=== PATIENT | female | born 1935 | race Caucasian/White ===

== ENCOUNTER 2021-05-02 11:44 | Inpatient (IN) | payer MEDICARE, BC ==
--- OUTSIDE RECORDS SUMMARY | 2021-05-02 15:42 | XMSREPORT ---
:[address] [facility] s Address [address] [place] [address] Care Team Providers Name Role Phone MD Donnie Primary Care Provider Provider, Attributed RESOURCE Attributed Provider Unavailab le Reason for Visit Reason Comments Fall Patient states that she fell last night, because her leg gave out on her and now her knees and hips h urt and she doesnt feel like she can walk Knee Pain Auth/Cert Status Reason Specialty Diagnoses / Procedures Referred By Yasmany franz Referred To Contact Encounter Details Date Type Department Care Team Description [facility] [address] [place] [address] [phone] Atrial fibrillation 05/02/2021 Encounter [facility] Lenora Stallworth W, DO [address] [place] [address] [phone] ([facility]) [address] [facility] Treva Esquivel MD [address] [place] [address] [phone] [place] [address] Nilson Bush MD [address] [place] [address] [phone] Allergies Active Allergy Reactions Severity Noted Date Comments Janet Inhibitors Wheezing/Bronchospasm (High) High 02/22/2012 Sulfa Drugs Hives (High), Rash High 02/22/2012 documented as of this encounter (statuses as of 05/02/2021) Medications Medication Sig Dispensed Refills Start End Status Date Date losartan (COZAAR) 25 Take 25 mg by 0 Active mg tablet mouth 1 time per day rosuvastatin Take 1 tablet 90 tablet 4 08/29/19 Act hira (CRESTOR) 10 mg (10 mg) by mouth 19 tabletIndications: 1 time per day 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 (HCC) tamsulosin (FLOMAX) Take 1 capsule 90 capsule 1 10/22/19 Active 0.4 mg (0.4 mg) by 19 capsuleIndications: mouth 1 time per Recurrent UTI day potassium chloride Take 30 mEq by 0 04/25/20 Active (KLOR-CON M10) 10 mouth 1 time per 19 MEQ CR tablet day metoprolol succinate Take 50 mg by 1 06/09/20 Active (TOPROL XL) 50 mg SR mouth 1 time per 19 tablet (24 hr) day Multiple Take 1 capsule 0 Activ e Vitamins-Minerals by mouth 1 time (EYE VITAMINS) CAPS per day vitamin D3, Take 50 mcg by 0 Act hira cholecalciferol, 50 mouth 1 time per mcg (2000 unit) day tablet predniSONE 5 mg Take 1 tablet 90 tablet 2 01/22/20 Active tabletIndications: once a day. 21 Dermatomyositis Take after (HCC) breakfast. furosemide (LASIX) Take 1 tablet 90 tablet 4 02/29/20 Active 40 mg (40 mg) by mouth 21 tabletIndications: 1 time per day Acute on chronic systolic congestive heart failure (HCC) apixaban (ELIQUIS) 5 Take 1 tablet (5 60 tablet 0 05/02/20 Active MG mg) by mouth 2 tabletIndications: times a day Atrial Fibrillation Indications: Atrial Fibrillation omeprazole Take 1 capsule 60 capsule 0 05/02/20 Act hira (PRILOSEC) 20 mg (20 mg) by mouth capsuleIndications: 2 times a day Gastroesophageal before meals reflux disease without esophagitis aspirin 81 mg Take 81 mg by 0 Di scontinued enteric coated mouth every (St op Taking at tablet night at bedtime Dis charge) melatonin 5 MG TABS Take 5 mg by 0 Discontinued tablet mouth every (Data en try night at bedtime err or) acetaminophen Take 500 mg by 0 D iscontinued (TYLENOL) 500 mg mouth every 021 ( Stop Taking at tablet night at bedtime Dis charge) predniSONE 2.5 mg Take 5 mg once a 180 tablet 2 08/23/1904/07 Discontinued tabletIndications: day. Take after 021 (Stop Taking at Dermatomyositis breakfast. 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 Coronary artery disease involving kiowa tribe coronary kelli ry of kiowa tribe heart 08/27/2018 with angina pectoris Severe aortic stenosis 08/19/2018 Pneumonia 08/13/2018 Interstitial lung disease 08/13/2018 Shortness of breath 08/13/2018 Osteopenia 01/10/2015 Chronic pain 01/10/2015 Pulmonary fibrosis 01/10/2015 Osteoarthritis 09/26/2010 Other musculoskeletal symptoms referable to limbs(729. 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 Dermatomyositis 06/22/2006 Essential hypertension, benign 06/22/2006 Symptomatic menopausal or female climacteric states Other hyperlipidemia 06/22/2006 Disorder of bone and cartilage 06/22/2006 Personal history of other diseases of digestive system 09/11/2001 documented as of this encounter (statuses as of 05/02/2021) Resolved Problems Problem Noted Date Resolved Date Elevated troponin 08/13/2018 02/28/2021 CHF exacerbation 08/13/2018 02/28/2021 documented as of this encounter (statuses as of 05/02/2021) Immunizations Name Administration Dates Next Due Influenza Trivalent w/preserv 06/20/2010, 08/25/2009, 05/27, 06/03/2007, 06/22/2004, 06/04/2003 Pneumococcal Polysaccharide PPSV23 07/06/2004 Td(adult)preservative free 06/14/2005 documented as of this encounter Social History Tobacco Use Types Packs/Day Years Used Date Never Smoker Smokeless Tobacco: Never Used Alcohol Use Standard Drinks/Week Comments No 0 (1 standard drink = 0.6 oz pure alcoho l) Alcohol Habits Answer Date Recorded How often do you have a drink containing alcohol? Never 04/27/2021 How many drinks containing alcohol do you have on a typical Not asked day when you are drinking? How often do you have six or more drinks on one occasion? No t asked Comment: Not asked Sex Assigned at Date Recorded Not on file documented as of this encounter Last Filed Vital Signs Vital Sign Reading Time Taken Comments Blood Pressure 107/56 05/02/2021 11:32 AM CDT Pulse 92 05/02/2021 11:32 AM CDT Temperature 36.9 C (98.4 F) 05/02/2021 11:32 AM CDT Respiratory Rate 16 05/02/2021 11:32 AM CDT Oxygen Saturation 91% 05/02/2021 11:32 AM CDT Inhaled Oxygen Concentration - - Weight 71.5 kg (157 lb 10.1 oz) 04/27/2021 8:23 AM CDT Height 162.6 cm (5' 4.02") 04/27/2021 5:00 PM CDT Body Mass Index 27.04 04/27/2021 8:23 AM CDT documented in this encounter Functional Status Functional Status Response Date of Assessment Is the person deaf or does he/she have serious difficulty Ye s 10/09/2018 hearing? Is this person blind or does he/she have difficulty No 10/09/2018 seeing even when wearing glasses? Do you have difficulty with walking, balance, climbing Yes 02/28/2021 stairs, or had a fall in the last 3 months? Does the patient have difficulty dressing or bathing? Yes 10/09/2018 Because of a physical, mental, or emotional condition; No 10/09/2018 does this person have difficulty doing errands alone such as visiting a doctor's office or shopping? Cognitive Status Response Date of Assessment Because of a physical, mental, or emotional condition; No 10/09/2018 does this person have serious difficulty concentrating, remembering, or making decisions? documented as of this encounter Discharge Summaries Not on filedocumented in this encounter Medications at Time of Discharge Medication Sig Dispensed Refills Start Date End Date apixaban (ELIQUIS) 5 MG Take 1 tablet (5 mg) 60 tablet 0 06/01/2021 tabletIndications: by mouth 2 times a Atrial Fibrillation day Indications: Atrial Fibrillation omeprazole (PRILOSEC) 20 Take 1 capsule (20 60 capsule 0 06/01/2021 mg capsuleIndications: mg) by mouth 2 times Gastroesophageal reflux a day before meals disease without esophagitis furosemide (LASIX) 40 mg Take 1 tablet (40 90 tablet 4 02/04 tabletIndications: Acute mg) by mouth 1 time on chronic systolic per day congestive heart failure (HCC) predniSONE 5 mg Take 1 tablet once a 90 tablet 2 01/21/2021 tabletIndications: day. Take after Dermatomyositis (HCC) breakfast. potassium chloride Take 30 mEq by mouth 0 019 (KLOR-CON M10) 10 MEQ CR 1 time per day tablet metoprolol succinate Take 50 mg by mouth 1 2018 (TOPROL XL) 50 mg SR 1 time per day tablet (24 hr) tamsulosin (FLOMAX) 0.4 Take 1 capsule (0.4 90 capsule 1 mg capsuleIndications: mg) by mouth 1 time Recurrent UTI per day losartan (COZAAR) 25 mg Take 25 mg by mouth 0 tablet 1 time per day vitamin D3, Take 50 mcg by mouth 0 cholecalciferol, 50 mcg 1 time per day (2000 unit) tablet Multiple Take 1 capsule by 0 Vitamins-Minerals (EYE mouth 1 time per day VITAMINS) CAPS rosuvastatin (CRESTOR) Take 1 tablet (10 90 tablet 4 2018 10 mg tabletIndications: mg) by mouth 1 time Coronary artery disease per day involving kiowa tribe coronary artery of kiowa tribe heart with angina pectoris (HCC) documented as of this encounter Progress Notes Treva Esquivel MD - 05/01/2021 12:52 PM CDT PROGRESS NOTE ASSESSMENT AND PLAN Heidi is a 85-year-old female with past medical history of CAD s/p PCI, history of diabetes 2019 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 ER work-up showed UTI. EKG showed atrial fibrillation. X-ray of the knees/pelvis did not show any new fracture. Blood cultures were drawn troponin was 0.018 white count 10.4 hemoglobin 10.7 [id number] potassium 4.1 sodium 140 creatinine 0.8 magnesium 2.0 #Klebsiella UTI #Physical deconditioning #Mechanical fall Rocephin last dose today, pansensitive PT OT - SNF Fall risk #New atrial fibrillation #[id number] score of 5 Risks benefits were addressed with the patient by the admitting doctor and she was started on Eliquis. Metoprolol for rate control #CAD s/p PCI #Aortic stenosis s/p TAVR #Chronic diastolic heart failure Continue metoprolol, Lasix, losartan - dc aspirin as she is now on eliquis #Dermatomyositis on prednisone with Prilosec for GI prophylaxis Home dose resumed # OA - low back hip knee- no acute #, able to bear weight - tylenol lidocaine patch menthol Flexerilas ordered CODE STATUS DNR Disposition - pending SNF placement Subjective No acute events overnight Objective Vital signs reviewed Alert and oriented S1 variable Chest clear to auscultation Abdomen is soft Trace ankle edema Treva Zavala MD - 04/30/2021 12:28 PM CDT PROGRESS NOTE ASSESSMENT AND PLAN Heidi is a 85-year-old female with past medical history of CAD s/p PCI, history of diabetes 2019 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 ER work-up showed UTI. EKG showed atrial fibrillation. X-ray of the knees/pelvis did not show any new fracture. Blood cultures were drawn troponin was 0.018 white count 10.4 hemoglobin 10.7 [id number] potassium 4.1 sodium 140 creatinine 0.8 magnesium 2.0 #Klebsiella UTI #Physical deconditioning #Mechanical fall Rocephin last dose today, pansensitive PT OT - SNF Fall risk #New atrial fibrillation #[id number] score of 5 Risks benefits were addressed with the patient by the admitting doctor and she was started on Eliquis. Metoprolol for rate control #CAD s/p PCI #Aortic stenosis s/p TAVR #Chronic diastolic heart failure Continue metoprolol, Lasix, losartan - dc aspirin as she is now on eliquis #Dermatomyositis on prednisone with Prilosec for GI prophylaxis Home dose resumed # OA - low back hip knee- no acute #, able to bear weight - tylenol lidocaine patch menthol as ordered CODE STATUS DNR Disposition - pending SNF placement Subjective No acute events overnight Objective Vital signs reviewed Alert and oriented S1 variable Chest clear to auscultation Abdomen is soft Trace ankle edema Treva Zavala MD - 04/29/2021 4:34 PM CDT PROGRESS NOTE ASSESSMENT AND PLAN Heidi is a 85-year-old female with past medical history of CAD s/p PCI, history of diabetes 2019 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 ER work-up showed UTI. EKG showed atrial fibrillation. X-ray of the knees/pelvis did not show any new fracture. Blood cultures were drawn troponin was 0.018 white count 10.4 hemoglobin 10.7 potassium 4.1 sodium 140 creatinine 0.8 magnesium 2.0 #Klebsiella UTI #Physical deconditioning #Mechanical fall Continue Rocephin, pansensitive PT OT - SNF Fall risk #New atrial fibrillation #[id number] score of 5 Risks benefits were addressed with the patient by the admitting doctor and she was started on Eliquis. Metoprolol for rate control #CAD s/p PCI #Aortic stenosis s/p TAVR #Chronic diastolic heart failure Continue metoprolol, Lasix, losartan - dc aspirin as she is now on eliquis #Dermatomyositis on prednisone with Prilosec for GI prophylaxis Home dose resumed CODE STATUS DNR Disposition - pending SNF placement Subjective No acute events overnight Objective Vital signs reviewed Alert and oriented S1 variable Chest clear to auscultation Abdomen is soft Trace ankle edema Treva robertson MD - 04/28/2021 3:16 PM CDT PROGRESS NOTE ASSESSMENT AND PLAN Heidi is a 85-year-old female with past medical history of CAD s/p PCI, history of diabetes 2019 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 ER work-up showed UTI. EKG showed atrial fibrillation. X-ray of the knees/pelvis did not show any new fracture. Blood cultures were drawn troponin was 0.018 white count 10.4 hemoglobin 10.7 potassium 4.1 sodium 140 creatinine 0.8 magnesium 2.0 #Klebsiella UTI #Physical deconditioning #Mechanical fall Continue Rocephin follow urine cultures and sensitivities Physical and Occupational Therapy consulted Fall risk #New atrial fibrillation #[id number] score of 5 Risks benefits were addressed with the patient by the admitting doctor and she was started on Eliquis. Metoprolol for rate control #CAD s/p PCI #Aortic stenosis s/p TAVR #Chronic diastolic heart failure Continue metoprolol, Lasix, losartan - dc aspirin as she is now on eliquis #Dermatomyositis on prednisone with Prilosec for GI prophylaxis Home dose resumed CODE STATUS DNR Subjective States that she is falling apart on physical deconditioning Has chronic knee pain and sometimes her knees give out At baseline walks with a walker Objective Vital signs reviewed Alert and oriented S1 variable Chest clear to auscultation Abdomen is soft Trace ankle edema documented in this encounter H&P Notes Lenora Stallworth DO - 04/27/2021 2:53 PM CDT Hospital Admission History and Physical Chief complaint: Fall, weakness History of chief complaint: Patient is an 85-year-old female with a background history of coronary disease with PCI to LAD in 2019. She had a history of PIETRO in 2019. She is on prednisone chronicallyfor dermatomyositis. Last night patient was try to walk up the stairs when her leg gave out. She did not sustain any injury injury to her head or neck. There is no loss of consciousness. Today she comes in the ER complaining of pain in her knees and generalized weakness. In the emergency department patient had a positive urinalysis with positive leuk esterase and positive nitrates and greater than 50 white cells. Patient's EKG showed that she was in atrial fibrillation. I am unable to locate any previous EKGs showing atrial fibrillation or any previous diagnosis on her chart. Patient had x-rays of both of her knees and her pelvis which did not show any acute fracture. Patient has had urinary frequency recently. She had asked her primary care physician to do a urinalysis by the PCP told her that it was not indicated. Review of systems: No loss of consciousness no head or neck injury no previous history of atrial fibrillation no fevers positive urinary frequency rest review of systems are negative Physical exam patient's vital signs patient afebrile pulse 64 respiratory rate is 16 blood pressure 148/98 saturation 92 % General she resting bed no acute distress head atraumatic eyes no icterus heart is a regular lungs are clear to auscultation abdomen soft nontender extremities no pitting edema neurologic alert and oriented mentating well psychiatric is calm pleasant cooperative skin no rash noted musculoskeletal no major joint deformities no pain with range of motion however ankles knees or hips. No pain with rangeof motion of her wrist elbows or shoulders. She has some very minimal tenderness in the soft tissueand in her posterior left thigh. Labs: Troponin is 0.018 0.016 white count 10.4 hemoglobin is 10.7 platelet count is 210 glucose 91 sodium is 140 potassium is 4.1 bicarb is 24 creatinine 0.8 calcium is 8.8 magnesium is 2.0 LFTs withinnormal limits Assessment: 1. Fall without apparent injury 2. UTI, suspect this is causing her weakness 3. New onset atrial fibrillation with controlled rate 4. History of coronary disease with previous PCI and very minimally elevated troponin without any anginal symptoms 5. History of Pietro 6. Dermatomyositis on prednisone 7. Hypertension 8. Chronic diastolic heart failure Plan: 1. IV ceftriaxone 2. IV fluids 3. PT consult 4. Await results of urine culture 5. ekg monitor 6. TSH 7. Trend troponin 8. Patient has a [id number] score of 5, discussed risk versus benefits of anticoagulation with patient and she agrees to proceed we will initiate treatment with Eliquis 9. PPI while on anticoagulation plus prednisone 10. Double dose of prednisone due to stress severe acute illness 11. Patient is DNR. Patient reports that she did CPR on her mother and understands what CPR is. History Prior to Admission Medications Prescriptions Last Dose Informant Patient Reported? Taking? Multiple Vitamins-Minerals (EYE VITAMINS) CAPS Yes No Sig: Take 1 capsule by mouth 1 time per day acetaminophen (TYLENOL) 500 mg tablet Yes No Sig: Take 500 mg by mouth every night at bedtime Patient not taking: Reported on 01/21/2021 aspirin 81 mg enteric coated tablet Self Yes No Sig: Take 81 mg by mouth every night at bedtime furosemide (LASIX) 40 mg tablet Yes No Sig: Take 1 tablet (40 mg) by mouth 1 time per day losartan (COZAAR) 25 mg tablet Self Yes No Sig: Take 25 mg by mouth 1 time per day melatonin 5 MG TABS tablet Yes No Sig: Take 5 mg by mouth every night at bedtime metoprolol succinate (TOPROL XL) 50 mg SR tablet (24 hr) Yes No Sig: Take 50 mg by mouth 1 time per day potassium chloride (KLOR-CON M10) 10 MEQ CR tablet Yes No Sig: Take 30 mEq by mouth 1 time per day predniSONE 2.5 mg tablet No No Sig: Take 5 mg once a day. Take after breakfast. predniSONE 5 mg tablet No No Sig: Take 1 tablet once a day. Take after breakfast. rosuvastatin (CRESTOR) 10 mg tablet Self No No Sig: Take 1 tablet (10 mg) by mouth 1 time per day tamsulosin (FLOMAX) 0.4 mg capsule No No Sig: Take 1 capsule (0.4 mg) by mouth 1 time per day vitamin D3, cholecalciferol, 50 mcg (2000 unit) tablet Yes No Sig: Take 50 mcg by mouth 1 time per day Facility-Administered Medications: None Allergies Allergen Reactions Janet Inhibitors Wheezing/Bronchospasm (High) Sulfa Drugs Hives (High) and Rash Past Medical History: Diagnosis Date CAD (coronary artery disease), kiowa tribe coronary artery CHF (congestive heart failure) (HCC) CHF exacerbation (HCC) 08/13/2018 Dermatomyositis (HCC) Elevated troponin 08/13/2018 Hyperlipidemia Hypertension Pulmonary fibrosis (HCC) Severe aortic stenosis 08/19/2018 Past Surgical History: Procedure Laterality Date CHOLECYSTECTOMY HYSTERECTOMY UPPER ENDOSCOPY N/A 08/22/2018 Procedure: UPPER ENDOSCOPY;; Surgeon: Lulu Cox MD Family History Problem Relation Age of Onset Heart Father Diabetes Father Type II Heart Mother Diabetes Mother Type II Heart Failure Mother CHF Diabetes Sister Type II Heart Sister heart problems Bladder Cancer Neg Hx Kidney Cancer Neg Hx Kidney Disease Neg Hx Nephrolithiasis Neg Hx Prostate Cancer Neg Hx Testicular Cancer Neg Hx Social History Socioeconomic History Marital status: Spouse name: Not on file Number of children: 2 Years of education: 15 Highest education level: Not on file Occupational History Occupation: Retired nurse Tobacco Use Smoking status: Never Smoker Smokeless tobacco: Never Used Substance and Sexual Activity Alcohol use: No Drug use: No Social Determinants of Health Physical Activity: Days of Exercise per Week: Minutes of Exercise per Session: Stress: Feeling of Stress : Social Connections: Frequency of Communication with Friends and Family: Frequency of Social Gatherings with Friends and Family: Attends Buddhist Services: Active Member of Clubs or Organizations: Attends Club or Organization Meetings: Marital Status: Intimate Partner Violence: Fear of Current or Ex-Partner: Emotionally Abused: Physically Abused: Sexually Abused: Financial Resource Strain: Difficulty of Paying Living Expenses: Food Insecurity: Worried About Running Out of Food in the Last Year: Ran Out of Food in the Last Year: Transportation Needs: Lack of Transportation (Medical): Lack of Transportation (Non-Medical): Review of Systems Review of Systems Physical / Results Current Vital Signs Temp: 98.5 F (36.9 C) BP: 120/63 Weight: 71.5 kg (157 lb 10.1 oz) SpO2: 98 % Resp: 17 Pulse: 83 O2 Device: Room Air Pain Ratin Physical Exam documented in this encounter ED Notes Nicho Ruth RN - 04/27/2021 1:17 PM CDT Ordered pt food. Leopoldo Li MD - 04/27/2021 9:00 AM CDT Images from the original note were not included. DIAGNOSIS 1. Weakness 2. Contusion of knee, unspecified laterality, initial encounter 3. Urinary tract infection without hematuria, site unspecified DISPOSITION Patient Admitted and Treated in this Facility Data Unavailable SunApr 27, 2021 9:00 AM CDT FOLLOW UP INFORMATION DISCHARGE MEDS Medication List ASK your doctor about these medications aspirin 81 mg enteric coated tablet eye vitamins Caps furosemide 40 mg tablet Commonly known as: LASIX losartan 25 mg tablet melatonin 5 MG Tabs tablet metoprolol succinate 50 mg SR tablet (24 hr) Commonly known as: TOPROL XL potassium chloride 10 MEQ CR tablet Commonly known as: KLOR-CON M10 * predniSONE 2.5 mg tablet Take 5 mg once a day. Take after breakfast. * predniSONE 5 mg tablet Take 1 tablet once a day. Take after breakfast. rosuvastatin 10 mg tablet Commonly known as: CRESTOR Take 1 tablet (10 mg) by mouth 1 time per day tamsulosin 0.4 mg capsule Commonly known as: Flomax Take 1 capsule (0.4 mg) by mouth 1 time per day TYLENOL 500 mg tablet Generic drug: acetaminophen vitamin D3 (cholecalciferol) 50 mcg (2000 unit) tablet * This list has 2 medication(s) that are the same as other medications prescribed for you. Read thedirections carefully, and ask your doctor or other care provider to review them with you. HPI / History / ROS Chief Complaint Patient presents with Fall Patient states that she fell last night, because her leg gave out on her and now her knees and hips hurt and she doesnt feel like she can walk Knee Pain HPI 85-year-old female with history significant for CAD, hypertension, hyperlipidemia. She arrives today to the emergency department secondary to generalized weakness and bilateral knee pain. This patient reports she was try to fix her toilet and she developed a strain in her left hamstrings yesterday. Today she has noted increasing generalized weakness. The patient reports that her knee gave outthis morning she fell onto her knees fairly hard. She had no head injury, loss of consciousness denies head or neck pain. Since that time she has been unable to perform basic activities like get up and get to the bathroom. She does live in a split-level house and cannot navigate the stairs at this time. She otherwise denies fever, chills, cough, nausea, vomiting. She denies melena or hematochezia. She denies dysuria or urinary frequency. At rest pain is rated at minimal. Some minor pain in the left distal thigh with movement. No distal change in strength or sensation. ALLERGIES Allergies Allergen Reactions Janet Inhibitors Wheezing/Bronchospasm (High) Sulfa Drugs Hives (High) and Rash MEDICAL/SURGICAL/SOCIAL HISTORY Past Medical History: Diagnosis Date CAD (coronary artery disease), [place] coronary artery CHF (congestive heart failure) (HCC) CHF exacerbation (HCC) 08/13/2018 Dermatomyositis (HCC) Elevated troponin 08/13/2018 Hyperlipidemia Hypertension Pulmonary fibrosis (HCC) Severe aortic stenosis 08/19/2018 Past Surgical History: Procedure Laterality Date CHOLECYSTECTOMY HYSTERECTOMY UPPER ENDOSCOPY N/A 08/22/2018 Procedure: UPPER ENDOSCOPY;; Surgeon: Lulu Cox MD Family History Problem Relation Age of Onset Heart Father Diabetes Father Type II Heart Mother Diabetes Mother Type II Heart Failure Mother CHF Diabetes Sister Type II Heart Sister heart problems Bladder Cancer Neg Hx Kidney Cancer Neg Hx Kidney Disease Neg Hx Nephrolithiasis Neg Hx Prostate Cancer Neg Hx Testicular Cancer Neg Hx Social History Socioeconomic History Marital status: Spouse name: Not on file Number of children: 2 Years of education: 15 Highest education level: Not on file Occupational History Occupation: Retired nurse Tobacco Use Smoking status: Never Smoker Smokeless tobacco: Never Used Substance and Sexual Activity Alcohol use: No Drug use: No Social Determinants of Health Physical Activity: Days of Exercise per Week: Minutes of Exercise per Session: Stress: Feeling of Stress : Social Connections: Frequency of Communication with Friends and Family: Frequency of Social Gatherings with Friends and Family: Attends Buddhist Services: Active Member of Clubs or Organizations: Attends Club or Organization Meetings: Marital Status: Intimate Partner Violence: Fear of Current or Ex-Partner: Emotionally Abused: Physically Abused: Sexually Abused: Financial Resource Strain: Difficulty of Paying Living Expenses: Food Insecurity: Worried About Running Out of Food in the Last Year: Ran Out of Food in the Last Year: Transportation Needs: Lack of Transportation (Medical): Lack of Transportation (Non-Medical): HOME MEDICATIONS Current Outpatient Medications Medication Sig furosemide (LASIX) 40 mg tablet Take 1 tablet (40 mg) by mouth 1 time per day vitamin D3, cholecalciferol, 50 mcg (2000 unit) tablet Take 50 mcg by mouth 1 time per day predniSONE 5 mg tablet Take 1 tablet once a day. Take after breakfast. melatonin 5 MG TABS tablet Take 5 mg by mouth every night at bedtime acetaminophen (TYLENOL) 500 mg tablet Take 500 mg by mouth every night at bedtime (Patient not taking: Reported on 01/21/2021) Multiple Vitamins-Minerals (EYE VITAMINS) CAPS Take 1 capsule by mouth 1 time per day predniSONE 2.5 mg tablet Take 5 mg once a day. Take after breakfast. potassium chloride (KLOR-CON M10) 10 MEQ CR tablet Take 30 mEq by mouth 1 time per day metoprolol succinate (TOPROL XL) 50 mg SR tablet (24 hr) Take 50 mg by mouth 1 time per day tamsulosin (FLOMAX) 0.4 mg capsule Take 1 capsule (0.4 mg) by mouth 1 time per day rosuvastatin (CRESTOR) 10 mg tablet Take 1 tablet (10 mg) by mouth 1 time per day aspirin 81 mg enteric coated tablet Take 81 mg by mouth every night at bedtime losartan (COZAAR) 25 mg tablet Take 25 mg by mouth 1 time per day ROS Review of Systems Constitutional: Positive for fatigue. Negative for appetite change, chills and fever. HENT: Negative for congestion, ear pain, rhinorrhea and sore throat. Eyes: Negative. Negative for visual disturbance. Respiratory: Negative for cough, chest tightness, shortness of breath and wheezing. Cardiovascular: Negative. Negative for chest pain, palpitations and leg swelling. Gastrointestinal: Negative for abdominal pain, blood in stool, diarrhea, nausea and vomiting. Endocrine: Negative. Genitourinary: Negative for difficulty urinating, dysuria and flank pain. Musculoskeletal: Positive for arthralgias. Negative for back pain and joint swelling. Skin: Negative. Negative for color change, rash and wound. Allergic/Immunologic: Negative for immunocompromised state. Neurological: Positive for weakness. Negative for light-headedness and headaches. Hematological: Does not bruise/bleed easily. Psychiatric/Behavioral: Negative. Negative for confusion. All other systems reviewed and are negative. Physical / Results PHYSICAL EXAM ED Triage Vitals [04/27/21 0823] Temp Temp Source Pulse Resp BP SpO2 O2 Flow Rate (L/min) O2 Device 97.9 F (36.6 C) Oral 84 15 159/79 99 % -- RA Physical Exam Vitals and nursing note reviewed. Constitutional: General: She is not in acute distress. Appearance: She is well-developed. She is not diaphoretic. HENT: Head: Normocephalic and atraumatic. Right Ear: Hearing and external ear normal. Left Ear: Hearing and external ear normal. Nose: Nose normal. Mouth/Throat: Pharynx: No oropharyngeal exudate or uvula swelling. Tonsils: No tonsillar abscesses. Eyes: Conjunctiva/sclera: Conjunctivae normal. Right eye: Right conjunctiva is not injected. Left eye: Left conjunctiva is not injected. Pupils: Pupils are equal, round, and reactive to light. Neck: Trachea: Phonation normal. Cardiovascular: Rate and Rhythm: Normal rate and regular rhythm. Pulses: Normal pulses. Heart sounds: Normal heart sounds. No murmur heard. Pulmonary: Effort: Pulmonary effort is normal. No respiratory distress. Breath sounds: Normal breath sounds. No rales. Chest: Chest wall: No tenderness or crepitus. Abdominal: General: There is no distension. Palpations: Abdomen is soft. Abdomen is not rigid. There is no mass. Tenderness: There is no abdominal tenderness. There is no guarding or rebound. Musculoskeletal: General: Normal range of motion. Cervical back: Full passive range of motion without pain and normal range of motion. No rigidity.Normal range of motion. Right upper leg: No swelling, edema or tenderness. Left upper leg: No swelling, edema or tenderness. Right knee: No bony tenderness. Normal range of motion. Tenderness present. Left knee: No bony tenderness. Normal range of motion. Tenderness present. Legs: Skin: General: Skin is warm and dry. Capillary Refill: Capillary refill takes less than 2 seconds. Coloration: Skin is not pale. Findings: No erythema or rash. Neurological: Mental Status: She is alert and oriented to person, place, and time. GCS: GCS eye subscore is 4. GCS verbal subscore is 5. GCS motor subscore is 6. Cranial Nerves: No cranial nerve deficit. Sensory: No sensory deficit. Psychiatric: Speech: Speech normal. Behavior: Behavior normal. Scoring Scales [place] Coma Scale Score: 15 ED COURSE PROCEDURES Procedures MDM-CODING: MDM 85-year-old female with history significant for CAD, hypertension, hyperlipidemia. She arrives today to the emergency department secondary to generalized weakness and bilateral knee pain. On arrival to the emergency department this patient is noted to be alert. She is presently afebrile and hemodynamically stable with mild hypertension. GCS 15. She has no signs of neurovascular deficit. My clinical suspicion for stroke, dissection, intracranial bleed warranting CT imaging of the head is very low. She has no head trauma. She otherwise is interactive with no signs of respiratory distress. Low suspicion for dysrhythmia, ACS, pulmonary embolus, pneumothorax or pneumonia. Etiology of weaknessis unclear. She has no abdominal discomfort. No sign of GI loss I would plan for laboratory studies. Certainly urinary tract infection would be a strong consideration. She does report at times the s ensation she does not fully empty her bladder. From a traumatic standpoint I do not see any obvioussigns of trauma. No sign of posterior left thigh ecchymosis, hematoma. There is no deformity. My clinical suspicion for hip or the fracture would be low. I did obtain imaging demonstrating no sign of obvious fracture. Urinalysis consistent with urinary tract infection likely explaining weakness. Plan for antibiotics. Additionally EKG does demonstrate what appears to be rate controlled atrial fibrillation this appears to be new. Case discussed with hospital internal medicine for plan for acute hospitalization. Nicho Azul RN - 04/27/2021 8:25 AM CDT Plan of care includes addressing Musculoskeletal with attention to Fall (Patient states that she fell last night, because her leg gave out on her and now her knees and hips hurt and she doesnt feel like she can walk) and Knee Pain . documented in this encounter Miscellaneous Notes Care Planning - Halley Pugh RN - 05/02/2021 12:30 PM CDT Problem: RISK FOR FALLS Goal: FALL PREVENTION BEHAVIOR Description: DEFINITION: Personal or family care rep actions to minimize risk factors that might precipitate falls in the personal environment. 1=Never demonstrated, 2=Rarely demonstrated, 3=Sometimes demonstrated, 4=Often demonstrated, 5=Consistently demonstrated. Outcome: Outcome acceptable for discharge Vanessa Acuña LSW - 05/02/2021 11:58 AM CDT CASE MANAGEMENT REFERRAL EDUCATION Patient in need of the following services: Transitional Care / Fdc Facility / Swing Bed Discussion of this need and/or printed listing of available agencies has been provided to patient/substitute decision maker. Opportunities have been given for questions to be asked and answered. Patient/Substitute decision maker agency preferences for services (list in order of preference): 1. [place]/[facility] 2. [place]/[facility] Referrals Made: Profiled via [facility] to [facility] SNFs and [facility] SNFs/swingbed Medicare Comparison Information: Medicare guidelines require referring agencies to provide information regarding agency quality ratings. [facility] may assist with questions about facilities but cannot make recommendations. Patients and their families/decision makers are able to compare ratings of facilities at the following website: h ttps://www.medicare.gov/wifpb-psmh-jefnpxxjl/rkhu-bbkxgxc-zjfymap-[facility]-providers or you may call 1-800-MEDICARE Acceptance/Placement: [facility] shares necessary clinical information with potential agencies to allow them to screen patients for safe admission to their facilities. This information is shared via secure communication. Acceptance by a post-acute facility is dependent on many factors including space, care needs, staffing, and insurance coverage. Financial disclosure: Verification of ownership of any agency/facility is available in the above Medicare website. [facility] is affiliated with [facility]-owned home care, hospice, andskilled nursing facilities, including agencies with [employer] in the name and [employer]. Additional agencies may not have [employer] in their name. Medicare guidelines require [facility] to provide a written list of options for your desired care. Youwill be provided a copy if desired. A copy of this document will be given to patient/substitute decision maker as confirmation of conversation regarding referrals and placement options. SIGNED: ROSA Ny [employer] Case Management [facility]--[place], [place] P) [phone] ase Mgmt - Vanessa Lee LSW - 05/02/2021 11:02 AM CDT CASE MANAGEMENT / SOCIAL SERVICE FINAL TRANSITION PLAN TRANSITION DATE: 05/02 TRANSITION TIME: 1230/1300 INTENDED PAYER SOURCE FOR AGENCY: Medicare TRANSITION DESTINATION: [address] JOSTIN Solis Nurse to nurse: [phone] MD to MD: [phone] SPECIAL TRANSITION DAY INSTRUCTIONS TO NURSE / MD: RECEPTION CLERK: Please fax paperwork to above fax number Nursing: please call report at above number before or just as patient leaves. MD: please do Interagency transfer order set, ensure orders for PT, OT, ST(if needed) are included. When doing medication orders, there cannot be any range orders, and indication is needed for all meds. DOES ACCEPTING FACILITY REQUIRE COVID TESTING BEFORE DISCHARGE: Needs one negative test within 24-48 hours TRANSITION TRANSPORTATION: Family Car TRANSPORTATION PAYMENT: Not applicable TRANSITION CHOICES OFFERED: Swing Bed Transitional Care DOES THE PATIENT HAVE A PRIMARY CARE PHYSICIAN? Yes Edy Fields MD PATIENT / SUBSTITUTE DECISION MAKER GOAL UPON TRANSITION: First Choice: Swing Bed PATIENT CHOICE EDUCATION: Choice form completed in Case Management note and copy given to patient/family MEDICARE 3 IP MIDNIGHT CRITERIA MET: Yes: met RESOURCE(S) PROVIDED: Placement DOES PATIENT HAVE CLOTHING TO WEAR AT DISCHARGE? Yes ANTICIPATED MODE OF TRANSPORT TO AND FROM FOLLOW UP APPOINTMENTS: As arranged by accepting facility Family Car VERIFIED CORRECT PHARMACY IS ENTERED FOR DISCHARGE: Yes - Pharmacy: [facility] ([facility] [address] [address] METHOD OF PRESCRIBING MEDICATIONS: Medications to be E-prescribed to above pharmacy TRANSITION ROUNDING COMPLETED WITH THE FOLLOWING: Patient / family Visual Associate Attending Bedside RN Discussed in person Discussed via telephone Secure chat COMMENTS / PATIENT AND FAMILY RESPONSE TO PLAN: Met with patient at bedside and reviewed d/c plan. Patient agreeable to bed offer from [facility]. Update provided to daughter via phone and she will provide transportation to [facility]. All d/c details coordinated with [facility] at [facility]. JOSTIN PAS submitted on May 02, 2021 at 11:28:43 AM CDT. The confirmation number is [id number]. CURRENT READMISSION RISK SCORE / HANDOFF: Predictive Risk Score Risk of Unplanned Readmission: 12.1 Handoff given: N/A SIGNED: ROSA Ny [employer] Case Management [facility] [place] P) [phone] linical Team - Ronda Larsen RN - 05/02/2021 1:50 AM CDT Shift Summary: [id number] Medication adherent. Reported generalized pain on left leg and knees bilateral. COCOPAH bilateral, hearing aids in. Pleasant and cooperative. PRN APAP administered for generalized pain. Assessment Neuro: A/Ox4. Cardiac: Tele- A-Fib Pulmonary: Denies SOB. Lungs are clear. GI/: No issues with elimination. IV's/Lines: L AC 20 g Mobility: Gait belt, FWW. Up with one. Will continue to monitor. are Planning - Ronda Larsen RN - 05/02/2021 1:49 AM CDT Problem: RISK FOR FALLS Goal: FALL PREVENTION BEHAVIOR Description: DEFINITION: Personal or family care rep actions to minimize risk factors that might precipitate falls in the personal environment. 1=Never demonstrated, 2=Rarely demonstrated, 3=Sometimes demonstrated, 4=Often demonstrated, 5=Consistently demonstrated. Outcome: NOC Rating 4 Flowsheets (Taken 05/02/2021 0148) Initial Score: 2 Target Score: 4 Plan of care reviewed with: Patient Patient specific goal for the day: Patient will use the call light appropriately Patient specific goal for the stay: Remains free from falls Achieve goal for stay: By discharge Patient Progress: A/Ox4. VSS on RA. Utilizes the call light appropriately. Gait belt and FWW used. Unsteady gait. Will continue to monitor. are Planning - Kaylin Kendall RN - 05/01/2021 12:49 PM CDT Problem: RISK FOR FALLS Goal: FALL PREVENTION BEHAVIOR Description: DEFINITION: Personal or family care rep actions to minimize risk factors that might precipitate falls in the personal environment. 1=Never demonstrated, 2=Rarely demonstrated, 3=Sometimes demonstrated, 4=Often demonstrated, 5=Consistently demonstrated. Flowsheets (Taken 05/01/2021 1247) Initial Score: 2 Target Score: 4 Plan of care reviewed with: Patient Patient specific goal for the day: Patient will use the call light appropriately Patient specific goal for the stay: Remains free from falls Achieve goal for stay: By discharge Patient Progress: A&Ox4, confused at times. VSS on RA. Pt is using the call light approprietly, will continue to monitor. linical Team - Myrna Juarez RN - 04/30/2021 11:51 PM CDT VSS (see flowsheets). No concerns of SOB. Patient states left leg pain from her buttocks down to herknee. Med ointment applied (see MAR). Patient states "could be sciatica pain." Turned as needed overnight for relief. No other concerns at this time. Will continue to monitor. linical Team - Rosalva Haq RN - 04/30/2021 5:51 PM CDT Pt sat in the chair for meals. She showered. Pt's pain was at her worst when she was in bed. Icy hotand lidocaine patches were placed on pt's Left back upper leg and around the knees. Pt also getting Tylenol. Pt did say that it did help. Will continue to monitor. are Planning - Rosalva Haq RN - 04/30/2021 5:51 PM CDT Problem: RISK FOR FALLS Goal: FALL PREVENTION BEHAVIOR Description: DEFINITION: Personal or family care rep actions to minimize risk factors that might precipitate falls in the personal environment. 1=Never demonstrated, 2=Rarely demonstrated, 3=Sometimes demonstrated, 4=Often demonstrated, 5=Consistently demonstrated. Outcome: NOC Rating 3 Flowsheets (Taken 04/30/2021 1750) Plan of care reviewed with: Patient Patient specific goal for the day: Be free of falls Patient specific goal for the stay: Remain free of falls/injury Achieve goal for stay: By discharge Patient Progress: Pt has been calling for help with assistance. She is weak on her feet. Will continue to monitor. are Planning - Caro Niño RN - 04/30/2021 4:28 AM CDT Problem: RISK FOR FALLS Goal: FALL PREVENTION BEHAVIOR Description: DEFINITION: Personal or family care rep actions to minimize risk factors that might precipitate falls in the personal environment. 1=Never demonstrated, 2=Rarely demonstrated, 3=Sometimes demonstrated, 4=Often demonstrated, 5=Consistently demonstrated. Outcome: NOC Rating 4 Flowsheets (Taken 04/30/2021 2537) Plan of care reviewed with: Patient Patient specific goal for the day: Call as needed Patient specific goal for the stay: Remain free of falls/injury Achieve goal for stay: By discharge Patient Progress: Calling as needed. VSS on RA Note: Bed alarms in place, PT ax4 and calls as needed linical Team - Nadiya Membreno RN - 04/29/2021 7:51 PM CDT [id number] AOx4. VSS on RA. Tele afib, rate controlled 80s. Denies chest pain, n/v and SOB. Up with 1 fww gb. IV abx. Planning for placement. ccupational Therapy - Nohemi Santiago OTR/L - 04/29/2021 2:30 PM CDT Occupational Therapy Acute Care Evaluation Note Impression/Recommendations Recommending low intensity setting upon medical stability. Patient is presenting with impairments including decreased strength/endurance. Patient is demonstrating ability to complete ADLs with assist of 1. Patient will continue to benefit from skilled OT in order to address the above deficits to increase functional independence in ADLs, IADLs, and transfers/mobility. Admitting Diagnosis: ICD-10-CM 1. Weakness R53.1 2. Contusion of knee, unspecified laterality, initial encounter S80.00XA 3. Urinary tract infection without hematuria, site unspecified N39.0 History of Present Illness: Refer to H&P for details Past Medical History: Past Medical History: Diagnosis Date CAD (coronary artery disease), [place] coronary artery CHF (congestive heart failure) (HCC) CHF exacerbation (HCC) 08/13/2018 Dermatomyositis (HCC) Elevated troponin 08/13/2018 Hyperlipidemia Hypertension Pulmonary fibrosis (HCC) Severe aortic stenosis 08/19/2018 Activity Level: Progressive mobility bundle Precautions: Fall Risk Infection Control: Standard Precautions Patient History Social/Home Environment: Patient lives: alone House: split level home Home Environment: Bed/Bath on main level: No Bathroom Setup: walk in shower with curtain Employment: retired Prior Level of Function Independent with: ADLs, medications, finances Assistance needed with: meals - meals on wheels T, W, TH and daughter cooks/bakes remainder of weekand freezes meals for patient. Daughter assists with cleaning, laundry, transportation Adaptive Equipment Available: grab bar toilet, grab bar shower Present for Eval: Patient Objective Activities of Daily Living: Feeding: independent Grooming: minimal assistance standing at sink, using FWW Upper Extremity Dressing: assist to adjust gown Lower Extremity Dressing: minimal assistance stephanie socks, flexed at hips all the way to feet; which could be a fall risk if alone Bathing: to be assessed Toileting: moderate assistance assist for lilia cares, adjusting brief Homemaking: daughter helps with majority Comments: Educated safety/energy conservation during ADLs Transfers: Bed: minimal assistance supine to sit Chair: minimal assistance using FWW Toilet: minimal assistance using FWW Tub/Shower: to be assessed Mobility/Ambulation: minimal assistance with FWW flexed posture during transfer/ambulation, reportsthis is baseline. Educated importance of upright posture during transfers/self cares At end of session: patient up in chair, call light and tray table within reach, education provided on use call light and waiting for assistance prior to transferring and Gripper socks and gait belt donned for all OOB activity. Pain: Pain at rest: 0/10 Pain during activity: 0/10 Location: none Vitals: Pt on room air with signs of shortness of breath during OT. Unable to get pulse ox to read during session; however patient reports no SOB upon therapist leaving room Upper Extremity Function: Range of Motion: Right:within functional limits Left: within functional limits Strength: Right: within functional limits Left: within functional limits Endurance: limited Cognition: Orientation: alert. Oriented to: Person, place, time, situation. COCOPAH Attention: intact Following Directions: intact Safety Awareness: appears intact Impulsivity: None Visual/Perception: Denies acute deficits Glasses: Yes- at all times Interdisciplinary Communication: patient Education Education/Training provided: Role of OT, plan of care, ADLs, transfers/mobility, safety, AE needs,d/c recommendations Learners: Patient Readiness: accepting Method of Training: verbal Response: Verbalizes understanding; Will benefit from continued reinforcement: yes Adaptive Equipment Recommendations Adaptive Equipment Recommended: To further assess Plan to obtain adaptive equipment: To further assess. Assessment/Plan Assessment: Patient demonstrates decreased UE strength, decreased physical conditioning, decreased independence with ADL/IADL tasks, decreased independence with functional mobility and decreased functional cognition Patient showing a decrease in ADL/transfer performance and will benefit from continued OT. Plan: Patient to be seen 3-5x/week to work toward goals listed below. Treatment plan will consist of Sunday thru Sunday sessions. Goals Patient/Family Stated Goal for Session: agreeable to therapy evaluation, Short Term Goals: Patient will tolerate 15-30 minutes U/E exercise to further increase independence with ADL/IADLs Patient will complete grooming task safely standing at the sink withSBAusing adaptive equipment as needed. Patient will complete LB dressing safely withSBAusing adaptive equipment as needed. Patient will complete toileting safely withSBAusing adaptive equipment as needed. Patient will complete functional transfers safely withSBAusing adaptive equipment as needed. Patient will further participate with cognitive assessment to increase safety with functional tasks. Patient will have AE in place to increase safety with ADLs by discharge Treatment Provided Educated safety/energy conservation during ADLs, see above for details Charges Treatment/Minutes: Today's Evaluation/Treatment Evaluation Self care/home management: 15 minutes Total for time-based codes: 15 minutes Total treatment time: 32 minutes Evaluation Complexity PMH/Comorbidities that affect Occupational Performance: See PMHx Occupational Profile/Medical and Therapy History: LOW - Brief history relating to presenting problem Patient Assessment: LOW - 1-3 performance deficits relating to physical, cognitive, psychosocial limitations/restrictions Clinical Decision Making: LOW - Low complexity, limited amount of treatment options, no assessment modification, no comorbidities Evaluation Complexity: Low Therapist Alpha Pager Number: [phone] ase Kamran - Vanessa Lee LSW - 04/29/2021 1:31 PM CDT CASE MANAGEMENT / SOCIAL SERVICE TRANSITION PLAN - PROGRESS NOTE PLAN: Awaiting Medical Doctor Recommendations for Transition Will Continue to Follow for Support and Progression Towards Final Transition Plan BARRIERS TO TRANSITION: Awaiting Collateral Information Awaiting Therapy Recommendations Discharge Needs to be Determined Medical barriers:medical stability; tele, IV abx DOES ACCEPTING FACILITY REQUIRE COVID TESTING BEFORE DISCHARGE: Other: TBD - Patient is not COVID vaccinated COMMENTS / PATIENT AND FAMILY RESPONSE TO PLAN: Chart review completed. PT: Recommending low-intensity setting Pt has been profiled via larae to [place] (surrounding area) and area Bed offers right now are not until next week, will review with pt Will continue to follow, await treatment team recommendations and provide discharge options as appropriate. IS PATIENT'S ADMISSION ASSOCIATED WITH TIA, ISCHEMIC, OR HEMORRHAGIC STROKE?: No PATIENT / SUBSTITUTE DECISION MAKER GOAL UPON TRANSITION: First Choice: [facility] Swing Bed Transitional Care ANTICIPATED NEEDS UPON TRANSITION: [facility] Swing Bed Transitional Care RESOURCE(S) PROVIDED: Placement VERIFIED CORRECT PHARMACY IS ENTERED FOR DISCHARGE: Yes - Pharmacy: TBD TRANSITION ROUNDING COMPLETED WITH THE FOLLOWING: Patient / family Visual Associate SIGNED: ROSA Ny [employer] Case Management [facility]--[place]as, POONAM P) [phone] hysical Therapy - Black Shetty PT - 04/29/2021 11:15 AM CDT Physical Therapy Acute Inpatient Treatment Note ASSESSMENT/RECOMMENDATIONS Pt is presenting with impaired gait and decreased activity tolerance. Pt is currently needing assist of 1 for short bouts of activity. Would recommend d/c to a low intensity post acute PT setting upon d/c from the hospital. 6-Clicks Basic Mobility Score: 15 Activity Prescription with Nursing: With assist of 1, walk in room and progressively increase to out in the suarez 3 times per day. At a minimum, up to chair for all meals or 3 times per day. Encourage patient to perform personal cares at sink when able. Encourage walking to bathroom rather than use commode or bedpan. SUBJECTIVE Pt is sitting in a chair and is agreeable to PT. Pt denies any pain at rest. OBJECTIVE Bed Mobility: Not performed. Transfers: Sit to/from stand with Contact guard assist w/ a front-wheeled walker. Pt needs extra time to come to a stand. Gait: Contact guard assist w/ a front-wheeled walker x~30'. Pt's gait is slow/shuffled and with decreased toe clearance when stepping. Pt progressively became more flexed at her trunk while ambulating. Response to Activity: Modified Shanell RPE: moderate-hard Vitals: attempted to collect, however, the probe was unable to read her finger. Other: Pt left sitting up in a chair w/ a call light in reach. Patient Education: Patient was educated on goals of PT session, daily activity recommendations, BORGRPE scale and pursed lip breathing today through explanation. They accepted teaching and verbalized understanding. Interdisciplinary Communication: Spoke with interdisciplinary team members regarding patient plan ofcare. PLAN Continue plan of care. Today's Treatment: Gait Trainin minutes Therapeutic Exercise: 0 minutes Therapeutic Activity: 25 minutes TOTAL TIMED CODES: 25 minutes TREATMENT TOTAL TIME: 25 minutes Black Shetty PT, DPT Pager [phone] linical Team - Ivy Gutierrez, CARMEN - 04/29/2021 7:41 AM CDT [id number] A/Ox4. VSS on RA. Up A1-2 with gb and fww. Pt denies chest pain, SOB, n/v. Pt voiding well. Pt reports leg pain overnight, managed with PRN pain meds, see MAR. Continuing to monitor. are Planning - Ivy Gutierrez RN - 04/29/2021 6:50 AM CDT Problem: RISK FOR FALLS Goal: FALL PREVENTION BEHAVIOR Description: DEFINITION: Personal or family care rep actions to minimize risk factors that might precipitate falls in the personal environment. 1=Never demonstrated, 2=Rarely demonstrated, 3=Sometimes demonstrated, 4=Often demonstrated, 5=Consistently demonstrated. Outcome: NOC Rating 3 Flowsheets (Taken 04/29/2021 022) Plan of care reviewed with: Patient Patient specific goal for the day: Pt will notify nurse if assistance is needed, remain free of fall/injury Patient specific goal for the stay: Remain free of falls/injury Achieve goal for stay: By discharge Patient Progress: A/Ox4. Up A1-2 with gb and fww. Pt calls appropriately. Bed alarm in place for safety. Continuing to monitor. linical Team - Ashley Mcbride RN - 04/28/2021 6:27 PM CDT Shift Summary [id number] VSS on RA. Aox4, intermittently confused but easily redirected. Ax1 w/ BG & FWW. Up to chair majority of shift. Ambulating to and from bathroom. Tele: Afib 80's. Up to 120's when up walking. Voiding well. 1 BM this shift. SCD's on while in bed. C/o bilateral leg pain, worse on L side. Declined offer for PRN tylenol. IV antibiotic given, see MAR. hysical Therapy - Evie Nancy R, PT - 04/28/2021 12:10 PM CDT Physical Therapy Acute Inpatient Initial Evaluation ASSESSMENT/RECOMMENDATIONS Will recommend low intensity setting, transfers with moderate assistance with her legs in and out ofbed, sit to stand with minimal assist. Walks 25 feet with FWW and minimal assist,tires easily, slow steps, shuffles feet, knee arthritic and back of left buttock and thigh sore. 6-Clicks Basic Mobility Score: 15 Activity Prescription with Nursing: At a minimum, up to chair for all meals or 3 times per day. Assist patient to complete exercises 10 times, 3 times per day. Sit to stands and in standing: leg lifts out to the side, marching, air boxing. Encourage patient to perform personal cares at sink when able. Encourage walking to bathroom rather than use commode or bedpan. Diagnosis: atrial fibrillation, bladder infection Prescription: Eval and Treat Current medical status: getting stronger, feels good to be out of bed Precautions: tires easily SUBJECTIVE Social History: Patient lives: alone, her son is next door, her daughter is 4 hours away but is home often and cooks and freezes meals for her. Home environment: split level home, 3 levels Steps: 7 to get to each of the 3 levels in her home. Employment: retired Prior Level of Function: Activities of Daily Living: independent with personal cares, had help with meals, does not drive. Mobility: independent History of falls: yes, fell on 04/26 landed on her buttock, with the help of her son couldn't get up, bumped up on her buttocks up to the bedroom level, crawled the her bed. Sunday morning her son and his cousin got her into a car and brought her to the ER. Home O2: none Adaptive equipment available: has 2 FWW and a 4WW. One walker on each level. Patient Concerns: Has been getting weak the last few days, her left leg and been painful the last few days, (posterior left leg), making it difficult to walk, and to transition in and out of bed and sit to stand. Patient/Family Goals: home when medically ready, low intensity setting if needed. OBJECTIVE Patient seen at bedside. Patient presents with atrial fibrilation, says her knees are arthritic and she is having pain in herleft posterior thigh and buttock. Cognition: normal Pain: 3/10 Posture: very stooped in standing Observation: sitting in chair beside bed. Range of Motion: Bilateral lower extremities within functional limits Refer to Occupational Therapy report for upper extremity range of motion. Strength: Bilateral lower extremities within functional limits Refer to Occupational Therapy report for upper extremity strength testing. Sensation: WFL Tone: WFL Coordination: WFL Bed Mobility: Supine to Sit: with moderate assist Sit to Supine: with moderate assist, help lifting her legs into the bed. Transfers: Sit to/from Stand: with minimal assist. Balance: Static Sitting Balance: good at edge of the bed, in chair and on toilet. Gait: ambulates 25 feet with FWW, slowly, shuffles feet. After resting walked to the bed to get in and out of bed, after resting walked from the bed to the bathroom 5 feet and then 15 additional feet to get back to the chair beside the bed. Stairs: not attempted, has 3 levels at home, 7-8 steps between levels with railings, 2-3 steps withrailing to get into her home. Lives in [place], [place] Education: Patient was educated on importance of being out of bed, walking with staff as able today through explanation. They accepted teaching and verbalized understanding. Interdisciplinary Communication: Spoke with interdisciplinary team members regarding patient plan ofcare. Today's Treatment Evaluation: Completed Gait trainin minutes Therapeutic exercise: 0 minutes Therapeutic activity: 5 minutes TOTAL TIME-CODED MINUTES: 30 minutes TOTAL TREATMENT TIME: 45 minutes Treatment provided: evaluation, gait, therapeutic activity GOALS Goals to be achieved by discharge. Patient will be aware of equipment recommendations as indicated in note to allow for safe mobility. Patient will transfer sit to/from supine with SBA assistance. Patient will transfer from sit to/from stand with SBA assistance and equipment as needed to progressto safe household mobility. Patient will be able to ambulate 100 feet using FWW with CGA assistance to progress to safe functional mobility in the home. Patient will be able to negotiate 7 stairs with rail in with Safest pattern with minimal assistanceto progress to safe functional mobility in the home. Patient and/or caregiver will be independent with performance and progression of home exercise program for continued management of symptoms. Patient will demonstrate adequate awareness of fall prevention tactics to reduce risk of falling. PLAN Will continue 5 times per week. Physical Therapy Services: balance training bed mobility training gait training therapeutic activity therapeutic exercise transfer training Nancy Case PT are Planning - Ashley Mcbride RN - 04/28/2021 12:02 PM CDT Problem: RISK FOR FALLS Goal: FALL PREVENTION BEHAVIOR Description: DEFINITION: Personal or family care rep actions to minimize risk factors that might precipitate falls in the personal environment. 1=Never demonstrated, 2=Rarely demonstrated, 3=Sometimes demonstrated, 4=Often demonstrated, 5=Consistently demonstrated. Outcome: NOC Rating 3 Flowsheets (Taken 04/28/2021 1201) Initial Score: 3 Target Score: 4 Plan of care reviewed with: Patient Patient specific goal for the day: Remain free from falls by calling for assistance prior to gettingout of bed/chair Patient specific goal for the stay: Remain free from falls Achieve goal for stay: By discharge Patient Progress: Pt is assist of 1-2 w/ BG & FWW d/t weakness in lower extremities and falls prior to admission. Pt calls appropriately. NETCargelia Andrew - Vanessa Lee LSW - 04/28/2021 11:29 AM CDT CASE MANAGEMENT / SOCIAL SERVICE TRANSITION PLAN - INITIAL ASSESSMENT PLAN: Awaiting Medical Doctor Recommendations for Transition Will Continue to Follow for Support and Progression Towards Final Transition Plan BARRIERS TO TRANSITION: Medical barriers:medical stability, tele, IVF, pain control Awaiting therapy recommendation Awaiting collateral information Discharge needs to be determined COMMENTS / PATIENT AND FAMILY RESPONSE TO PLAN: Reviewed patient medical record, Met with patient at bedside this day in order to discuss discharge planning. Introduced self and case management role. Patient currently lives in her own home in [place], [place]. Son and [id number] live next door and assist as needed. 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 Son provides transportation as needed. She receives MOW's daily and daughter comes once a month and cooks meals forher in which she freezes for easy heat up in the microwave. She utilizes a walker for DME. Patientsgoal upon d/c will be to return home. However, states she is agreeable to low-intensity setting if recommended. Preference is for [place] or area. Will continue to follow, await treatment team recommendations and provide discharge options as appropriate. ADMISSION DX: No dx indicated for this encounter PATIENT STATUS: OP in a bed SOURCES OF INFORMATION (See demographics for contact information): Medical Doctor Medical Record Patient CURRENT LIVING SITUATION / LEVEL OF ASSISTANCE: Lives alone Requires Some Assistance Son and daughter in law live next door and assist as needed COMMUNITY SERVICES: [id number] RELEASE OF INFORMATION: Yes -- verbal for: discharge planning HEALTHCARE DIRECTIVE: Yes-On File and reviewed POWER OF EQUIPMENT MANAGER: Healthcare Power of Booth Cleaner FINANCIAL CONCERNS: No Concerns PRIMARY CARE PHYSICIAN: Yes : No LANGUAGE / COMMUNICATION BARRIERS: No PATIENT / SUBSTITUTE DECISION MAKER GOAL UPON TRANSITION: First Choice: Home: Family/Friend Support Second Choice: Home Health: Bath [facility], Home Safety Evaluation, Nurse, Occupational Therapy and Physical Therapy ANTICIPATED NEEDS UPON TRANSITION: Home Health: Bath [facility], Home Safety Evaluation, Nurse, Occupational Therapy and Physical Therapy Home: Family/Friend Support Transitional Care RESOURCE(S) PROVIDED: nothing needed at this time ANTICIPATED MODE OF TRANSPORT UPON DISCHARGE: Family Car VERIFIED CORRECT PHARMACY IS ENTERED FOR DISCHARGE: No To be determined upon discharge SIGNED: ROSA Ny Dean Of [employer] Case Management [facility], [place] P) [phone] linical Team - Ivy Gutierrez RN - 04/28/2021 6:57 AM CDT [id number] A/Ox4. VSS on RA. Pt denies chest pain, SOB. Tele Afib. Up A2 with gb and fww. Pt reports leg pain during shift, managed with PRN pain meds, see MAR. Will continue to monitor. IVF infusing at 75 ml/hr. Cedric Posada - Ivy Gutierrez RN - 04/28/2021 6:10 AM CDT Problem: RISK FOR FALLS Goal: FALL PREVENTION BEHAVIOR Description: DEFINITION: Personal or family care rep actions to minimize risk factors that might precipitate falls in the personal environment. 1=Never demonstrated, 2=Rarely demonstrated, 3=Sometimes demonstrated, 4=Often demonstrated, 5=Consistently demonstrated. Outcome: NOC Rating 4 Flowsheets (Taken 04/28/2021 0243) Initial Score: 3 Target Score: 5 Plan of care reviewed with: Patient Patient specific goal for the day: Pt will notify nurse if assistance is needed, remain free of fall/injury Patient specific goal for the stay: Remain free of fall/injury Achieve goal for stay: By discharge Patient Progress: A/Ox4. Up A2 with gb and fww. Bed alarm in place for safety, using call light appropriately. Continuing to monitor. NETCare Planning - Emilee Lagos RN - 04/27/2021 6:28 PM CDT Problem: RISK FOR FALLS Goal: FALL PREVENTION BEHAVIOR Description: DEFINITION: Personal or family care rep actions to minimize risk factors that might precipitate falls in the personal environment. 1=Never demonstrated, 2=Rarely demonstrated, 3=Sometimes demonstrated, 4=Often demonstrated, 5=Consistently demonstrated. Outcome: NOC Rating 3 Flowsheets (Taken 04/27/2021 1657) Plan of care reviewed with: Patient Patient specific goal for the day: no falls this shift Patient specific goal for the stay: no falls during this hospital stay Achieve goal for stay: By discharge Patient Progress: VSS on RA. Alert and oriented x4.Up with 2 GB FWW. Bed alarm in place, calling appropriately. Clinical Team - Emilee Lagos RN - 04/27/2021 6:14 PM CDT Upon Admission to [facility], skin assessment completed with CARMEN Willett Upon skin assessment including pressure points findings include: blanchable redness to the coccyx and heels , bruise on the left arm no other skin issues noted. Plan/Intervention turn and repo q2, encourage activity linical Team - Emilee Lagos RN - 04/27/2021 4:57 PM CDT Verified the following with Evan White RN (First Initial, Last Name, Title) Code status order: DNR Patient understands and agrees Code status band applied D Case Mgmt - Elsy Parks LSW - 04/27/2021 12:16 PM CDT CASE MANAGEMENT PROGRESS NOTE PLAN: ED Dean Of Students spoke with Patient at bedside and explained role. EDSW spoke with Patient about what she is hoping for and how we can help her. Patient stated she was feeling weak and doesn't know why her knee gave out. Patient says she does doexercises at home she used to do with Home Health. Patient gave details on exercises. Patient said ideally she would like to stay in the hospital overnight as she is worried for today. Patient does not want to go to a rehab facility or half-way. Patient wants to go home, ultimately,but is "hoping to stay for a day or two." Patient said her son lives next door and can help her. Some more labs are being run again before definite decision is made on Patient care and discharge. SIGNED: ROSA [place] ED Case Management [facility] documented in this encounter Plan of Treatment Date Type Specialty Care Team Description 08/22/2021 Office Visit Rheumatology William Harding PA-C [address] [place] [address] [phone] Name Type Priority Associated Diagnoses Date/Ti me CULTURE, BLOOD MICROBIOLOGY REPORT Routine 2020 9:23 AM CDT CULTURE, BLOOD MICROBIOLOGY REPORT Routine 2020 9:17 AM CDT documented as of this encounter Implants Implanted Type Area Fitter Machinist Device Shelf Model / Serial Identifier Expiration / Lot Date Stnt Resolute Jassi [id number] (Aka Ronyx [id number])-08/27/2018 [employer] 11/17/2019 [id number] / Implanted: 08/27/2018 by Brandon Candelaria DO (Quantity not on file) / [id number] Thv Violet 3 23mm N [id number]-7/5/2019 HE ART PRESSLEY [id number] / Implanted: Qty: 1 on 10/08/2018 by Brandon Candelaria DO [employer] [id number] / documented as of this encounter Procedures Procedure Name Priority Date/Time Associated Comments Diagnosis SARS-COV-2, INFLUENZA STAT 05/02/2021 11:08 Re sults for this A+B, AND/OR RSV AM CDT procedure ar e in NUCLEIC ACID TESTING the res ults PANEL section. LAB ONLY-COMPLETE Routine 05/02/2021 8:06 Result s for this BLOOD COUNT WITH AM CDT procedure a re in DIFFERENTIAL the results section. BASIC METABOLIC PANEL Routine 05/02/2021 8:06 Re sults for this AM CDT procedure are i n the results section. LAB ONLY-COMPLETE Routine 05/02/2021 8:06 Result s for this BLOOD COUNT WITH AM CDT procedure a re in DIFFERENTIAL the results section. CULTURE, BLOOD Routine 04/29/2021 9:23 AM CDT CULTURE, BLOOD Routine 04/29/2021 9:17 AM CDT LAB ONLY-COMPLETE Routine 04/28/2021 7:02 Result s for this BLOOD COUNT WITH AM CDT procedure a re in DIFFERENTIAL the results section. BASIC METABOLIC PANEL Routine 04/28/2021 7:02 Re sults for this AM CDT procedure are i n the results section. LAB ONLY-COMPLETE Routine 04/28/2021 7:02 Result s for this BLOOD COUNT WITH AM CDT procedure a re in DIFFERENTIAL the results section. ECHO ADULT COMPLETE Routine 04/27/2021 4:28 Resu lts for this PM CDT procedure are i n the results section. TSH REFLEX STAT 04/27/2021 4:25 Results for this PM CDT procedure are i n the results section. TROPONIN I STAT 04/27/2021 4:25 Results for this PM CDT procedure are i n the results section. TROPONIN I STAT 04/27/2021 12:04 Results for this PM CDT procedure are i n the results section. LAB ONLY-URINE STAT 04/27/2021 11:45 Results f or this MICROSCOPIC REFLEX AM CDT procedure are in the results section. URINE DIP, REFLEX TO STAT 04/27/2021 11:45 Res ults for this MICROSCOPIC, REFLEX TO AM CDT proce dure are in CULTURE the results section. CULTURE BACTERIAL, STAT 04/27/2021 11:45 Resul ts for this URINE AM CDT procedure are i n the results section. EKG STAT 04/27/2021 10:16 Results for this AM CDT procedure are i n the results section. XRAY KNEE 3 VIEWS LT KLEVER 04/27/2021 10:06 Res ults for this AM CDT procedure are i n the results section. XRAY KNEE 3 VIEWS RT KLEVER 04/27/2021 10:06 Res ults for this AM CDT procedure are i n the results section. XRAY HIP MIN 2 VIEWS KLEVER 04/27/2021 9:51 Res ults for this LT AM CDT procedure are i n the results section. LAB ONLY-COMPLETE STAT 04/27/2021 9:14 Result s for this BLOOD COUNT WITH AM CDT procedure a re in DIFFERENTIAL the results section. TROPONIN I STAT 04/27/2021 9:14 Results for this AM CDT procedure are i n the results section. MAGNESIUM STAT 04/27/2021 9:14 Results for this AM CDT procedure are i n the results section. COMPREHENSIVE STAT 04/27/2021 9:14 Results fo r this METABOLIC PANEL AM CDT procedure ar e in the results section. LAB ONLY-COMPLETE STAT 04/27/2021 9:14 Result s for this BLOOD COUNT WITH AM CDT procedure a re in DIFFERENTIAL the results section. documented in this encounter Results SARS-COV-2, INFLUENZA A+B, AND/OR RSV NUCLEIC ACID TESTING PANEL (05/02/2021 11:08 AM CDT) Pathologist Sig nature SARS-CoV-2 Not Detected Not Detected [address] Specimen Respiratory - Nasopharyngeal swab (speci men) Narrative Performed At Please read entire report. Results for Influenza A and B or RSV [address] may also be available depending on which viruses your provider selected for testing. Your Covid-19 test is negative: 1)Avoiding close contact is s till recommended. 2)Cover your coughs and snee zes. 3)Wash your hands often with soap and wate r for at least 20 seconds or use an alcohol-based vocal music instructor con taining over 60% alcohol. Avoid touching your fa ce. 4)Avoid sharing personal household items, including dishes, cups, utensils, towels, clothing, or bedding. These items should be cleaned thoroughly with soap and water after use. Clean all "high touch" surfaces in your home d aily. 5) Monitor your symptoms. Contact your provider if you are feeling worse. If you have shortness of breath or diff iculty breathing, call 911. This assay is for in vitro diagnostic use under FDA Em ergency Use Authorization only. Optimal performance of this test requires appropriate specimen collection, storage, and transport to [facility] test site. Detection of SARS-CoV-2 RNA may be affected by sample collection methods, patient factors (eg, presence of symptoms), a nd/or stage of infection. False-negative results may arise from degradation of v iral RNA during shipping/storage. Results should be interpreted by a trained professiona l in conjunction with the patient s history and clinical signs and symptoms, and epidemi ological risk factors. Negative (Not Detected) results do not preclude infect ion with the SARS-CoV-2 virus and should not be the sole basis of patient treatment/management or public health decision. Follow up testing should be performed according to the current CDC recom mendations. This test was performed by polymerase chain reaction ( PCR) on the GeneXpert instrument. Performing Organization Address City/State/ZIP Code Phon e Number [address] [place] [address] LAB ONLY-COMPLETE BLOOD COUNT WITH DIFFERENTIAL (05/02/2021 8:06 AM CDT) Pathologist [facility] WBC 6.9 4.0 - 11.0 K/uL [address] RBC 3.29 (L) 3.80 - 5.[address] M/uL Hemoglobin 9.7 (L) 11.5 - 15.[address] g/dL Hematocrit 30.6 (L) 35.0 - 45.0 % [address] MCV 93.0 80.0 - 98.[address] MCH 29.5 25.5 - 34.[address] MCHC 31.7 31.5 - 36.[address] g/dL RDW-CV 14.4 11.5 - 15.5 % [address] RDW-SD 49.4 35.5 - 50.[address] Platelet Count 217 140 - 400 K/uL [address] MPV 9.2 8.5 - 12.[address] Seg Neut Absolute 4.1 1.8 - 8.0 K/uL [address] Lymphocytes Absolute 1.7 0.8 - 4.1 K/uL [place] [address] [facility] Monocytes Absolute 0.5 0.0 - 1.0 K/uL [address] Eosinophils Absolute 0.6 0.0 - 0.7 K/uL [place] [address] [facility] Basophil Absolute 0.1 0.0 - 0.2 K/uL [address] Immature Granulocyte 0.02 0.00 - 0.[address] Absolute K/uL Neutrophils Abs. 4,100 /uL [address] (Segs and Bands) Neutrophils Percent 59.7 % [address] Lymphocytes Percent 24.2 % [address] Monocytes Percent 6.8 % [address] Immature Granulocyte 0.3 % [address] Percent Eosinophils Percent 8.1 % [address] Basophil Percent 0.9 % [address] Nucleated RBC 0 /[address] Specimen Blood - Blood specimen (specimen) Performing Organization Address City/State/ZIP Code Phon e Number [address] [place] [id number] BASIC METABOLIC PANEL (05/02/2021 8:06 AM CDT) Pathologist Sig [facility] Glucose 87 70 - 100 mg/dL [address] BUN 26 (H) 6 - 22 mg/dL [address] Creatinine 0.95 0.60 - 1.[address] mg/dL BUN/Creatinine Ratio 27.4 (H) 10.0 - 25.[address] Sodium 140 135 - 145 meq/L [address] Potassium 3.7 3.5 - 5.3 meq/L [address] Chloride 108 99 - 110 meq/L [address] CO2 25 20 - 29 meq/L [address] Anion Gap with K 11 6 - 20 meq/L [address] Calcium 8.6 8.5 - 10.[address] mg/dL Age [address] eGFR Non- 56 (L) >=[address] Guyanese mL/min/1.73m2 eGFR 67 >=[address] mL/min/1.73m2 Specimen Blood - Blood specimen (specimen) Performing Organization Address City/State/ZIP Code Phon e Number [address] [place] [address] LAB ONLY-COMPLETE BLOOD COUNT WITH DIFFERENTIAL (04/28/2021 7:02 AM CDT) Pathologist Sig [facility] WBC 9.3 4.0 - 11.0 K/uL [address] RBC 3.38 (L) 3.80 - 5.[address] M/uL Hemoglobin 10.0 (L) 11.5 - 15.[address] g/dL Hematocrit 31.7 (L) 35.0 - 45.0 % [address] MCV 93.8 80.0 - 98.[address] MCH 29.6 25.5 - 34.[address] MCHC 31.5 31.5 - 36.[address] g/dL RDW-CV 14.6 11.5 - 15.5 % [address] RDW-SD 50.4 (H) 35.5 - 50.[address] Platelet Count 203 140 - 400 K/uL [address] MPV 8.9 8.5 - 12.[address] Seg Neut Absolute 6.6 1.8 - 8.0 K/uL [address] Lymphocytes Absolute 1.9 0.8 - 4.1 K/uL [place] [address] [facility] Monocytes Absolute 0.6 0.0 - 1.0 K/uL [place] [address] [facility] Eosinophils Absolute 0.1 0.0 - 0.7 K/uL [place] [address] [facility] C Basophil Absolute 0.1 0.0 - 0.2 K/uL [address] Immature Granulocyte 0.05 0.00 - 0.[address] Absolute K/uL Neutrophils Abs. 6,600 /uL [address] (Segs and Bands) Neutrophils Percent 71.0 % [address] Lymphocytes Percent 20.5 % [address] Monocytes Percent 5.9 % [address] Immature Granulocyte 0.5 % [address] Percent Eosinophils Percent 1.5 % [address] Basophil Percent 0.6 % [address] Nucleated RBC 0 /[address] Specimen Blood - Blood specimen (specimen) Performing Organization Address City/State/ZIP Code Phon e Number [address], [place] [address] BASIC METABOLIC PANEL (04/28/2021 7:02 AM CDT) Pathologist [facility] nature Glucose 91 70 - 100 mg/dL [address] BUN 16 6 - 22 mg/dL [address] Creatinine 0.84 0.60 - 1.[address] mg/dL BUN/Creatinine Ratio 19.0 10.0 - 25.[address] Sodium 141 135 - 145 meq/L [address] Potassium 4.3 3.5 - 5.3 meq/L [address] Chloride 112 (H) 99 - 110 meq/L [place] [address] [facility] CO2 21 20 - 29 meq/L [place] [address] [facility] Anion Gap with K 12 6 - 20 meq/L [address] Calcium 8.6 8.5 - 10.5 mg/dL [address] Age 85 [address] eGFR Non- 64 >=[address] Guyanese mL/min/1.73m2 eGFR 78 >=[address] mL/min/1.73m2 Specimen Blood - Blood specimen (specimen) Performing Organization Address City/State/ZIP Code Phon e Number [address] [place] [address] ECHO ADULT COMPLETE (04/27/2021 4:28 PM CDT) Specimen Narrative Performed At This result has an attachment that is no t available. [facility] Patient: BAIRON ONOFRE MR#: [id number] Exam Date: 04/27/2021 Transthoracic Echocardiogram [facility] [address] [place] [address] BP: 148/82 mmHg HR: 102 bpm : 1935 Exam Location: Bedside Height: 64.17 "(163.0 cm) Age: 85 year(s) Patient Room: [facility] Weight: 157.63 lbs.(71.50 kg) Gender: Female Patient Status: Inpatient BSA: 1.77 m2 [employer] Driver: ALISHA PEREZ RDCS(,FE) Reading Physician: RITO BOSWELL MD F ACC Ordering Physician: LENORA STALLWORTH DO Procedure Indication(s): Atrial fibri llation Examination: TTE Complete 2D(m-mode), Complete Spectral Doppler, Color Doppler Clinical History Proir Valve Surgery Date: 10/08/2018 Proir Valve Surgery Type: Transcatheter Aortic Valve Replacement Conclusions Left Ventricle: Normal left ventricular size. Hyperdynam ic left ventricular systolic function. The ejection fraction is visually estimated to be 75 %. There are no left ventricular regional wall motion abnormalities. Left Atrium: Markedly dilated left atrium by v isual assessment. Aortic Valve: 23 mm Pressley VIOLET 3 aortic bioprosthe sis is present. No significant aortic transvalvular regurgitation. Mitral Valve: Mild mitral regurgitation. Right Ventricle: Low normal right ventricular systolic fu nction. Pulmonary artery systolic pressure is measured at 57 mmHg. Pulmonary Artery: Moderate pulmonary artery hypertension. Right Atrium: Normal right atrial size. Tricuspid Valve: Wfnr-hq-dmohqgpj tricuspid regurgitation. Pulmonic Valve: Voud-gf-ewrwuxkh pulmonary regurgitation. Comparison Study Comparison Date: 03/17/2021 Comparison Study: Transthoracic Echocardiogram RV function has worsened, Pulmonary kelli ry pressure has increased, Tricuspid regurgitation has worsened Findings Left Ventricle: Normal left ventricular size. Normal lef t ventricular wall thickness. Hyperdynamic left ventricular systolic function. The ejection fraction is visually estimated to be 75 %. There are no left ventricular regional wall motion abnormalities. Unable to assess left ventricular diastolic function due to abnormal rhythm. Left Atrium: Markedly dilated left atrium by v isual assessment. Aortic Valve: A(n) 23 mm Pressley VIOLET 3 aortic biopr osthesis is present. No prosthetic aortic valve stenosis. No significant aortic transvalvular regurgitation. No signific ant aortic perivalvular regurgitation. Aortic valve mean gradient is 9 mmHg. Aortic valve acceleration time is 84 ms. Aorta: The ascending aorta is normal in size measuring 32.0 m m. Mitral Valve: Mild mitral leaflet thickening. Moderate mitral leaflet calcification. There is restricted mobility of both the anterior and posterior mitral leaflets. There is mild mitral an nular calcification. Mild mitral regurgitation. Dvnm-iw-jbxhnnwd mitral stenosis. Mitral valve mean gradient is 6 mmHg. IAS: The atrial septum is thickened. No evide nce of an atrial shunt by color Doppler. Right Ventricle: Normal right ventricular size. Low kai l right ventricular systolic function. Normal right ventricular wall thickness. Pulmonary artery systolic pressure is measured at 57 mmHg. TAPSE measures 14 mm. The right ventricular myocardial performance index is 0.5. Tricuspid valve lateral an nulus peak systolic velocity is 9.9 cm/sec. Pulmonary Artery: Moderate pulmonary artery hypertension. Right Atrium: Normal right atrial size. Tricuspid Valve: Normal tricuspid valve structure. Zzoi-hk-izplucws tri cuspid regurgitation. Pulmonic Valve: Normal pulmonary valve structure. Mild-t o-moderate pulmonary regurgitation. No pulmonary stenosis. The mean pulmonic valve acceleration time is 61 ms. IVC: Normal IVC size with minimal respirophasic changes. Pericardium: No significant pericardial effusion. There is pericard ial fat. Measurements Left Ventricle Aortic Valve Label Value Normal Value Label Value Normal Value LVDd, 2D 36.6 mm AV Vmax 188 cm/s LVDs, 2D 23.1 mm LVOTd 19 mm IVSd, 2D 7.4 mm AV Vmean 148 cm/s LVPWd, 2D 8.5 mm AV VTI 35 cm FS, 2D 36.89 % AV PGmax 14 mmHg LVEDV, 2D 57 ml AV Vmax, Caliper 188 cm/s LVESV, 2D 18 ml AV PGmean 9 mmHg LVEDVI, 2D 32.2 ml/m 2 Mitral Valve LVESVI, 2D 10.2 ml/m 2 Label Value Normal Value Right Ventricle MV VTI 40.1 cm Label Value Normal Value MV PGmax 13 mmHg TAPSE 14 mm MV PGmean 6 mmHg RIMP 0.5 Tricuspid Valve S' Tissue Doppler 9.9 cm/sec Label Value Normal Value Left Atrium TR Vmax 349 cm/s Label Value Normal Value TR Pmax 49 mmHg LADs Long. 61 mm RA Pressure 8 mmHg LA Volume Index 37.8 ml/m-sq RVSP 57 mmHg Aorta Pulmonic Valve Label Value Normal Value Label Value Normal Value Ao Asc 32 mm PV Vmax 100 cm/s Heart Rate PV PGmax 4 mmHg Label Value Norm al Value Heart Rate 102 bpm Electronically signed by RITO BOSWELL MD [facility] on 04/07 at 05:08 PM Procedure Note Interface, Inc Results No Pull Forward - 04/27/2021 5:09 PM CDT Patient: BAIRON ONOFRE MR#: [id number] Exam Date: 04/27/2021 Transthoracic Echocardiogram [facility] [address] [place] [address] BP: 148/82 mmHg HR: 102 bpm : 1935 Exa m Location: Bedside Height: 64.17 "(163.0 cm) Age: 85 year(s) Pat ient Room: [facility] Weight: 157.63 lbs.(71.50 kg) Gender: Female Pat ient Status: Inpatient BSA: 1.77 m2 [employer] Driver: ALISHA WOLFE RDCS(PE,FE) Reading Physician: RITO DESAI MD [facility] Ordering Physician: LENORA DIANE DO Procedure Indication(s): Atrial fibrillation Examination: TTE Com plete 2D(m-mode), Complete Spectral Doppler, Color Doppler Clinical History Proir Valve Surgery Date: 10/08/2018 Proir Valve Surgery Type: Transcatheter Aortic Valve Replacement Conclusions Left Ventricle: Normal left ventricular size. Hyperdynam ic left ventricular systolic function. The ejection fraction is visually estimated to be 75 %. There are no left ventricular regiona l wall motion abnormalities. Left Atrium: Markedly dilated left atrium by v isual assessment. Aortic Valve: 23 mm Pressley VIOLET 3 aortic bioprosthe sis is present. No significant aortic transvalvular regurgitation. Mitral Valve: Mild mitral regurgitation. Right Ventricle: Low normal right ventricular systolic fu nction. Pulmonary artery systolic pressure is measured at 57 mmHg. Pulmonary Artery: Moderate pulmonary artery hypertension. Right Atrium: Normal right atrial size. Tricuspid Valve: Bkkd-ni-eitaqkhe tricuspid regurgitation . Pulmonic Valve: Jtfr-jy-mdtondis pulmonary regurgitation . Comparison Study Comparison Date: 03/17/2021 Comparison Study: Transthoracic Echocard iogram RV function has worsened, Pulmonary kelli ry pressure has increased, Tricuspid regurgitation has worsened Findings Left Ventricle: Normal left ventricular size. Normal lef t ventricular wall thickness. Hyperdynamic left ventricular systolic function. The ejection fraction is visually estimated to be 75 %. There are no left ventricular regional wall motion abnormalities. Unable to assess left ventricular diastolic function due to ab normal rhythm. Left Atrium: Markedly dilated left atrium by v isual assessment. Aortic Valve: A(n) 23 mm Pressley VIOLET 3 aortic biopr osthesis is present. No prosthetic aortic valve stenosis. No significant aortic transvalvular regurgitation. No signific ant aortic perivalvular regurgitation. Aortic valve mean gradient is 9 mmHg. Aortic valve acceleration time is 84 ms. Aorta: The ascending aorta is normal in size me asuring 32.0 mm. Mitral Valve: Mild mitral leaflet thickening. Moderate mitral leaflet calcification. There is restricted mobility of both the anterior and posterior mitral leaflets. There is mild mitral an nular calcification. Mild mitral regurgitation. Ndos-xi-hxktkcly mitral stenosis. Mitral valve mean gradient is 6 mmHg. IAS: The atrial septum is thickened. No evide nce of an atrial shunt by color Doppler. Right Ventricle: Normal right ventricular size. Low kai l right ventricular systolic function. Normal right ventricular wall thickness. Pulmonary artery systolic pressure is measured at 57 mmHg. TAPSE measures 14 mm. The right ventricular myocardial performance index is 0.5. Tricuspid valve lateral an nulus peak systolic velocity is 9.9 cm/sec. Pulmonary Artery: Moderate pulmonary artery hypertension. Right Atrium: Normal right atrial size. Tricuspid Valve: Normal tricuspid valve structure. Mild-t o-moderate tricuspid regurgitation. Pulmonic Valve: Normal pulmonary valve structure. Mild-t o-moderate pulmonary regurgitation. No pulmonary stenosis. The mean pulmonic valve acceleration time is 61 ms. IVC: Normal IVC size with minimal respirophas ic changes. Pericardium: No significant pericardial effusion. The re is pericardial fat. Measurements Left Ventricle Aortic Valve Label Value Nor mal Value Label Value Normal Value LVDd, 2D 36.6 mm AV Vmax 188 cm/s LVDs, 2D 23.1 mm LVOTd 19 mm IVSd, 2D 7.4 mm AV Vmean 148 cm/s LVPWd, 2D 8.5 mm AV VTI 35 cm FS, 2D 36.89 % AV PGmax 14 mmHg LVEDV, 2D 57 ml AV Vmax, Caliper 188 cm/s LVESV, 2D 18 ml AV PGmean 9 mmHg LVEDVI, 2D 32.2 ml/m2 Mitral Valve LVESVI, 2D 10.2 ml/m2 Label Value Normal Value Right Ventricle MV VTI 40.1 cm Label Value Nor mal Value MV PGmax 13 mmHg TAPSE 14 mm MV PGmean 6 mmHg RIMP 0.5 Tricuspid Va lve S' Tissue Doppler 9.9 cm/sec Label Value Normal Value Left Atrium TR Vmax 349 cm/s Label Value Nor mal Value TR Pmax 49 mmHg LADs Long. 61 mm RA Pressure 8 mmHg LA Volume Index 37.8 ml/m-sq RVSP 57 mmHg Aorta Pulmonic Valve Label Value Nor mal Value Label Value Normal Value Ao Asc 32 mm PV Vmax 100 cm/s Heart Rate PV PGmax 4 mmHg Label Value Nor mal Value Heart Rate 102 bpm Performing Organization Address City/State/ZIP Code Phon e Number [facility] F, [place] TROPONIN I (04/27/2021 4:25 PM CDT) Pathologist [facility] Troponin I 0.011 0.000 - 0.013 ng/mL [place] [address] [facility] Specimen Blood - Blood specimen (specimen) Performing Organization Address City/[facility]/ZIP Code Phon e Number [facility] [facility] [address] [place] [address] TSH REFLEX (04/27/2021 4:25 PM CDT) Pathologist Sig nature TSH 1.30 0.40 - 5.00 uIU/mL [address] Specimen Blood - Blood specimen (specimen) Performing Organization Address [facility] Phon e Number [facility] [address] [place] [address] TROPONIN I (04/27/2021 12:04 PM CDT) Pathologist Sig nature Troponin I 0.016 (H) 0.000 - 0.013 ng/mL [address] Specimen Blood - Blood specimen (specimen) Performing Organization Address [facility] Phon e Number [facility] [address] [place] [address] CULTURE BACTERIAL, URINE (04/27/2021 11:45 AM CDT) Culture Result >100,000 CFU/mL KALE BYRNES Klebsiella pneumoniae [facility] (!) Culture Result <10,000 CFU/mL Mixed [facility] microflora (!)Comment: [facility] No further identification or susceptibilities to follow. Specimen Urine - Urine specimen obtained by singl e catheterization of bladder (specimen) Organism Antibiotic Method Susceptibility Klebsiella pneumoniae Amoxicillin/clavulanate LIZ 4 ug/mL: Sensitive Klebsiella pneumoniae Cefazolin LIZ <=4 ug/mL: Sensitive Klebsiella pneumoniae Ceftriaxone LIZ <=1 ug/mL: Sensitive Klebsiella pneumoniae Ciprofloxacin LIZ <=0.25 ug/ mL: Sensitive Klebsiella pneumoniae Gentamicin LIZ <=1 ug/mL: Sensitive Klebsiella pneumoniae Nitrofurantoin LIZ 64 ug/mL: Intermediate Comment: Nitrofurantoin [facility] ld not be used for pyelonephritis due to low renal concentration. Klebsiella pneumoniae Tobramycin LIZ <=1 ug/mL: Sensitive Klebsiella pneumoniae Trimethoprim/Sulfamethoxazole LIZ <=20 ug/mL: Sensitive Comment: Cefazolin predicts susceptibili ty to oral agents cephalexin, cefdinir, cefpodoxime and cefuroxime when used for therapy of uncomplicated UTIs. Performing Organization Address [facility] Phon e Number [facility] [address] [place] [address] [address] LAB ONLY-URINE MICROSCOPIC REFLEX (04/27/2021 11:45 AM CDT) WBC Urine >50 /hpf (A) Negative, 0-5 [facility] /hpf [facility] RBC Urine 11-20 /hpf (A) Negative, 0-2 [facility] /hpf CLINIC Squamous Epithelial Occ (0-10) Negative, Occ [facility]- Cells /lpf (0-10) /lpf, Few CLINIC (11-20) /lpf Bacteria Many (>50) Negative [place] [address] /hpf (A) CLINIC Hyaline Cast 0-2 /lpf 0-2 /lpf [address] Specimen Urine - Urine specimen obtained by singl e catheterization of bladder (specimen) Narrative Performed At Urine Culture Reflexed [place] [address] [facility] Performing Organization Address [facility] Phon e Number [address] [place] [address], [place] [address] URINE DIP, REFLEX TO MICROSCOPIC, REFLEX TO CULTURE (04/27/2021 11:45 AM CDT) Color Urine Yellow Velia, Dark [place] [address] Yellow, Straw, CLINIC Yellow, Colorless Clarity Urine Slightly Cloudy Clear [place] [address] (A) CLINIC Glucose Urine Negative Negative [address] Bilirubin Urine Negative Negative [address] Ketones Urine Negative Negative, 5 [place] [address] mg/dL, 10 mg/dL CLINIC Specific [place] 1.021 1.002 - 1.[address] Blood Urine Moderate (2+) Negative [place] [address] (A) [facility] PH Urine 6.5 5.0, 5.5, 6.0, [place] [address] 6.5, 7.0, 7.5, CLINIC 8.0 Protein Urine Trace (10-20) Negative [place] [address] mg/dL (A) CLINIC Urobilinogen < 2 mg/dL < 2 mg/dL [place] [address] [facility] Nitrite Positive (A) Negative [place] [address] [facility] Leukocyte Esterase Large (3+) (A) Negative [place] [address] Urine CLINIC Specimen Urine - U[facility] of bladder (specimen) Narrative Performed At Urine Culture Reflexed [address] Microscopic Exam Reflexed Performing Organization Address [facility] Phon e Number [address] [place] [address], [place] [address] EKG (04/27/2021 10:16 AM CDT) Pathologist Sig nature EKG [facility] Atrial fibrillation with a competing junctional pacema ker Low voltage QRS, consider pu lmonary disease, pericardial effusion, or normal variant Cannot rule out Anterior infarct (cited on or before 1 08-NOV-2018) Abnormal ECG When compared with ECG of 18-NOV-2018 08:03, Atrial fibrillation has replaced Sinus rhythm Ventricular Rate: 82 BPM Atrial Rate: 86 BPM QRS Duration: 90 ms Q-T Interval: 384 ms QTc Calculation(Bazett): 448 ms Calculated R Brimfield: 72 degrees Calculated T [place]: 26 degrees Specimen Narrative Performed At This result has an attachment that is no t available. Performing Organization Address City/State/ZIP Code Phon e Number [facility] XRAY KNEE 3 VIEWS LT (04/27/2021 10:06 AM CDT) Specimen Narrative Performed At [facility] Patient Name: BAIRON ONOFRE Date of : 1935 Procedure: XRAY KNEE 3 VIEWS LT Date of Service: 04/27/2021 EXAM: XRAY KNEE 3 VIEWS LT INDICATION: fall; pain COMPARISON(S): None Available FINDINGS/IMPRESSION: There are no acute fractures or d islocations. The joint spaces are preserved. There is mild spurring see n off the posterior patella. There is no significant joint effus ion. Vascular calcifications. Finalized by: Kannan Patel MD on 2020 10:09 AM CDT Patient/Procedure Information: [facility] MRN/CHINO: [id number] Order Number: [id number] Accession Number: [id number] Ordering Provider: LEOPOLDO DALE Authorizing Provider: LEOPOLDO DALE Procedure Note Interface, Radiantres - 04/27/2021 10:11 AM CDT Patient Name: BAIRON ONOFRE Date of : 1935 Procedure: XRAY KNEE 3 VIEWS LT Date of Service: 04/27/2021 EXAM: XRAY KNEE 3 VIEWS LT INDICATION: fall; pain COMPARISON(S): None Available FINDINGS/IMPRESSION: There are no acute fractures or dislocations. The joint spaces are preserved. There is mild spurring seen off the posterior patella. There is no significant joint effusion. Vascular calcifications. Finalized by: Kannan Patel MD on 2020 10:09 AM CDT Patient/Procedure Information: [facility] MRN/CHINO: [id number] Order Number: [id number] Accession Number: [id number] Ordering Provider: LEOPOLDO DALE Authorizing Provider: LEOPOLDO DALE Performing Organization Address City/State/ZIP Code Phon e Number [id number] XRAY KNEE 3 VIEWS RT (04/27/2021 10:06 AM CDT) Specimen Narrative Performed At This result has an attachment that is no t available. [facility] Patient Name: BAIRON ONOFRE Date of : 1935 Procedure: XRAY KNEE 3 VIEWS RT Date of Service: 04/27/2021 EXAM: XRAY KNEE 3 VIEWS RT INDICATION: fall; pain COMPARISON(S): None Available FINDINGS/IMPRESSION: There are no acute fractures or dislocations. The joint spaces are preserved. There is no significant joint effusion. Vascular calcifications. Finalized by: Kannan Patel MD on 04/27/2021 10:09 AM CDT Patient/Procedure Information: [facility] MRN/CHINO: [id number] Order Number: [id number] Accession Number: [id number] Ordering Provider: LEOPOLDO DALE Authorizing Provider: LEOPOLDO DALE Procedure Note Interface, Radiantres - 04/27/2021 10:11 AM CDT Patient Name: BAIRON ONOFRE Date of : 1935 Procedure: XRAY KNEE 3 VIEWS RT Date of Service: 04/27/2021 EXAM: XRAY KNEE 3 VIEWS RT INDICATION: fall; pain COMPARISON(S): None Available FINDINGS/IMPRESSION: There are no acute fractures or dislocations. The joint spaces are preserved. There is no significant joint effusion. Vascular calcifications. Finalized by: Kannan Patel MD on 2020 10:09 AM CDT Patient/Procedure Information: [facility] MRN/CHINO: [id number] Order Number: [id number] Accession Number: [id number] Ordering Provider: LEOPOLDO DALE Authorizing Provider: LEOPOLDO DALE Performing Organization Address City/State/ZIP [facility] Phon e Number [id number] XRAY HIP MIN 2 VIEWS LT (04/27/2021 9:51 AM CDT) Specimen Narrative Performed At [facility] Patient Name: BAIRON ONOFRE Date of : 1935 Procedure: XRAY HIP MIN 2 VIEWS LT Date of Service: 04/27/2021 EXAM: XRAY HIP MIN 2 VIEWS LT INDICATION: fall; trauma COMPARISON(S): None Available FINDINGS/IMPRESSION: There are no acute fractures or d islocations. Mild joint space narrowing of the hip. Vascul ar calcifications. Finalized by: Kannan Patel MD on 2020 10:13 AM CDT Patient/Procedure Information: [facility] MRN/CHINO: [id number] Order Number: [id number] Accession Number: [id number] Ordering Provider: LEOPOLDO DALE Authorizing Provider: LEOPOLDO DALE Procedure Note Interface, Radiantres - 04/27/2021 10:16 AM CDT Patient Name: BAIRON ONOFRE Date of : 1935 Procedure: XRAY HIP MIN 2 VIEWS LT Date of Service: 04/27/2021 EXAM: XRAY HIP MIN 2 VIEWS LT INDICATION: fall; trauma COMPARISON(S): None Available FINDINGS/IMPRESSION: There are no acute fractures or dislocations. Mild joint space narrowing of the hip. Vascular calcifications. Finalized by: Kannan Patel MD on 2020 10:13 AM CDT Patient/Procedure Information: [facility] MRN/CHINO: [id number] Order Number: [id number] Accession Number: [id number] Ordering Provider: LEOPOLDO DALE Authorizing Provider: LEOPOLDO DALE Performing Organization Address City/[facility] Code Phon e Number [id number] LAB ONLY-COMPLETE BLOOD COUNT WITH DIFFERENTIAL (04/27/2021 9:14 AM CDT) [facility] WBC 10.4 4.0 - 11.0 K/uL [address] RBC 3.61 (L) 3.80 - 5.30 [place] [address] [facility] M/uL Hemoglobin 10.7 (L) 11.5 - 15.[address] g/dL Hematocrit 34.1 (L) 35.0 - 45.0 % [address] MCV 94.5 80.0 - 98.[address] MCH 29.6 25.5 - 34.[address] MCHC 31.4 (L) 31.5 - 36.[address] g/dL RDW-CV 14.5 11.5 - 15.5 % [address] RDW-SD 50.4 (H) 35.5 - 50.[address] Platelet Count 210 140 - 400 K/uL [address] MPV 8.9 8.5 - 12.[address] Seg Neut Absolute 7.1 1.8 - 8.0 K/uL [address] Lymphocytes Absolute 2.1 0.8 - 4.1 K/uL [place] [address] CLINI C Monocytes Absolute 0.8 0.0 - 1.0 K/uL [address] Eosinophils Absolute 0.4 0.0 - 0.7 K/uL [place] [address] CLINI C Basophil Absolute 0.1 0.0 - 0.2 K/uL [address] Immature Granulocyte 0.06 0.00 - 0.[address] Absolute K/uL Neutrophils Abs. 7,100 /uL [address] (Segs and Bands) Neutrophils Percent 68.3 % [address] Lymphocytes Percent 19.7 % [address] Monocytes Percent 7.2 % [address] [address]RE[address] Immature Granulocyte 0.6 % [address] Percent Eosinophils Percent 3.4 % [address] Basophil Percent 0.8 % [address] Nucleated RBC 0 /[address] Specimen Blood - Blood specimen (specimen) Performing Organization Address City/State/ZIP Code Phon e Number [address] [place] [address] COMPREHENSIVE METABOLIC PANEL (04/27/2021 9:14 AM CDT) [facility] Glucose 91 70 - 100 mg/dL [address] BUN 22 6 - 22 mg/dL [address] Creatinine 0.85 0.60 - 1.[address] mg/dL BUN/Creatinine Ratio 25.9 (H) 10.0 - 25.[address] Sodium 140 135 - 145 meq/L [address] Potassium 4.1 3.5 - 5.3 meq/L [address] Chloride 109 99 - 110 meq/L [address] CO2 24 20 - 29 meq/L [address] Anion Gap with K 11 6 - 20 meq/L [address] Calcium 8.8 8.5 - 10.[address] mg/dL Protein Total 6.0 6.0 - 8.2 g/dL [address] Albumin 3.3 (L) 3.5 - 5.0 g/dL [address] Alkaline Phosphatase 46 30 - 150 U/L [address] AST - SGOT 17 0 - 35 U/L [address] ALT - SGPT 13 0 - 55 U/L [address] Bilirubin Total 0.4 0.2 - 1.2 mg/dL [address] Corrected Calcium 9.4 8.5 - 10.[address] mg/dL Age [address] eGFR Non- 63 >=[address] Guyanese mL/min/1.73m2 eGFR 77 >=[address] mL/min/1.73m2 Specimen Blood - Blood specimen (specimen) Performing Organization Address [facility] Phon e Number [address] [place] [id number] MAGNESIUM (04/27/2021 9:14 AM CDT) Pathologist Sig nature Magnesium 2.0 1.8 - 2.4 mg/dL [address] Specimen Blood - Blood specimen (specimen) Performing Organization Address [facility] Phon e Number [address] [place] [address], [place] [address] TROPONIN I (04/27/2021 9:14 AM CDT) Pathologist Sig nature Troponin I 0.018 (H) 0.000 - 0.013 ng/mL [place] [id number] [facility] Specimen Blood - Blood specimen (specimen) Performing Organization Address City/State/ZIP Code Phon e Number [place] [id number] [facility] [address] [place] [address] documented in this encounter Visit Diagnoses Diagnosis Weakness - Primary Other malaise and fatigue Contusion of knee, unspecified lateralit y, initial encounter Urinary tract infection without hematuri a, site unspecified Atrial fibrillation, unspecified type (H CC) Gastroesophageal reflux disease without esophagitis Esophageal reflux documented in this encounter Discharge Diagnoses Not on filedocumented in this encounter Administered Medications Medication Order MAR Action Action Date Dose Rate Site acetaminophen (TYLENOL) tablet Given 05/01/2021 10:22 PM CDT 1,0 00 mg 1,000 mg 1,000 mg, Oral, Three times a day, First dose on Sun04/30/21 at 1115, Until Discontinued, Adult patients: Total dose of acetaminophen from all acetaminophen containing products should not exceed 4 grams (4000 mg) per day. Pediatric Patients 0 - 3 months: Maximum of 60 mg/kg/24 hours of acetaminophen. Pediatric Patients older than 3 months: Maximum of 75 mg/kg/24 hours of acetaminophen (Never exceeding 4 grams/day). Given 05/01/2021 4:13 PM CDT 1,000 mg Given 05/01/2021 8:34 AM CDT 1,000 mg acetaminophen (TYLENOL) tablet 500 mg Given 05/02/2021 6:01 AM CDT 500 mg 500 mg, Oral, Every four hours prn, Starting on Sun04/27/21 at 1453, Until Discontinued, mild pain, Adult patients: Total dose of acetaminophen from all acetaminophen containing products should not exceed 4 grams (4000 mg) per day. Pediatric Patients 0 - 3 months: Maximum of 60 mg/kg/24 hours of acetaminophen. Pediatric Patients older than 3 months: Maximum of 75 mg/kg/24 hours of acetaminophen (Never exceeding 4 grams/day). Given 04/30/2021 5:18 AM CDT 500 mg Given 04/29/2021 8:43 PM CDT 500 mg apixaban (ELIQUIS) tablet 5 mg Given 05/02/2021 8:30 AM CDT 5 mg 5 mg, Oral, Two times a day, First dose on Sun04/27/21 at 2100, Until Discontinued Given 05/01/2021 10:22 PM CDT 5 mg Given 05/01/2021 8:33 AM CDT 5 mg bisacodyl (DULCOLAX) suppository 10 mg 10 mg, Rectal, One time a day prn, Starting on 04/07 at 1612, Until Discontinued, constipation, Use SECOND for constipatio n. If patient cannot take oral medications, use first for constipation. cyclobenzaprine (FLEXERIL) tablet 10 mg Given 05/01/2021 10:23 PM CDT 10 mg 10 mg, Oral, Bedtime, First dose (after last modification) on 05/01/21 at 2100, Until Discontinued docusate sodium (THEREVAC-SB MINI;ENEMEE Z MINI) 283 MG enema 1 enema 1 enema, Rectal, One time a day prn, Starting on Sun at 1612, Until Discontinued, constipation, Use THIRD for constipation - if no BM 8 hours after dulcolax suppository. If patient cannot take oral medi cations, use second for constipation. furosemide (LASIX) tablet 40 mg Given 05/02/2021 8:29 AM CDT 40 mg 40 mg, Oral, DAILY, First dose on Estefany 04/28/21 at 0900, Until Discontinued Given 05/01/2021 8:33 AM CDT 40 mg Given 04/30/2021 8:27 AM CDT 40 mg lidocaine (LIDODERM) 5% patch Applied 05/02/2021 8:32 AM CDT 2 patches 2 patch, Apply externally, Daily, First dose on 04/30/21 at 1115, Until Discontinued, Administer over 12 Hours Applied 05/01/2021 8:52 AM CDT 2 patches Applied 04/30/2021 2:56 PM CDT 2 patches losartan tablet 25 mg Given 04/29/2021 9:40 AM CDT 25 mg 25 mg, Oral, DAILY, First dose on Estefany 04/28/21 at 0900, Until Discontinued, HOld for systolic < 125 Given 04/28/2021 8:12 AM CDT 25 mg methyl salicylate-menthol (ANALGESIC BALM) Given 05/02/2021 8:3 2 AM CDT ointment Apply externally, Three times a day, First dose on 04/30/21 at 1115, Until Discontinued, Left leg back Given 05/01/2021 10:22 PM CDT Given 05/01/2021 4:21 PM CDT metoprolol succinate (TOPROL XL) SR tablet Given 05/02/2021 8:2 9 AM CDT 50 mg (24 hr) 50 mg 50 mg, Oral, DAILY, First dose on Sun04/28/21 at 0900, Until Discontinued, Tablet may be broken in half, but should not be crushed or chewed. Hold for systolic < 100 or HR < 60 Given 05/01/2021 8:34 AM CDT 50 mg Given 04/30/2021 8:27 AM CDT 50 mg omeprazole (priLOSEC) capsule 20 mg Given 05/02/2021 6:01 AM CDT 20 mg 20 mg, Oral, Two times a day before meals, First dose (after last modification) on Sun04/29/21 at 0700, Until Discontinued, Swallow cap whole. Do not crush, chew or open. Given 05/01/2021 4:15 PM CDT 20 mg Given 05/01/2021 8:35 AM CDT 20 mg ondansetron (ZOFRAN ODT) dispersible tab let 4 mg 4 mg, Oral, Four times a day prn, Starting on 04/27 at 1612, Until Discontinued, nausea, vomiting, Use FIRS T for nausea / vomiting. If ineffective after 30 minutes use ondansetron IV ondansetron (ZOFRAN) injection solution 4 mg 4 mg, IV, Four times a day prn, Starting on Sun 1 at 1612, Until Discontinued, nausea, vomiting, 2 mL, Use SECOND for n ausea / vomiting. If ineffective after 30 minutes and ondansetron ODT used, call physician for alternative. If preference is to further dilute for IV administration: First draw up patient-specific dose, then dilute to 10 mL with 0. 9% sodium chloride. potassium chloride (KLOR-CON M10) TBCR 30 Given 05/02/2021 8:29 AM CDT 30 mEq mEq 30 mEq, Oral, DAILY, First dose on Sun04/28/21 at 0900, Until Discontinued, Tablet may be broken in half, but should not be crushed or chewed. Tablet may be dissolved in 4 oz of water. DO NOT give via feeding tube as this can clog the tube. Given 05/01/2021 8:35 AM CDT 30 mEq Given 04/30/2021 8:27 AM CDT 30 mEq predniSONE tablet 5 mg Given 05/02/2021 8:30 AM CDT 5 mg 5 mg, Oral, Daily, First dose (after last modification) on Sun04/29/21 at 0900, Until Discontinued Given 05/01/2021 8:35 AM CDT 5 mg Given 04/30/2021 8:27 AM CDT 5 mg senna-docusate sodium (SENOKOT-S;PERICOL JANET) tablet 2 tablet 2 tablet, Oral, Two times a day prn, Starting on Sun at 1612, Until Discontinued, constipation, Use FIRST fo r constipation unless patient cannot take oral medications. sodium chloride 0.9% flush (adult) 10 mL Given 05/02/2021 8:57 AM CDT 10 mL 10 mL, IV, Two times a day and prn, First dose on Sun04/27/21 at 2100, Until Discontinued, 10 mL, Flush PIV line as scheduled and as often as necessary before and after meds. Use a push / pause technique when flushing to create turbulence. Given 05/01/2021 10:20 PM CDT 10 mL Given 05/01/2021 9:19 AM CDT 10 mL tamsulosin (FLOMAX) capsule 0.4 mg Given 05/02/2021 8:30 AM CDT 0.4 mg 0.4 mg, Oral, DAILY, First dose on Sun04/28/21 at 0900, Until Discontinued, Swallow cap whole. Do not crush, chew or open. Given 05/01/2021 8:35 AM CDT 0.4 mg Given 04/30/2021 8:27 AM CDT 0.4 mg traMADol (ULTRAM) half-tablet 25 mg 25 mg, Oral, Every twelve hours prn, Starting on Sun at 1145, Until Discontinued, severe pain, Recommended maximum daily d ose of tramadol = 400 mg. Recommended maximum daily dose in patients 75 years or older = 300 mg. Medication Order MAR Action Action Date Dose Rate Site aspirin enteric coated tablet 81 Given 04/27/2021 9:29 PM CDT 8 1 mg mg 81 mg, Oral, Bedtime, First dose on Sun04/27/21 at 2100, Until Discontinued, Tablet should be swallowed whole and not be divided, crushed or chewed. cefTRIAXone (ROCEPHIN) 1000 mg/10 mL IV Given 04/29/2021 4:53 P M CDT 1,000 mg syringe in sterile water 1,000 mg, IV, Every twenty four hours, First dose on Sun04/28/21 at 1600, Until Discontinued, 10 mL, Administer over 5 minutes. Given 04/28/2021 3:24 PM CDT 1,000 mg cefTRIAXone (ROCEPHIN) 1000 mg/10 mL IV Given 04/30/2021 11:33 A M CDT 1,000 mg syringe in sterile water 1,000 mg, IV, One time, 1 dose, On Sun04/30/21 at 1215, 10 mL, Administer over 5 minutes. cefTRIAXone (ROCEPHIN) 2000 mg/20 mL IV Given 04/27/2021 1:19 P M CDT 2,000 mg syringe in sterile water 2,000 mg, IV, Now, 1 dose, On Sun04/27/21 at 1230, 20 mL, Flush IV line with normal saline prior and post administration. Do not administer with calcium containing solutions (example: Lactated Ringer's, TPN with calcium, etc) as these are not compatible with ceftriaxone. Administer over 5 minutes. cyclobenzaprine (FLEXERIL) tablet 10 mg Given 04/30/2021 8:44 PM CDT 10 mg 10 mg, Oral, Bedtime, First dose on Sun04/30/21 at 2100, Until Discontinued omeprazole (priLOSEC) capsule 20 mg Given 04/28/2021 6:39 AM CDT 20 mg 20 mg, Oral, DAILY, First dose on Sun04/28/21 at 0700, Until Discontinued, Swallow cap whole. Do not crush, chew or open. predniSONE tablet 10 mg Given 04/28/2021 8:11 AM CDT 10 mg 10 mg, Oral, Daily, First dose (after last modification) on Estefany 04/28/21 at 0900, Until Discontinued predniSONE tablet 5 mg Given 04/27/2021 5:40 PM CDT 5 mg 5 mg, Oral, Daily, First dose on Sun04/27/21 at 1615, Until Discontinued sodium chloride 0.9% flush (adult) 10 mL Given 04/27/2021 9:15 AM CDT 10 mL 10 mL, IV, Two times a day and prn, First dose on Sun04/27/21 at 0900, Until Discontinued, 10 mL, Flush unused lumens as scheduled and as often as necessary before and after meds. Use a push/pause technique when flushing to create turbulence. sodium chloride 0.9% IV solution New Bag 04/28/2021 7:43 AM CDT 75 mL/hr IV, at 75 mL/hr, Continuous, Starting on Sun04/27/21 at 1615, Until Estefany 04/28/21 at 1214, 1,000 mL New Bag 04/27/2021 5:16 PM CDT 75 mL/hr documented in this encounter Active and Recently Administered Medications Times are shown in CDT. Medication Order 04/30/2021 05/01/2021 05/02/2021 acetaminophen (TYLENOL) tablet 1,000 mg 1134 (Given - Provider: Rosalva Haq RN)1455 (Given - Provider: Rosalva Haq RN)2311 (Given - Provider: Myrna Juarez RN) 0834 (Given - Provider: Kaylin Kendall RN)1613 (Given - Provider: Kaylin Kendall RN)2222 (Given - Provider: Ronda Larsen RN) 0829 (Held - Provider: Halley Pugh, CARMEN)1500 (Due)2100 (Due) 1,000 mg, Oral, Three times a day, First dose on 04/30/21 at 1115, Until Discontinued, Adult patients: Total dose of acetaminophen from all acetaminophen containing products should not exceed 4 grams (4000 mg) per day. Pediatric Patients 0 - 3 months: Maximum of 60 mg/kg/24 hours of acetaminophen. Pediatric Patients older than 3 months: Maximum of 75 mg/kg/24 hours of acetaminophen (Never exceeding 4 grams/day). apixaban (ELIQUIS) tablet 5 mg 0827 (Given - Provider: Rosalva Haq RN)2044 (Given - Provider: Myrna Juarez RN) 0833 (Given - Provider: Kaylin Kendall RN)2222 (Given - Provider: Ronda Larsen, CARMEN) 0830 (Given - Provider: Halley Pugh, RN)2100 (Due) 5 mg, Oral, Two times a day, First dose on Sun04/27/21 at 2100, Until Discontinued cefTRIAXone (ROCEPHIN) 1000 mg/10 mL IV syringe in valerio rile water (COMPLETED) 1133 (Given - Provider: Rosalva Haq RN) 1,000 mg, IV, One time, 1 dose, On Sat at 1215, 10 mL, Administer over 5 minutes. cyclobenzaprine (FLEXERIL) tablet 10 mg (CANCELED) 204 4 (Given - Provider: Myrna Juarez RN) 10 mg, Oral, Bedtime, First dose on 04/30/21 at 2100, Until D iscontinued cyclobenzaprine (FLEXERIL) tablet 10 mg 2223 (Given - Provider: Ronda Larsen RN) 2100 (Due) 10 mg, Oral, Bedtime, First dose (after last modification) on Sun05/01/21 at 2100, Until Discontinued furosemide (LASIX) tablet 40 mg 0827 (Given - Provider: Tonny Haq RN) 0833 (Given - Provider: Kaylin Kendall RN) 0829 (Given - Provider: Halley Pugh, CARMEN) 40 mg, Oral, DAILY, First dose on Estefany 04/28/21 at 0900, Until Dis continued lidocaine (LIDODERM) 5% patch 1145 (Refused - Provider : Rosalva Haq RN)1456 (Applied - Provider: Rosalva Haq RN) 0200 (Remove - Provider: Myrna Juarez RN)0852 (Applied - Provider: Kaylin Kendall, CARMEN)2217 (Remove - Provider: Graeme Baig RN) 0832 (Applied - Provider: Halley eng RN)203 (Due: Remove - Provider: Halley Pugh, CARMEN) 2 patch, Apply externally, Daily, First dose on 04/30/21 at 1115, Until Discontinued, Administer over 12 Hours losartan tablet 25 mg 0820 (Not Indicated - Provid er: Rosalva Haq RN - Comment: BP 105/64) 0834 (Held - Provider: Kaylin Kendall, CARMEN - Comment: SBP<125) 0829 (Held - Provider: Halley Pugh, CARMEN) 25 mg, Oral, DAILY, First dose on Estefany at 0900, Until Discontinued, HOld for systolic < 125 methyl salicylate-menthol (ANALGESIC BALM) ointment 11 35 (Given - Provider: Rosalva Haq RN)1456 (Given - Provider: Rosalva Haq RN)2317 (Given - Provider: Myrna Juarez RN) 0857 (Given - Provider: Kaylin Kendall, CARMEN)1621 (Given - Provider: Kaylin Kendall, CARMEN)2222 (Given - Provider: Ronda Larsen RN) 0832 (Given - Provider: Halley Pugh RN)1500 (Due)2100 (Due) Apply externally, Three times a day, Fir st dose on Sun04/30/21 at 1115, Until Discontinued, Left leg back metoprolol succinate (TOPROL XL) SR tablet (24 hr) 50 mg 0827 (Given - Provider: Rosalva Haq RN) 0834 (Given - Provider: Kaylin Kendall, CARMEN) 0829 (Giv en - Provider: Halley Pugh, CARMEN) 50 mg, Oral, DAILY, First dose on Estefany at 0900, Until Discontinued, Tablet may be broken in half, but should not be crushed or chewed. Hold for systolic < 100 or HR < 60 omeprazole (priLOSEC) capsule 20 mg 0518 (Given - Prov ider: Caro Niño RN)1658 (Given - Provider: Rosalva Haq RN) 0835 (Given - Provider: Kaylin eKndall, RN)1615 (Given - Provider: Kaylin Kendall, CARMEN) 0601 (Given - Provider: Graeme Baig RN)1700 (Due) 20 mg, Oral, Two times a day before meal s, First dose (after last modification) on Sun04/29/21 at 0700, Until Discontinued, Swallow cap whole. Do not crush, chew or open. potassium chloride (KLOR-CON M10) TBCR 30 mEq 0827 (Gi jin - Provider: Rosalva Haq, CARMEN) 0835 (Given - Provider: Kaylin Kendall, RN) 0829 (Giv en - Provider: Halley Pugh, RN) 30 mEq, Oral, DAILY, First dose on Sun at 0900, Until Discontinued, Tablet may be broken in half, but should not be crushed or chewed. Tablet may be dissolved in 4 oz of water. DO NOT give via feeding tube as this can clog the tube. predniSONE tablet 5 mg 08 (Given - Provider: Rosalva angela RN) 0835 (Given - Provider: Kaylin Kendall, CARMEN) 0830 (Given - Provider: Halley Pugh, RN) 5 mg, Oral, Daily, First dose (after las t modification) on Sun04/29/21 at 0900, Until Discontinued sodium chloride 0.9% flush (adult) 10 mL 826 (Given - Provider: Rosalva Haq, CARMEN)2043 (Given - Provider: Myrna Juarez RN) 09 (Given - Provider: Kaylin Kendall, CARMEN)222 (Given - Provider: Graeme Baig, CARMEN) 0857 (Given - Provider: Halley Pugh, CARMEN)2100 (Due) 10 mL, IV, Two times a day and prn, Firs t dose on Sun04/27/21 at 2100, Until Discontinued, 10 mL, Flush PIV line as scheduled and as often as necessary before and after meds. Use a push / pause technique when flushing to create turbulence. tamsulosin (FLOMAX) capsule 0.4 mg 826 (Given - Provi adiel: Rosalva Haq RN) 08 (Given - Provider: Kaylin Kendall, CARMEN) 0830 (Giv en - Provider: Halley Pugh, RN) 0.4 mg, Oral, DAILY, First dose on Sun at 0900, Until Discontinued, Swallow cap whole. Do not crush, chew or open. Medication Order 04/30/2021 05/01/2021 05/02/2021 acetaminophen (TYLENOL) tablet 500 mg 0518 (Given - Pr ovider: Caro Niño RN) 06 (Given - Provider: Fawn Baig RN) 500 mg, Oral, Every four hours prn, Star ting on Sun04/27/21 at 1453, Until Discontinued, mild pain, Adult patients: Total dose of acetaminophen from all acetaminophen containing products should not exce ed 4 grams (4000 mg) per day. Pediatric Patients 0 - 3 months: Maximum of 60 mg/kg/24 hours of acetaminophen. Pediatric Patients older than 3 months: Maximum of 75 mg/kg/24 hours of acetaminophen (Never exceeding 4 grams/day). bisacodyl (DULCOLAX) suppository 10 mg(Linked Group 1) 10 mg, Rectal, One time a day prn, Start ing on Sun04/27/21 at 1612, Until Discontinued, constipation, Use SECOND for constipation. If patient cannot take oral medications, use first for constipation. docusate sodium (THEREVAC-SB MINI;ENEMEE Z MINI) 283 MG enema 1 enema(Linked Group 1) 1 enema, Rectal, One time a day prn, Sta rting on Sun04/27/21 at 1612, Until Discontinued, constipation, Use THIRD for constipation - if no BM 8 hours after dulcolax suppository. If patient cannot take oral medications, use second for constipation. melatonin tablet 3 mg 3 mg, Oral, Bedtime prn, Starting on Sun04/27/21 at 1612, Until Discontinued, other (Specify), insomnia, Use FIRST for insomnia. If inadequate response in 60 minutes, may proceed to next choice option or, if no other options, contact provider. nalOXone (NARCAN) injection solution (vial) 0.2 mg 0.2 mg, Injection, Every two minutes prn , Starting on Sun04/27/21 at 1610, Until Discontinued, other (Specify), opioid induced respiratory depression - PARTIAL reversal, 0.5 mL, PARTIAL REVERSAL/RESPIRA TORY DEPRESSION If respiratory rate less than 8/minute - call rapid response and administer (until respiratory rate increases to 10/minute). Give IV (preferred), IM or SUBQ nalOXone (NARCAN) injection solution (vial) 0.4 mg 0.4 mg, Injection, Every two minutes prn , Starting on Sun04/27/21 at 1610, Until Discontinued, other (Specify), opioid induced respiratory arrest - FULL reversal, 1 mL, FULL REVERSAL/RESPIRATORY ARREST If patient is not breathing - call CODE BLUE and administer. Give IV (preferred), IM or SUBQ ondansetron (ZOFRAN ODT) dispersible tablet 4 mg(Linked Group 2) 4 mg, Oral, Four times a day prn, Starti ng on Sun04/27/21 at 1612, Until Discontinued, nausea, vomiting, Use FIRST for nausea / vomiting. If ineffective after 30 minutes use ondansetron IV ondansetron (ZOFRAN) injection solution 4 mg(Linked Group 2) 4 mg, IV, Four times a day prn, Starting on Sun04/27/21 at 1612, Until Discontinued, nausea, vomiting, 2 mL, Use SECOND for nausea / vomiting. If ineffective after 30 minutes and ondansetron ODT used, call physician for alternative. If prefe rence is to further dilute for IV administration: First draw up patient-specific dose, then dilute to 10 mL with 0.9% sodium chloride. senna-docusate sodium (SENOKOT-S;PERICOLACE) tablet 2 tablet(Tammie tamayo Group 1) 2 tablet, Oral, Two times a day prn, Sta rting on Sun04/27/21 at 1612, Until Discontinued, constipation, Use FIRST for constipation unless patient cannot take oral medications. traMADol (ULTRAM) half-tablet 25 mg 25 mg, Oral, Every twelve hours prn, Sta rting on Sun05/01/21 at 1145, Until Discontinued, severe pain, Recommended maximum daily dose of tramadol = 400 mg. Recommended maximum daily dose in patients 75 years or older = 300 mg. Order Group 1: senna-docusate sodium (SENOKOT-S;PERICOLACE) tablet 2 tabletJump to med 2 tablet, Oral, Two times a day prn, Sta rting on Sun04/27/21 at 1612, Until Discontinued, constipation
Use FIRST for constipation unless patient cannot take oral medications.
And bisacodyl (DULCOLAX) suppository 10 mgJump to med 10 mg, Rectal, One time a day prn, Start ing on Sun04/27/21 at 1612, Until Discontinued, constipation
Use SECOND for constipation. If patient cannot take oral medications, use first for constipation.
And docusate sodium (THEREVAC-SB MINI;ENEMEEZ MINI) 283 MG enema 1 enemaJump to med 1 enema, Rectal, One time a day prn, Sta rting on Sun04/27/21 at 1612, Until Discontinued, constipation
Use THIRD for constipation - if no BM 8 hours after dulcolax suppository. If patient canno t take oral medications, use second for constipation.
Group 2: ondansetron (ZOFRAN ODT) dispersible tablet 4 mgJump to med 4 mg, Oral, Four times a day prn, Starti ng on Sun04/27/21 at 1612, Until Discontinued, nausea, vomiting
Use FIRST for nausea / vomiting. If ineffective after 30 minutes use ondansetron IV
And ondansetron (ZOFRAN) injection solution 4 mgJump to med 4 mg, IV, Four times a day prn, Starting on Sun04/27/21 at 1612, Until Discontinued, nausea, vomiting, 2 mL
Use SECOND for nausea / vomiting. If ineffective after 30 minutes and ondan setron ODT used, call physician for alte rnative. If preference is to further dilute for IV administration: First draw up patient-specific dose, then dilute to 10 mL with 0.9% sodium chloride.
documented in this encounter
[2021-05-02] MEDS: Pantoprazole 40 MG Tab.CR PO SCH (18:23)
--- NOTE | 2021-05-02 18:27 | PCM.HP.2 ---
H&P History of Present Illness - General Date of Service: 05/02/21 Admit Problem/Dx: Admission Diagnosis/Problem Admission Diagnosis/Problem Weakness Source of Information: Patient, Old Records, Provider History Limitations: Reports: No Limitations - History of Present Illness Initial Comments - Free Text/Narative: 85-year-old lady admitted to retirement/swing bed for rehabilitation secondary to weakness. She suffered a fall on 04/27/2021 and was taken to the emergency department in [place], [place]. She was found to have a urinary tract infection and new onset of atrial fibrillation. She had a TEVAR procedure sometime ago and has otherwise been living independently. Review of her medical record does show a history of CAD, CHF with exacerbation, pulmonary fibrosis, hypertension, and hyperlipidemia. Review of surgical history shows cholecystectomy, hysterectomy, and TAVR. Her only acute complaint is bilateral knee pain. This is chronic. She has rece ived steroid injections into the knee joint for pain relief several times in the past, the most recent injection was January 2021. Bilateral Knee Pain Score (Numeric/FACES): 5 - Related Data Allergies/Adverse Reactions: Allergies Allergy/AdvReac Type Severity Reaction Status Date / Time Robles Inhibitors Allergy Severe Wheezing Uncoded 05/02/21 16:40 Sulfa drugs Allergy Severe Hives Uncoded 05/02/21 16:40 Home Medications: Home Meds Apixaban [Eliquis] 5 mg PO BID 05/02/21 [History] Cholecalciferol (Vitamin D3) [Vitamin D3] 50 mcg PO DAILY 05/02/21 [History] Furosemide [Lasix] 40 mg PO DAILY 05/02/21 [History] Lidocaine 5% [Lidoderm 5%] 1,400 mg TD DAILY 05/02/21 [History] Losartan [Cozaar] 25 mg PO DAILY 05/02/21 [History] Menthol/Methyl Salicylate [Icy Hot] 1 applic TOP TID 05/02/21 [History] Metoprolol Succinate [Toprol Xl] 50 mg PO DAILY 05/02/21 [History] Omeprazole 20 mg PO BID@06,17 05/02/21 [History] Potassium Chloride [Klor-Con 10] 30 meq PO DAILY 05/02/21 [History] Rosuvastatin [Crestor] 10 mg PO DAILY 05/02/21 [History] Tamsulosin [Flomax] 0.4 mg PO DAILY 05/02/21 [History] Vit A/C/E AC/Znox/Cupric Oxide [Eye Vitamin-Minerals Tablet] 1 tab PO DAILY 05/02/21 [History] predniSONE [Prednisone] 5 mg PO WITHBREAKFAST 05/02/21 [History] Past Medical History HEENT History: Reports: None Cardiovascular History: Reports: Afib, CAD, Hypertension, Stents Respiratory History: Reports: Pulmonary Fibrosis Genitourinary History: Reports: UTI, Recurrent NURSE INFORMATICIST History: Reports: None Musculoskeletal History: Reports: None Neurological History: Reports: None Psychiatric History: Reports: None Hematologic History: Reports: None Immunologic History: Reports: None Oncologic (Cancer) History: Reports: None Dermatologic History: Reports: Other (See Below) Other Dermatologic History: Dermatomyositis - Infectious Disease History Infectious Disease History: Reports: None - Past Surgical History Head Surgeries/Procedures: Reports: None HEENT Surgical History: Reports: None Cardiovascular Surgical History: Reports: None Respiratory Surgical History: Reports: None GI Surgical History: Reports: None Female Surgical History: Reports: None Endocrine Surgical History: Reports: None Neurological Surgical History: Reports: None Musculoskeletal Surgical History: Reports: None Oncologic Surgical History: Reports: None Social & Family History - Family History HEENT: Reports: None Cardiac: Reports: CAD Respiratory: Reports: None GI: Reports: None : Reports: None OBGYN: Reports: None Musculoskeletal: Reports: None Neurological: Reports: None Psychiatric: Reports: None Endocrine/Metabolic: Reports: None Hematologic: Reports: None Immunologic: Reports: None Dermatologic: Reports: None Oncologic: Reports: None - Tobacco Use Tobacco Use Status *Q: Never Tobacco User Second Hand Smoke Exposure: No - Caffeine Use Caffeine Use: Reports: Coffee, Soda Caffeine Use Comment: Drinks 1 cup of coffee a day. - Recreational Drug Use Recreational Drug Use: No H&P Review of Systems - Review of Systems: Review Of Systems: See Below General: Reports: Weakness HEENT: Reports: No Symptoms Pulmonary: Reports: No Symptoms Cardiovascular: Reports: No Symptoms Gastrointestinal: Reports: No Symptoms Genitourinary: Reports: No Symptoms Musculoskeletal: Reports: Joint Pain Skin: Reports: No Symptoms Psychiatric: Reports: No Symptoms Neurological: Reports: No Symptoms, Change in Speech Immunologic: Reports: No Symptoms Exam - Exam Exam: See Below - Vital Signs Vital Signs: Last Vital Signs Temp 37.4 C 05/02/21 15:31 Pulse 91 05/02/21 15:31 Resp 18 05/02/21 15:31 BP 123/76 05/02/21 15:31 Pulse Ox 98 05/02/21 15:31 Weight: 71.214 kg - Exam Quality Assessment: DVT Prophylaxis General: Alert, Oriented, Cooperative HEENT: EOMI Neck: Supple Lungs: Normal Respiratory Effort, Crackles Cardiovascular: Regular Rate, Irregular Rhythm, Systolic Murmur GI/Abdominal Exam: Normal Bowel Sounds, Soft, Non-Tender Back Exam: Normal Inspection. No: CVA Tenderness (R), CVA Tenderness (L) Extremities: Pedal Edema Peripheral Pulses: 1+: Dorsalis Pedis (L), Dorsalis Pedis (R), 2+: Radial (L), Radial (R) Skin: Warm, Dry Neuro Extensive - Mental Status: Alert, Oriented x3, Normal Mood/Affect, Normal Cognition Psychiatric: Alert, Normal Affect, Normal Mood Sepsis Event Note - Evaluation Sepsis Screening Result: No Definite Risk - Focused Exam Vital Signs: Vital Signs Temp Pulse Resp BP Pulse Ox Pulse Ox 05/02/21 15:31 37.4 C 91 18 123/76 96 98 - Problem List (1) Coronary artery disease SNOMED Code(s): 93477322 ICD Code: I25.10 - ATHSCL HEART DISEASE OF [place] CORONARY ARTERY W/O ANG PCTRS Status: Chronic Current Visit: Yes (2) Congestive heart failure SNOMED Code(s): 48872810 ICD Code: I50.9 - HEART FAILURE, UNSPECIFIED Status: Chronic Current Visit: Yes (3) Atrial fibrillation SNOMED Code(s): 73101921 ICD Code: I48.91 - UNSPECIFIED ATRIAL FIBRILLATION Status: Acute Current Visit: Yes (4) S/P TAVR (transcatheter aortic valve replacement) SNOMED Code(s): 4885019605085, 823620141, 421241650, 0488688080867 ICD Code: Z95.2 - PRESENCE OF PROSTHETIC HEART VALVE Status: Chronic Current Visit: Yes (5) Dermatomyositis SNOMED Code(s): 862478403 ICD Code: M33.90 - DERMATOPOLYMYOSITIS, UNSP, ORGAN INVOLVEMENT UNSPECIFIED Status: Chronic Current Visit: Yes (6) Weakness SNOMED Code(s): 15822856 ICD Code: R53.1 - WEAKNESS Status: Acute Current Visit: Yes (7) Hyperlipidemia SNOMED Code(s): 54812847 ICD Code: E78.5 - HYPERLIPIDEMIA, UNSPECIFIED Status: Chronic Current Visit: Yes (8) Hypertension SNOMED Code(s): 00832701 ICD Code: I10 - ESSENTIAL (PRIMARY) HYPERTENSION Status: Chronic Current Visit: Yes (9) Pulmonary fibrosis SNOMED Code(s): 46450415 ICD Code: J84.10 - PULMONARY FIBROSIS, UNSPECIFIED Status: Chronic Current Visit: Yes (10) Osteoarthritis SNOMED Code(s): 840870179 ICD Code: M19.90 - UNSPECIFIED OSTEOARTHRITIS, UNSPECIFIED SITE Status: Chronic Current Visit: Yes Problem List Initiated/Reviewed/Updated: Yes Orders Last 24hrs: Active Orders 24 hr Category Date Time Status Admission Status [Patient Status] [ADT] Routine ADT 05/02/21 15:28 Active Patient Status [ADT] Routine ADT 05/02/21 15:31 Active Height and Weight [RC] 06 Care 05/02/21 15:31 Active Oxygen Therapy [RC] PRN Care 05/02/21 15:31 Active VTE/DVT Education [RC] Per Unit Routine Care 05/02/21 15:31 Active Vital Signs [RC] PER UNIT ROUTINE Care 05/02/21 15:31 Active OT Evaluation and Treatment [CONS] Routine Cons 05/02/21 15:33 Active PT Evaluation and Treatment [CONS] Routine Cons 05/02/21 15:33 Active Heart Healthy Diet [DIET] Diet 05/02/21 Dinner Active Apixaban [Eliquis] Med 05/02/21 21:00 Active 5 mg PO BID Cholecalciferol (Vitamin D3) [Vitamin D3] Med 05/03/21 09:00 Active 50 mcg PO DAILY Furosemide [Lasix] Med 05/03/21 09:00 Active 40 mg PO DAILY Lidocaine 4% [Aspercreme 4%] Med 05/03/21 09:00 Active 2 each TOP DAILY Losartan [Cozaar] Med 05/03/21 09:00 Active 25 mg PO DAILY Lutein/Min/Vit C/Vit E Acetate [Ocuvite Lutein] Med 05/03/21 09:00 Active 1 each PO DAILY Menthol/Methyl Salicylate [Icy Hot Cream] Med 05/02/21 21:00 Active 0 gm TOP TID Metoprolol Succinate [Toprol XL] Med 05/03/21 09:00 Active 50 mg PO DAILY Pantoprazole [ProTONIX] Med 05/02/21 17:00 Active 40 mg PO BID@ Potassium Chloride [Klor-Con 10] Med 05/03/21 09:00 Active 30 meq PO DAILY Remove Patch Med 05/02/21 21:00 Active 2 ea TRDERM BEDTIME Rosuvastatin [Crestor] Med 05/03/21 09:00 Active 10 mg PO DAILY Tamsulosin [Flomax] Med 05/03/21 09:00 Active 0.4 mg PO DAILY predniSONE Med 05/03/21 08:00 Active 5 mg PO WITHBREAKFAST Resuscitation Status Routine Resus Stat 05/02/21 15:31 Ordered Medication Orders Apixaban (Apixaban 5 Mg Tab) 5 mg PO BID CAT Cholecalciferol (Cholecalciferol (Vitamin D3) 25 Mcg Tab) 50 mcg PO DAILY CAT Furosemide (Furosemide 40 Mg Tab) 40 mg PO DAILY [facility] Lidocaine (Lidocaine 4% 1 Each Patch) 2 each TOP DAILY CAT Losartan Potassium (Losartan 25 Mg Tab) 25 mg PO DAILY CAT Methyl Salicylate (Menthol/Methyl Salicylate 85 Gm Tube) 0 gm TOP TID CAT Metoprolol Succinate (Metoprolol Succinate 50 Mg Tab.Er) 50 mg PO DAILY CAT Miscellaneous Information (Lidocaine Patch) 2 ea TRDERM BEDTIME CAT Pantoprazole Sodium (Pantoprazole 40 Mg Tab.Cr) 40 mg PO BID@ CAT Potassium Chloride (Potassium Chloride 10 Meq Tab.Er) 30 meq PO DAILY CAT Prednisone (Prednisone 5 Mg Tab) 5 mg PO WITHBREAKFAST CAT Rosuvastatin Calcium (Rosuvastatin 10 Mg Tab) 10 mg PO DAILY CAT Tamsulosin HCl (Tamsulosin 0.4 Mg Cap.Er) 0.4 mg PO DAILY CAT Vit C/Vit E/Zinc/Copper/Lutein (Lutein/Minerals/Vitamin C/Vitamin E Acetate Cap) 1 each PO DAILY CAT Assessment/Plan Comment:: Patient admitted to swing bed/retirement for PT OT for strengthening to hopefully return to independent living. Restart patient's home medications Patient requested treatment for osteoarthritis/knee pain. This is advisable as it will help her with her rehabilitation exercises. Regular diet as tolerated Patient is on Eliquis secondary to atrial fibrillation
[2021-05-02] MEDS: Apixaban 5 MG Tab PO SCH (20:14)
[2021-05-02] MEDS: Menthol/Methyl Salicylate 85 GM Tube TOP SCH (22:02)
[2021-05-02] MEDS: LIDOCAINE PATCH TRDERM SCH (22:49)
[2021-05-03] MEDS ORDERED: Acetaminophen 325 MG Tab ONE (02:59)
[2021-05-03] MEDS: Acetaminophen 325 MG Tab PO PRN ×4 (02:59→21:36)
[2021-05-03] MEDS: Pantoprazole 40 MG Tab.CR PO SCH ×2 (06:20→17:44)
[2021-05-03] MEDS: Potassium Chloride 10 MEQ Tab.ER PO SCH (08:48)
[2021-05-03] MEDS: Menthol/Methyl Salicylate 85 GM Tube TOP SCH ×3 (08:48→20:21)
[2021-05-03] MEDS: predniSONE 5 MG Tab PO SCH (08:48)
[2021-05-03] MEDS: Rosuvastatin 10 MG Tab PO SCH (08:49)
[2021-05-03] MEDS: Lutein/Minerals/Vitamin C/Vitamin E Acetate Cap PO SCH (08:49)
[2021-05-03] MEDS: Losartan 25 MG Tab PO SCH (08:49)
[2021-05-03] MEDS: Furosemide 40 MG Tab PO SCH (08:49)
[2021-05-03] MEDS: Apixaban 5 MG Tab PO SCH ×2 (08:49→20:21)
[2021-05-03] MEDS: Lidocaine 4% 1 each Patch TOP SCH (08:49)
[2021-05-03] MEDS: Metoprolol Succinate 50 MG Tab.ER PO SCH (08:50)
[2021-05-03] MEDS: Tamsulosin 0.4 MG Cap.ER PO SCH (08:50)
[2021-05-03] MEDS: Cholecalciferol (Vitamin D3) 25 MCG Tab PO SCH (08:50)
[2021-05-03] MEDS: LIDOCAINE PATCH TRDERM SCH (20:22)
[2021-05-04] MEDS: Acetaminophen 325 MG Tab PO PRN (04:07)
[2021-05-04] MEDS: Pantoprazole 40 MG Tab.CR PO SCH ×2 (05:28→17:02)
[2021-05-04] MEDS: Tamsulosin 0.4 MG Cap.ER PO SCH (08:48)
[2021-05-04] MEDS: Cholecalciferol (Vitamin D3) 25 MCG Tab PO SCH (08:48)
[2021-05-04] MEDS: predniSONE 5 MG Tab PO SCH (08:48)
[2021-05-04] MEDS: Apixaban 5 MG Tab PO SCH ×2 (08:48→20:52)
[2021-05-04] MEDS: Furosemide 40 MG Tab PO SCH (08:48)
[2021-05-04] MEDS: Lutein/Minerals/Vitamin C/Vitamin E Acetate Cap PO SCH (08:48)
[2021-05-04] MEDS: Rosuvastatin 10 MG Tab PO SCH (08:49)
[2021-05-04] MEDS: Potassium Chloride 10 MEQ Tab.ER PO SCH (08:49)
[2021-05-04] MEDS: Metoprolol Succinate 50 MG Tab.ER PO SCH (08:49)
[2021-05-04] MEDS: Lidocaine 4% 1 each Patch TOP SCH (09:19)
[2021-05-04] MEDS: Menthol/Methyl Salicylate 85 GM Tube TOP SCH ×3 (09:20→20:51)
[2021-05-04] MEDS: Losartan 25 MG Tab PO SCH (09:21)
[2021-05-04] MEDS: LIDOCAINE PATCH TRDERM SCH (20:53)
[2021-05-04] MEDS: Acetaminophen 500 MG Tab PO SCH (20:57)
[2021-05-05] MEDS: Pantoprazole 40 MG Tab.CR PO SCH ×2 (05:10→18:54)
[2021-05-05] MEDS: Acetaminophen 500 MG Tab PO SCH ×3 (05:11→20:27)
[2021-05-05] MEDS: Rosuvastatin 10 MG Tab PO SCH (09:09)
[2021-05-05] MEDS: Potassium Chloride 10 MEQ Tab.ER PO SCH (09:09)
[2021-05-05] MEDS: Tamsulosin 0.4 MG Cap.ER PO SCH (09:09)
[2021-05-05] MEDS: Apixaban 5 MG Tab PO SCH ×2 (09:10→20:27)
[2021-05-05] MEDS: Metoprolol Succinate 50 MG Tab.ER PO SCH (09:10)
[2021-05-05] MEDS: Furosemide 40 MG Tab PO SCH (09:10)
[2021-05-05] MEDS: predniSONE 5 MG Tab PO SCH (09:10)
[2021-05-05] MEDS: Losartan 25 MG Tab PO SCH (09:11)
[2021-05-05] MEDS: Cholecalciferol (Vitamin D3) 25 MCG Tab PO SCH (09:11)
[2021-05-05] MEDS: Lutein/Minerals/Vitamin C/Vitamin E Acetate Cap PO SCH (09:11)
[2021-05-05] MEDS: Lidocaine 4% 1 each Patch TOP SCH (10:25)
[2021-05-05] MEDS: Menthol/Methyl Salicylate 85 GM Tube TOP SCH ×3 (10:30→20:26)
[2021-05-05] MEDS ORDERED: Triamcinolone Acetonide 40 MG/ML 1 ML SDV INJECT ONE (20:00)
--- NOTE | 2021-05-05 20:03 | PCM.PRNOTE ---
- Free Text/Narrative Note: 85-year-old lady requested triamcinolone injection in the bilateral knees secondary to severe knee pain secondary to osteoarthritis. Superior lateral approach used to place 3 mL of 1% lidocaine without epinephrine and 40 mg triamcinolone into each knee. The injection site was identified, marked and cleaned with alcohol pad and povidone iodine white x2. The site was then anesthetized with cold spray. Aspiration was attempted prior to injection and there was no blood return. Each knee was injected without any significant resistance. There was no bleeding or discharge following the procedure. Patient tolerated procedure well.
[2021-05-05] MEDS: LIDOCAINE PATCH TRDERM SCH (20:27)
[2021-05-06] MEDS: Pantoprazole 40 MG Tab.CR PO SCH ×2 (05:14→18:24)
[2021-05-06] MEDS: Acetaminophen 500 MG Tab PO SCH ×3 (05:15→21:05)
[2021-05-06] MEDS: Menthol/Methyl Salicylate 85 GM Tube TOP SCH ×3 (08:47→21:30)
[2021-05-06] MEDS: Lidocaine 4% 1 each Patch TOP SCH (08:47)
[2021-05-06] MEDS: Lutein/Minerals/Vitamin C/Vitamin E Acetate Cap PO SCH (08:56)
[2021-05-06] MEDS: Cholecalciferol (Vitamin D3) 25 MCG Tab PO SCH (08:56)
[2021-05-06] MEDS: Tamsulosin 0.4 MG Cap.ER PO SCH (08:56)
[2021-05-06] MEDS: Rosuvastatin 10 MG Tab PO SCH (08:56)
[2021-05-06] MEDS: Furosemide 40 MG Tab PO SCH (08:56)
[2021-05-06] MEDS: Potassium Chloride 10 MEQ Tab.ER PO SCH (08:56)
[2021-05-06] MEDS: Apixaban 5 MG Tab PO SCH ×2 (08:56→21:05)
[2021-05-06] MEDS: predniSONE 5 MG Tab PO SCH (08:57)
[2021-05-06] MEDS: Losartan 25 MG Tab PO SCH (09:07)
[2021-05-06] MEDS: Metoprolol Succinate 50 MG Tab.ER PO SCH (09:08)
[2021-05-06] MEDS: LIDOCAINE PATCH TRDERM SCH (21:08)
[2021-05-07] MEDS: Acetaminophen 500 MG Tab PO SCH ×3 (04:33→20:42)
[2021-05-07] MEDS: Pantoprazole 40 MG Tab.CR PO SCH ×2 (07:24→17:14)
[2021-05-07] MEDS: predniSONE 5 MG Tab PO SCH (08:53)
[2021-05-07] MEDS: Lidocaine 4% 1 each Patch TOP SCH (08:54)
[2021-05-07] MEDS: Losartan 25 MG Tab PO SCH (08:55)
[2021-05-07] MEDS: Rosuvastatin 10 MG Tab PO SCH (08:55)
[2021-05-07] MEDS: Apixaban 5 MG Tab PO SCH ×2 (08:55→20:43)
[2021-05-07] MEDS: Tamsulosin 0.4 MG Cap.ER PO SCH (08:56)
[2021-05-07] MEDS: Furosemide 40 MG Tab PO SCH (08:56)
[2021-05-07] MEDS: Menthol/Methyl Salicylate 85 GM Tube TOP SCH ×3 (08:56→20:43)
[2021-05-07] MEDS: Cholecalciferol (Vitamin D3) 25 MCG Tab PO SCH (08:57)
[2021-05-07] MEDS: Lutein/Minerals/Vitamin C/Vitamin E Acetate Cap PO SCH (08:57)
[2021-05-07] MEDS: Potassium Chloride 10 MEQ Tab.ER PO SCH (08:57)
[2021-05-07] MEDS: Metoprolol Succinate 50 MG Tab.ER PO SCH (08:58)
[2021-05-07] MEDS: LIDOCAINE PATCH TRDERM SCH (20:42)
[2021-05-08] MEDS: Acetaminophen 500 MG Tab PO SCH ×3 (06:32→20:37)
[2021-05-08] MEDS: Pantoprazole 40 MG Tab.CR PO SCH ×2 (06:33→17:59)
[2021-05-08] MEDS: Tamsulosin 0.4 MG Cap.ER PO SCH (08:36)
[2021-05-08] MEDS: Losartan 25 MG Tab PO SCH (08:36)
[2021-05-08] MEDS: Apixaban 5 MG Tab PO SCH ×2 (08:36→20:37)
[2021-05-08] MEDS: Cholecalciferol (Vitamin D3) 25 MCG Tab PO SCH (08:36)
[2021-05-08] MEDS: Metoprolol Succinate 50 MG Tab.ER PO SCH (08:36)
[2021-05-08] MEDS: Furosemide 40 MG Tab PO SCH (08:36)
[2021-05-08] MEDS: Potassium Chloride 10 MEQ Tab.ER PO SCH (08:37)
[2021-05-08] MEDS: Rosuvastatin 10 MG Tab PO SCH (08:37)
[2021-05-08] MEDS: Lutein/Minerals/Vitamin C/Vitamin E Acetate Cap PO SCH (08:37)
[2021-05-08] MEDS: Menthol/Methyl Salicylate 85 GM Tube TOP SCH ×3 (08:38→20:38)
[2021-05-08] MEDS: predniSONE 5 MG Tab PO SCH (08:38)
[2021-05-08] MEDS: Lidocaine 4% 1 each Patch TOP SCH (08:39)
[2021-05-08] MEDS: LIDOCAINE PATCH TRDERM SCH (20:38)
[2021-05-09] MEDS: Acetaminophen 500 MG Tab PO SCH ×3 (05:39→20:22)
[2021-05-09] MEDS: Pantoprazole 40 MG Tab.CR PO SCH ×2 (05:40→18:06)
[2021-05-09] MEDS: Rosuvastatin 10 MG Tab PO SCH (08:53)
[2021-05-09] MEDS: Menthol/Methyl Salicylate 85 GM Tube TOP SCH ×3 (08:53→20:20)
[2021-05-09] MEDS: Lutein/Minerals/Vitamin C/Vitamin E Acetate Cap PO SCH (08:53)
[2021-05-09] MEDS: Furosemide 40 MG Tab PO SCH (08:53)
[2021-05-09] MEDS: Metoprolol Succinate 50 MG Tab.ER PO SCH (08:53)
[2021-05-09] MEDS: Potassium Chloride 10 MEQ Tab.ER PO SCH (08:53)
[2021-05-09] MEDS: Losartan 25 MG Tab PO SCH (08:54)
[2021-05-09] MEDS: Apixaban 5 MG Tab PO SCH ×2 (08:54→20:23)
[2021-05-09] MEDS: Tamsulosin 0.4 MG Cap.ER PO SCH (08:54)
[2021-05-09] MEDS: Lidocaine 4% 1 each Patch TOP SCH (08:54)
[2021-05-09] MEDS: Cholecalciferol (Vitamin D3) 25 MCG Tab PO SCH (08:55)
[2021-05-09] MEDS: predniSONE 5 MG Tab PO SCH (08:55)
[2021-05-09] MEDS: LIDOCAINE PATCH TRDERM SCH (20:23)
[2021-05-10] MEDS: Acetaminophen 500 MG Tab PO SCH ×3 (04:15→21:33)
[2021-05-10] MEDS: Pantoprazole 40 MG Tab.CR PO SCH ×2 (04:59→17:32)
[2021-05-10] MEDS: predniSONE 5 MG Tab PO SCH (09:11)
[2021-05-10] MEDS: Menthol/Methyl Salicylate 85 GM Tube TOP SCH ×3 (09:11→21:32)
[2021-05-10] MEDS: Lidocaine 4% 1 each Patch TOP SCH (09:11)
[2021-05-10] MEDS: Rosuvastatin 10 MG Tab PO SCH (09:12)
[2021-05-10] MEDS: Furosemide 40 MG Tab PO SCH (09:12)
[2021-05-10] MEDS: Tamsulosin 0.4 MG Cap.ER PO SCH (09:12)
[2021-05-10] MEDS: Apixaban 5 MG Tab PO SCH ×2 (09:12→21:31)
[2021-05-10] MEDS: Cholecalciferol (Vitamin D3) 25 MCG Tab PO SCH (09:12)
[2021-05-10] MEDS: Potassium Chloride 10 MEQ Tab.ER PO SCH (09:13)
[2021-05-10] MEDS: Lutein/Minerals/Vitamin C/Vitamin E Acetate Cap PO SCH (09:13)
[2021-05-10] MEDS: Losartan 25 MG Tab PO SCH (09:15)
[2021-05-10] MEDS: Metoprolol Succinate 50 MG Tab.ER PO SCH (09:16)
[2021-05-10] MEDS: traMADol 50 MG Tab PO SCH (21:30)
[2021-05-10] MEDS: LIDOCAINE PATCH TRDERM SCH (21:43)
[2021-05-11] MEDS: Acetaminophen 500 MG Tab PO SCH ×3 (05:31→21:15)
[2021-05-11] MEDS: Pantoprazole 40 MG Tab.CR PO SCH (07:21)
[2021-05-11] MEDS: Menthol/Methyl Salicylate 85 GM Tube TOP SCH ×3 (08:50→21:15)
[2021-05-11] MEDS: predniSONE 5 MG Tab PO SCH (08:51)
[2021-05-11] MEDS: Lidocaine 4% 1 each Patch TOP SCH (08:51)
[2021-05-11] MEDS: Rosuvastatin 10 MG Tab PO SCH (08:52)
[2021-05-11] MEDS: Potassium Chloride 10 MEQ Tab.ER PO SCH (08:52)
[2021-05-11] MEDS: Apixaban 5 MG Tab PO SCH ×2 (08:52→21:15)
[2021-05-11] MEDS: Furosemide 40 MG Tab PO SCH (08:52)
[2021-05-11] MEDS: Tamsulosin 0.4 MG Cap.ER PO SCH (08:52)
[2021-05-11] MEDS: Cholecalciferol (Vitamin D3) 25 MCG Tab PO SCH (08:53)
[2021-05-11] MEDS: Lutein/Minerals/Vitamin C/Vitamin E Acetate Cap PO SCH (08:53)
[2021-05-11] MEDS: Metoprolol Succinate 50 MG Tab.ER PO SCH (08:53)
[2021-05-11] MEDS: Losartan 25 MG Tab PO SCH (09:09)
[2021-05-11] MEDS: LIDOCAINE PATCH TRDERM SCH (21:16)
[2021-05-11] MEDS: traMADol 50 MG Tab PO SCH (21:21)
[2021-05-12] MEDS: Acetaminophen 500 MG Tab PO SCH ×3 (05:16→20:47)
[2021-05-12] MEDS: predniSONE 5 MG Tab PO SCH (08:47)
[2021-05-12] MEDS: Menthol/Methyl Salicylate 85 GM Tube TOP SCH ×3 (08:48→20:47)
[2021-05-12] MEDS: Apixaban 5 MG Tab PO SCH ×2 (08:49→20:42)
[2021-05-12] MEDS: Lutein/Minerals/Vitamin C/Vitamin E Acetate Cap PO SCH (08:49)
[2021-05-12] MEDS: Potassium Chloride 10 MEQ Tab.ER PO SCH (08:49)
[2021-05-12] MEDS: Tamsulosin 0.4 MG Cap.ER PO SCH (08:50)
[2021-05-12] MEDS: Losartan 25 MG Tab PO SCH (08:50)
[2021-05-12] MEDS: Furosemide 40 MG Tab PO SCH (08:50)
[2021-05-12] MEDS: Rosuvastatin 10 MG Tab PO SCH (08:50)
[2021-05-12] MEDS: Metoprolol Succinate 50 MG Tab.ER PO SCH (08:51)
[2021-05-12] MEDS: Cholecalciferol (Vitamin D3) 25 MCG Tab PO SCH (08:51)
[2021-05-12] MEDS: Lidocaine 4% 1 each Patch TOP SCH (08:51)
[2021-05-12] MEDS: traMADol 50 MG Tab PO SCH (20:42)
[2021-05-12] MEDS: LIDOCAINE PATCH TRDERM SCH (20:48)
[2021-05-13] MEDS: Acetaminophen 500 MG Tab PO SCH ×3 (05:26→20:01)
[2021-05-13] MEDS: Potassium Chloride 10 MEQ Tab.ER PO SCH (09:34)
[2021-05-13] MEDS: Lutein/Minerals/Vitamin C/Vitamin E Acetate Cap PO SCH (09:35)
[2021-05-13] MEDS: Apixaban 5 MG Tab PO SCH ×2 (09:35→19:59)
[2021-05-13] MEDS: Rosuvastatin 10 MG Tab PO SCH (09:36)
[2021-05-13] MEDS: Cholecalciferol (Vitamin D3) 25 MCG Tab PO SCH (09:36)
[2021-05-13] MEDS: Furosemide 40 MG Tab PO SCH (09:36)
[2021-05-13] MEDS: Metoprolol Succinate 50 MG Tab.ER PO SCH (09:40)
[2021-05-13] MEDS: predniSONE 5 MG Tab PO SCH (09:40)
[2021-05-13] MEDS: Menthol/Methyl Salicylate 85 GM Tube TOP SCH ×3 (09:41→19:59)
[2021-05-13] MEDS: Losartan 25 MG Tab PO SCH (09:41)
[2021-05-13] MEDS: Tamsulosin 0.4 MG Cap.ER PO SCH (09:41)
[2021-05-13] MEDS: Lidocaine 4% 1 each Patch TOP SCH (09:42)
[2021-05-13] MEDS: LIDOCAINE PATCH TRDERM SCH (20:01)
[2021-05-13] MEDS: traMADol 50 MG Tab PO SCH (20:02)
[2021-05-14] MEDS: Acetaminophen 500 MG Tab PO SCH ×3 (04:35→20:26)
[2021-05-14] MEDS: predniSONE 5 MG Tab PO SCH (08:31)
[2021-05-14] MEDS: Potassium Chloride 10 MEQ Tab.ER PO SCH (08:32)
[2021-05-14] MEDS: Furosemide 40 MG Tab PO SCH (08:34)
[2021-05-14] MEDS: Losartan 25 MG Tab PO SCH (08:41)
[2021-05-14] MEDS: Apixaban 5 MG Tab PO SCH ×2 (08:42→20:24)
[2021-05-14] MEDS: Rosuvastatin 10 MG Tab PO SCH (08:42)
[2021-05-14] MEDS: Cholecalciferol (Vitamin D3) 25 MCG Tab PO SCH (08:43)
[2021-05-14] MEDS: Lutein/Minerals/Vitamin C/Vitamin E Acetate Cap PO SCH (08:43)
[2021-05-14] MEDS: Tamsulosin 0.4 MG Cap.ER PO SCH (08:44)
[2021-05-14] MEDS: Metoprolol Succinate 50 MG Tab.ER PO SCH (08:46)
[2021-05-14] MEDS: Lidocaine 4% 1 each Patch TOP SCH (08:47)
[2021-05-14] MEDS: Menthol/Methyl Salicylate 85 GM Tube TOP SCH ×3 (08:47→20:24)
--- NOTE | 2021-05-14 08:59 | PCM.PN ---
- General Info Date of Service: 05/14/21 Admission Dx/Problem (Free Text): The nurses report that the patient does walk over the weekend. I would see the patient and she is doing well. She says she feels weak but other that she has no concerns. She denies fevers, chills, cough, chest pain or leg swelling. At the end of our conversation she says she's having trouble sleeping lately to try something to help her sleep. - Patient Data Vitals - Most Recent: Last Vital Signs Temp 97.1 F 05/14/21 08:00 Pulse 84 05/14/21 08:46 Resp 20 05/14/21 08:00 BP 148/79 H 05/14/21 08:46 Pulse Ox 98 05/14/21 08:00 Weight - Most Recent: 154 lb 11.2 oz Med Orders - Current: Current Medications Acetaminophen (Acetaminophen 500 Mg Tab) 1,000 mg PO Q8H [facility] Last Admin: 05/14/21 04:35 Dose: 1,000 mg Documented by: Apixaban (Apixaban 5 Mg Tab) 5 mg PO BID [facility] Last Admin: 05/14/21 08:42 Dose: 5 mg Documented by: Cholecalciferol (Cholecalciferol (Vitamin D3) 25 Mcg Tab) 50 mcg PO DAILY [facility] Last Admin: 05/14/21 08:43 Dose: 50 mcg Documented by: Furosemide (Furosemide 40 Mg Tab) 40 mg PO DAILY [facility] Last Admin: 05/14/21 08:34 Dose: 40 mg Documented by: Lidocaine (Lidocaine 4% 1 Each Patch) 2 each TOP DAILY [facility] Last Admin: 05/14/21 08:47 Dose: 2 each Documented by: Losartan Potassium (Losartan 25 Mg Tab) 25 mg PO DAILY [facility] Last Admin: 05/14/21 08:41 Dose: 25 mg Documented by: Methyl Salicylate (Menthol/Methyl Salicylate 85 Gm Tube) 0 gm TOP TID [facility] Last Admin: 05/14/21 08:47 Dose: 1 applic Documented by: Metoprolol Succinate (Metoprolol Succinate 50 Mg Tab.Er) 50 mg PO DAILY [facility] Last Admin: 05/14/21 08:46 Dose: 50 mg Documented by: Miscellaneous Information (Lidocaine Patch) 2 ea TRDERM BEDTIME [facility] Last Admin: 05/13/21 20:01 Dose: 2 ea Documented by: Potassium Chloride (Potassium Chloride 10 Meq Tab.Er) 30 meq PO DAILY [facility] Last Admin: 05/14/21 08:32 Dose: 30 meq Documented by: Prednisone (Prednisone 5 Mg Tab) 5 mg PO WITHBREAKFAST [facility] Last Admin: 05/14/21 08:31 Dose: 5 mg Documented by: Rosuvastatin Calcium (Rosuvastatin 10 Mg Tab) 10 mg PO DAILY [facility] Last Admin: 05/14/21 08:42 Dose: 10 mg Documented by: Tamsulosin HCl (Tamsulosin 0.4 Mg Cap.Er) 0.4 mg PO DAILY [facility] Last Admin: 05/14/21 08:44 Dose: 0.4 mg Documented by: Tramadol HCl (Tramadol 50 Mg Tab) 50 mg PO BEDTIME [facility] Last Admin: 05/13/21 20:02 Dose: 50 mg Documented by: Vit C/Vit E/Zinc/Copper/Lutein (Lutein/Minerals/Vitamin C/Vitamin E Acetate Cap) 1 each PO DAILY [facility] Last Admin: 05/14/21 08:43 Dose: 1 each Documented by: Discontinued Medications Acetaminophen (Acetaminophen 325 Mg Tab) 650 mg PO Q6H PRN PRN Reason: Pain/Fever Last Admin: 05/04/21 04:07 Dose: 650 mg Documented by: Acetaminophen (Acetaminophen 325 Mg Tab) Confirm Administered Dose 650 mg .ROUTE .STK-MED ONE Stop: 05/03/21 03:00 Last Admin: 05/03/21 04:42 Dose: Not Given Documented by: Lidocaine HCl (Lidocaine 1% 5 Ml Sdv) 3 ml INJECT .STK-MED ONE Stop: 05/05/21 20:01 Pantoprazole Sodium (Pantoprazole 40 Mg Tab.Cr) 40 mg PO BID@06,17 [facility] Last Admin: 05/11/21 07:21 Dose: Not Given Documented by: Triamcinolone Acetonide (Triamcinolone Acetonide 40 Mg/Ml 1 Ml Sdv) 40 mg INJECT .STK-MED ONE Stop: 05/05/21 20:01 - Exam General: Alert, Oriented, Severe Distress Neck: Supple Lungs: Clear to Auscultation, Normal Respiratory Effort Cardiovascular: Regular Rate, Regular Rhythm, No Murmurs Extremities: No Pedal Edema Sepsis Event Note - Evaluation Sepsis Screening Result: No Definite Risk - Focused Exam Vital Signs: Vital Signs Temp Pulse Pulse Resp BP BP Pulse Ox 05/14/21 08:46 84 148/79 H 05/14/21 08:41 148/79 H 05/14/21 08:00 97.1 F 84 20 148/79 H 98 - Problem List & Annotations (1) Atrial fibrillation SNOMED Code(s): 59671356 Code(s): I48.91 - UNSPECIFIED ATRIAL FIBRILLATION Status: Acute Current Visit: Yes (2) Weakness SNOMED Code(s): 31260219 Code(s): R53.1 - WEAKNESS Status: Acute Current Visit: Yes (3) Congestive heart failure SNOMED Code(s): 34665182 Code(s): I50.9 - HEART FAILURE, UNSPECIFIED Status: Chronic Current Visit: Yes (4) Coronary artery disease SNOMED Code(s): 42919741 Code(s): I25.10 - ATHSCL HEART DISEASE OF [place] CORONARY ARTERY W/O ANG PCTRS Status: Chronic Current Visit: Yes (5) Dermatomyositis SNOMED Code(s): 382869900 Code(s): M33.90 - DERMATOPOLYMYOSITIS, UNSP, ORGAN INVOLVEMENT UNSPECIFIED Status: Chronic Current Visit: Yes (6) Hyperlipidemia SNOMED Code(s): 85894783 Code(s): E78.5 - HYPERLIPIDEMIA, UNSPECIFIED Status: Chronic Current Visit: Yes (7) Hypertension SNOMED Code(s): 90100837 Code(s): I10 - ESSENTIAL (PRIMARY) HYPERTENSION Status: Chronic Current Visit: Yes (8) Pulmonary fibrosis SNOMED Code(s): 20797472 Code(s): J84.10 - PULMONARY FIBROSIS, UNSPECIFIED Status: Chronic Current Visit: Yes (9) S/P TAVR (transcatheter aortic valve replacement) SNOMED Code(s): 7722883530885, 518184609, 258669225, 9744378144754 Code(s): Z95.2 - PRESENCE OF PROSTHETIC HEART VALVE Status: Chronic Current Visit: Yes - Problem List Review Problem List Initiated/Reviewed/Updated: Yes - Plan Plan:: 1. Encourage the patient to walk at least 4 times a day and if more if she can to get strong so she can be ready to go home when that time comes. 2. Try some 0.5 mg Remeron at at bedtime for sleep. She'll let the nurses it's not helping.
[2021-05-14] MEDS: LIDOCAINE PATCH TRDERM SCH (20:25)
[2021-05-14] MEDS: Mirtazapine 15 MG Tab PO SCH (20:55)
[2021-05-14] MEDS: traMADol 50 MG Tab PO SCH (20:55)
[2021-05-15] MEDS: Acetaminophen 500 MG Tab PO SCH ×3 (04:13→20:37)
[2021-05-15] MEDS: predniSONE 5 MG Tab PO SCH (09:09)
[2021-05-15] MEDS: Menthol/Methyl Salicylate 85 GM Tube TOP SCH ×3 (09:30→20:35)
[2021-05-15] MEDS: Lidocaine 4% 1 each Patch TOP SCH (09:31)
[2021-05-15] MEDS: Cholecalciferol (Vitamin D3) 25 MCG Tab PO SCH (09:32)
[2021-05-15] MEDS: Furosemide 40 MG Tab PO SCH (09:32)
[2021-05-15] MEDS: Lutein/Minerals/Vitamin C/Vitamin E Acetate Cap PO SCH (09:33)
[2021-05-15] MEDS: Potassium Chloride 10 MEQ Tab.ER PO SCH (09:33)
[2021-05-15] MEDS: Rosuvastatin 10 MG Tab PO SCH (09:34)
[2021-05-15] MEDS: Tamsulosin 0.4 MG Cap.ER PO SCH (09:35)
[2021-05-15] MEDS: Losartan 25 MG Tab PO SCH (09:37)
[2021-05-15] MEDS: Apixaban 5 MG Tab PO SCH ×2 (09:39→20:35)
[2021-05-15] MEDS: Metoprolol Succinate 50 MG Tab.ER PO SCH (09:40)
[2021-05-15] MEDS: Mirtazapine 15 MG Tab PO SCH (20:35)
[2021-05-15] MEDS: LIDOCAINE PATCH TRDERM SCH (20:36)
[2021-05-15] MEDS: traMADol 50 MG Tab PO SCH (20:37)
[2021-05-16] MEDS: Acetaminophen 500 MG Tab PO SCH ×3 (04:12→21:55)
[2021-05-16] MEDS: predniSONE 5 MG Tab PO SCH (09:04)
[2021-05-16] MEDS: Cholecalciferol (Vitamin D3) 25 MCG Tab PO SCH (09:04)
[2021-05-16] MEDS: Potassium Chloride 10 MEQ Tab.ER PO SCH (09:05)
[2021-05-16] MEDS: Lidocaine 4% 1 each Patch TOP SCH (09:05)
[2021-05-16] MEDS: Lutein/Minerals/Vitamin C/Vitamin E Acetate Cap PO SCH (09:06)
[2021-05-16] MEDS: Apixaban 5 MG Tab PO SCH ×2 (09:06→21:55)
[2021-05-16] MEDS: Tamsulosin 0.4 MG Cap.ER PO SCH (09:06)
[2021-05-16] MEDS: Menthol/Methyl Salicylate 85 GM Tube TOP SCH ×3 (09:07→21:56)
[2021-05-16] MEDS: Furosemide 40 MG Tab PO SCH (09:09)
[2021-05-16] MEDS: Rosuvastatin 10 MG Tab PO SCH (09:09)
[2021-05-16] MEDS: Metoprolol Succinate 50 MG Tab.ER PO SCH (10:57)
[2021-05-16] MEDS: Losartan 25 MG Tab PO SCH (11:06)
[2021-05-16] MEDS: traMADol 50 MG Tab PO SCH (21:55)
[2021-05-16] MEDS: Mirtazapine 15 MG Tab PO SCH (21:55)
[2021-05-16] MEDS: LIDOCAINE PATCH TRDERM SCH (21:56)
[2021-05-17] MEDS: Acetaminophen 500 MG Tab PO SCH ×3 (04:52→20:32)
[2021-05-17] MEDS: Rosuvastatin 10 MG Tab PO SCH (08:12)
[2021-05-17] MEDS: Potassium Chloride 10 MEQ Tab.ER PO SCH (08:12)
[2021-05-17] MEDS: Tamsulosin 0.4 MG Cap.ER PO SCH (08:12)
[2021-05-17] MEDS: predniSONE 5 MG Tab PO SCH (08:12)
[2021-05-17] MEDS: Losartan 25 MG Tab PO SCH (08:12)
[2021-05-17] MEDS: Cholecalciferol (Vitamin D3) 25 MCG Tab PO SCH (08:12)
[2021-05-17] MEDS: Furosemide 40 MG Tab PO SCH (08:12)
[2021-05-17] MEDS: Apixaban 5 MG Tab PO SCH ×2 (08:12→20:30)
[2021-05-17] MEDS: Menthol/Methyl Salicylate 85 GM Tube TOP SCH ×3 (08:12→20:31)
[2021-05-17] MEDS: Lutein/Minerals/Vitamin C/Vitamin E Acetate Cap PO SCH (08:13)
[2021-05-17] MEDS: Lidocaine 4% 1 each Patch TOP SCH (08:13)
[2021-05-17] MEDS: Metoprolol Succinate 50 MG Tab.ER PO SCH (08:14)
--- NOTE | 2021-05-17 16:50 | CR ---
CHEST TWO VIEWS INDICATION: Rule out pneumonia. FINDINGS: AP and lateral views of the chest 05/17/21 were compared with 10/16/20 and reveal the heart to be enlarged in appearance emphasized by the AP positioning and perhaps relatively decreased inspiration. The aorta is calcified in the arch area. There appears to be some infiltrate in the right mid lung field, likely in the right upper lobe compatible with patchy pneumonia. Heavy markings are scattered about the lungs which may be on the basis of areas of fibrosis but appear to be somewhat emphasized, raising question of additional pulmonary vascular congestion. Heavy markings at the left lower lobe raise the question of additional patchy alveolar infiltration in that area. IMPRESSION: Areas of patchy alveolar infiltration right mid lung field and area of the left lower lobe are suspected with interstitial changes which may represent fibrosis, although additional infection in the interstitium or even lung edema, cannot be excluded. MTDD
[2021-05-17] MEDS: Mirtazapine 15 MG Tab PO SCH (20:32)
[2021-05-17] MEDS: LIDOCAINE PATCH TRDERM SCH (20:33)
[2021-05-17] MEDS: traMADol 50 MG Tab PO SCH (21:07)
[2021-05-18] MEDS: Acetaminophen 500 MG Tab PO SCH ×3 (05:26→20:58)
--- NOTE | 2021-05-18 08:54 | PCM.PN ---
- General Info Date of Service: 05/18/21 Admission Dx/Problem (Free Text): The patient reported to the nurse that she is having some shortness of breath. She says she has a bit of a cough. She has a history of CHF. No fevers, chills or chest pain. - Patient Data Vitals - Most Recent: Last Vital Signs Temp 97.0 F 05/17/21 08:00 Pulse 83 05/17/21 08:14 Resp 18 05/17/21 08:00 BP 150/66 H 05/17/21 08:14 Pulse Ox 93 L 05/17/21 08:00 Weight - Most Recent: 154 lb 12.8 oz I&O - Last 24 Hours: Intake & Output 05/17/21 05/18/21 05/18/21 22:59 06:59 14:59 Intake Total 240 Balance 240 Med Orders - Current: Current Medications Acetaminophen (Acetaminophen 500 Mg Tab) 1,000 mg PO Q8H [facility] Last Admin: 05/18/21 05:26 Dose: 1,000 mg Documented by: Amoxicillin/Clavulanate Potassium (Amoxicillin/Clavulanate K 500-125 Mg Tab) 1 tab PO TID [facility] Stop: 05/25/21 09:01 Apixaban (Apixaban 5 Mg Tab) 5 mg PO BID [facility] Last Admin: 05/17/21 20:30 Dose: 5 mg Documented by: Azithromycin (Azithromycin 250 Mg Tab) 250 mg PO DAILY [facility] Stop: 05/23/21 09:01 Cholecalciferol (Cholecalciferol (Vitamin D3) 25 Mcg Tab) 50 mcg PO DAILY [facility] Last Admin: 05/17/21 08:12 Dose: 50 mcg Documented by: Furosemide (Furosemide 40 Mg Tab) 40 mg PO DAILY [facility] Last Admin: 05/17/21 08:12 Dose: 40 mg Documented by: Lidocaine (Lidocaine 4% 1 Each Patch) 2 each TOP DAILY [facility] Last Admin: 05/17/21 08:13 Dose: 2 each Documented by: Losartan Potassium (Losartan 25 Mg Tab) 25 mg PO DAILY [facility] Last Admin: 05/17/21 08:12 Dose: 25 mg Documented by: Methyl Salicylate (Menthol/Methyl Salicylate 85 Gm Tube) 0 gm TOP TID [facility] Last Admin: 05/17/21 20:31 Dose: 1 applic Documented by: Metoprolol Succinate (Metoprolol Succinate 50 Mg Tab.Er) 50 mg PO DAILY [facility] Last Admin: 05/17/21 08:14 Dose: 50 mg Documented by: Mirtazapine (Mirtazapine 15 Mg Tab) 7.5 mg PO BEDTIME [facility] Last Admin: 05/17/21 20:32 Dose: 7.5 mg Documented by: Miscellaneous Information (Lidocaine Patch) 2 ea TRDERM BEDTIME [facility] Last Admin: 05/17/21 20:33 Dose: 2 ea Documented by: Potassium Chloride (Potassium Chloride 10 Meq Tab.Er) 30 meq PO DAILY [facility] Last Admin: 05/17/21 08:12 Dose: 30 meq Documented by: Prednisone (Prednisone 5 Mg Tab) 5 mg PO WITHBREAKFAST [facility] Last Admin: 05/17/21 08:12 Dose: 5 mg Documented by: Rosuvastatin Calcium (Rosuvastatin 10 Mg Tab) 10 mg PO DAILY [facility] Last Admin: 05/17/21 08:12 Dose: 10 mg Documented by: Tamsulosin HCl (Tamsulosin 0.4 Mg Cap.Er) 0.4 mg PO DAILY [facility] Last Admin: 05/17/21 08:12 Dose: 0.4 mg Documented by: Tramadol HCl (Tramadol 50 Mg Tab) 50 mg PO BEDTIME [facility] Last Admin: 05/17/21 21:07 Dose: 50 mg Documented by: Vit C/Vit E/Zinc/Copper/Lutein (Lutein/Minerals/Vitamin C/Vitamin E Acetate Cap) 1 each PO DAILY [facility] Last Admin: 05/17/21 08:13 Dose: 1 each Documented by: Discontinued Medications Acetaminophen (Acetaminophen 325 Mg Tab) 650 mg PO Q6H PRN PRN Reason: Pain/Fever Last Admin: 05/04/21 04:07 Dose: 650 mg Documented by: Acetaminophen (Acetaminophen 325 Mg Tab) Confirm Administered Dose 650 mg .ROUTE .STK-MED ONE Stop: 05/03/21 03:00 Last Admin: 05/03/21 04:42 Dose: Not Given Documented by: Lidocaine HCl (Lidocaine 1% 5 Ml Sdv) 3 ml INJECT .STK-MED ONE Stop: 05/05/21 20:01 Pantoprazole Sodium (Pantoprazole 40 Mg Tab.Cr) 40 mg PO BID@, [facility] Last Admin: 05/11/21 07:21 Dose: Not Given Documented by: Triamcinolone Acetonide (Triamcinolone Acetonide 40 Mg/Ml 1 Ml Sdv) 40 mg INJECT .STK-MED ONE Stop: 05/05/21 20:01 - Exam General: Alert, Oriented, Cooperative Lungs: Normal Respiratory Effort, Crackles Extremities: No Pedal Edema Sepsis Event Note - Evaluation Sepsis Screening Result: No Definite Risk - Problem List & Annotations (1) Atrial fibrillation SNOMED Code(s): 31152266 Code(s): I48.91 - UNSPECIFIED ATRIAL FIBRILLATION Status: Acute Current Visit: Yes (2) Weakness SNOMED Code(s): 93371440 Code(s): R53.1 - WEAKNESS Status: Acute Current Visit: Yes (3) Congestive heart failure SNOMED Code(s): 65504843 Code(s): I50.9 - HEART FAILURE, UNSPECIFIED Status: Chronic Current Visit: Yes (4) Coronary artery disease SNOMED Code(s): 38608821 Code(s): I25.10 - ATHSCL HEART DISEASE OF [place] CORONARY ARTERY W/O ANG PCTRS Status: Chronic Current Visit: Yes (5) Dermatomyositis SNOMED Code(s): 255248809 Code(s): M33.90 - DERMATOPOLYMYOSITIS, UNSP, ORGAN INVOLVEMENT UNSPECIFIED Status: Chronic Current Visit: Yes (6) Hyperlipidemia SNOMED Code(s): 60564950 Code(s): E78.5 - HYPERLIPIDEMIA, UNSPECIFIED Status: Chronic Current Visit: Yes (7) Hypertension SNOMED Code(s): 54923389 Code(s): I10 - ESSENTIAL (PRIMARY) HYPERTENSION Status: Chronic Current Visit: Yes (8) Pulmonary fibrosis SNOMED Code(s): 92326142 Code(s): J84.10 - PULMONARY FIBROSIS, UNSPECIFIED Status: Chronic Current Visit: Yes (9) S/P TAVR (transcatheter aortic valve replacement) SNOMED Code(s): 5608990242613, 306706343, 691364736, 4362375860246 Code(s): Z95.2 - PRESENCE OF PROSTHETIC HEART VALVE Status: Chronic Current Visit: Yes (10) Pneumonia SNOMED Code(s): 107819091 Code(s): J18.9 - PNEUMONIA, UNSPECIFIED ORGANISM Status: Acute Current Visit: Yes - Problem List Review Problem List Initiated/Reviewed/Updated: Yes - My Orders Last 24 Hours: My Active Orders 05/18/21 08:52 CBC WITH AUTO DIFF [HEME] Routine 05/18/21 09:00 Amoxicillin/Clavulanate K [Augmentin 500 MG\125 MG] 1 tab PO TID Azithromycin [Zithromax] 250 mg PO DAILY - Plan Plan:: 1. Bentyl 500 3 times daily and Zithromax 2 today then 1 a day for 4 days. 2. Chest x-ray showed little infiltrates bilateral. These may have been there before but hard to know. 3. CBC/BNP
[2021-05-18] MEDS: predniSONE 5 MG Tab PO SCH (08:56)
[2021-05-18] MEDS: Furosemide 40 MG Tab PO SCH (08:57)
[2021-05-18] MEDS: Potassium Chloride 10 MEQ Tab.ER PO SCH (08:57)
[2021-05-18] MEDS: Apixaban 5 MG Tab PO SCH ×2 (08:57→20:58)
[2021-05-18] MEDS: Tamsulosin 0.4 MG Cap.ER PO SCH (08:58)
[2021-05-18] MEDS: Cholecalciferol (Vitamin D3) 25 MCG Tab PO SCH (08:58)
[2021-05-18] MEDS: Metoprolol Succinate 50 MG Tab.ER PO SCH (08:58)
[2021-05-18] MEDS: Lutein/Minerals/Vitamin C/Vitamin E Acetate Cap PO SCH (08:59)
[2021-05-18] MEDS: Losartan 25 MG Tab PO SCH (08:59)
[2021-05-18] MEDS: Lidocaine 4% 1 each Patch TOP SCH (09:00)
[2021-05-18] MEDS ORDERED: Azithromycin 500 MG Tab PO ONE (09:00)
[2021-05-18] MEDS: Amoxicillin/Clavulanate K 500-125 MG Tab PO SCH ×3 (09:06→20:57)
[2021-05-18] MEDS: Rosuvastatin 10 MG Tab PO SCH (09:06)
[2021-05-18] MEDS: Menthol/Methyl Salicylate 85 GM Tube TOP SCH ×3 (09:07→20:54)
[2021-05-18] MEDS: Mirtazapine 15 MG Tab PO SCH (20:58)
[2021-05-18] MEDS: traMADol 50 MG Tab PO SCH (20:59)
[2021-05-18] MEDS: LIDOCAINE PATCH TRDERM SCH (20:59)
[2021-05-19] MEDS: Acetaminophen 500 MG Tab PO SCH ×3 (04:48→20:22)
[2021-05-19] MEDS: predniSONE 5 MG Tab PO SCH (07:53)
[2021-05-19] MEDS: Cholecalciferol (Vitamin D3) 25 MCG Tab PO SCH (08:44)
[2021-05-19] MEDS: Tamsulosin 0.4 MG Cap.ER PO SCH (08:44)
[2021-05-19] MEDS: Lidocaine 4% 1 each Patch TOP SCH (08:44)
[2021-05-19] MEDS: Potassium Chloride 10 MEQ Tab.ER PO SCH (08:44)
[2021-05-19] MEDS: Rosuvastatin 10 MG Tab PO SCH (08:44)
[2021-05-19] MEDS: Menthol/Methyl Salicylate 85 GM Tube TOP SCH ×3 (08:45→20:21)
[2021-05-19] MEDS: Metoprolol Succinate 50 MG Tab.ER PO SCH (08:45)
[2021-05-19] MEDS: Azithromycin 250 MG Tab PO SCH (08:45)
[2021-05-19] MEDS: Furosemide 40 MG Tab PO SCH (08:46)
[2021-05-19] MEDS: Lutein/Minerals/Vitamin C/Vitamin E Acetate Cap PO SCH (08:46)
[2021-05-19] MEDS: Apixaban 5 MG Tab PO SCH ×2 (08:46→20:21)
[2021-05-19] MEDS: Losartan 25 MG Tab PO SCH (08:46)
[2021-05-19] MEDS: Amoxicillin/Clavulanate K 500-125 MG Tab PO SCH ×2 (08:46→20:20)
[2021-05-19] MEDS: LIDOCAINE PATCH TRDERM SCH (20:22)
[2021-05-19] MEDS: Mirtazapine 15 MG Tab PO SCH (20:22)
[2021-05-19] MEDS: traMADol 50 MG Tab PO SCH (20:23)
[2021-05-20] MEDS: Acetaminophen 500 MG Tab PO SCH ×3 (05:26→20:40)
[2021-05-20] MEDS ORDERED: Bamlanivimab 700 MG, ETESEVIMAB 1,400 MG in Sodium Chloride 0.9% 100 ML IV ONE (08:17)
[2021-05-20] MEDS ORDERED: Sodium Chloride 0.9% 10 ML Syringe FLUSH SCH (08:30)
[2021-05-20] MEDS: Lidocaine 4% 1 each Patch TOP SCH (08:52)
[2021-05-20] MEDS: Azithromycin 250 MG Tab PO SCH (08:53)
[2021-05-20] MEDS: Potassium Chloride 10 MEQ Tab.ER PO SCH (08:53)
[2021-05-20] MEDS: Lutein/Minerals/Vitamin C/Vitamin E Acetate Cap PO SCH (08:53)
[2021-05-20] MEDS: Menthol/Methyl Salicylate 85 GM Tube TOP SCH ×3 (08:53→20:39)
[2021-05-20] MEDS: predniSONE 5 MG Tab PO SCH (08:54)
[2021-05-20] MEDS: Tamsulosin 0.4 MG Cap.ER PO SCH (08:54)
[2021-05-20] MEDS: Amoxicillin/Clavulanate K 500-125 MG Tab PO SCH ×2 (08:54→20:39)
[2021-05-20] MEDS: Furosemide 40 MG Tab PO SCH (08:54)
[2021-05-20] MEDS: Metoprolol Succinate 50 MG Tab.ER PO SCH (08:54)
[2021-05-20] MEDS: Cholecalciferol (Vitamin D3) 25 MCG Tab PO SCH (08:54)
[2021-05-20] MEDS: Rosuvastatin 10 MG Tab PO SCH (08:55)
[2021-05-20] MEDS: Losartan 25 MG Tab PO SCH (08:55)
[2021-05-20] MEDS: Apixaban 5 MG Tab PO SCH ×2 (08:55→20:39)
[2021-05-20] MEDS: Mirtazapine 15 MG Tab PO SCH (20:39)
[2021-05-20] MEDS: LIDOCAINE PATCH TRDERM SCH (20:40)
[2021-05-20] MEDS: traMADol 50 MG Tab PO SCH (21:28)
[2021-05-21] MEDS: Acetaminophen 500 MG Tab PO SCH ×3 (05:02→20:21)
[2021-05-21] MEDS: Menthol/Methyl Salicylate 85 GM Tube TOP SCH ×3 (09:13→20:20)
[2021-05-21] MEDS: Lidocaine 4% 1 each Patch TOP SCH (09:13)
[2021-05-21] MEDS: Losartan 25 MG Tab PO SCH (09:14)
[2021-05-21] MEDS: Tamsulosin 0.4 MG Cap.ER PO SCH (09:14)
[2021-05-21] MEDS: Rosuvastatin 10 MG Tab PO SCH (09:14)
[2021-05-21] MEDS: Apixaban 5 MG Tab PO SCH ×2 (09:14→20:20)
[2021-05-21] MEDS: Amoxicillin/Clavulanate K 500-125 MG Tab PO SCH ×2 (09:14→20:20)
[2021-05-21] MEDS: Potassium Chloride 10 MEQ Tab.ER PO SCH (09:14)
[2021-05-21] MEDS: predniSONE 5 MG Tab PO SCH (09:15)
[2021-05-21] MEDS: Lutein/Minerals/Vitamin C/Vitamin E Acetate Cap PO SCH (09:15)
[2021-05-21] MEDS: Cholecalciferol (Vitamin D3) 25 MCG Tab PO SCH (09:15)
[2021-05-21] MEDS: Furosemide 40 MG Tab PO SCH (09:15)
[2021-05-21] MEDS: Azithromycin 250 MG Tab PO SCH (09:16)
[2021-05-21] MEDS: Metoprolol Succinate 50 MG Tab.ER PO SCH (09:16)
[2021-05-21] MEDS: Mirtazapine 15 MG Tab PO SCH (20:20)
[2021-05-21] MEDS: LIDOCAINE PATCH TRDERM SCH (20:20)
[2021-05-21] MEDS: traMADol 50 MG Tab PO SCH (22:08)
[2021-05-22] MEDS: Acetaminophen 500 MG Tab PO SCH ×3 (05:06→20:24)
[2021-05-22] MEDS: Lidocaine 4% 1 each Patch TOP SCH (08:48)
[2021-05-22] MEDS: Apixaban 5 MG Tab PO SCH ×2 (08:49→20:23)
[2021-05-22] MEDS: Losartan 25 MG Tab PO SCH (08:49)
[2021-05-22] MEDS: Potassium Chloride 10 MEQ Tab.ER PO SCH (08:49)
[2021-05-22] MEDS: Metoprolol Succinate 50 MG Tab.ER PO SCH (08:50)
[2021-05-22] MEDS: Azithromycin 250 MG Tab PO SCH (08:50)
[2021-05-22] MEDS: Furosemide 40 MG Tab PO SCH (08:50)
[2021-05-22] MEDS: Tamsulosin 0.4 MG Cap.ER PO SCH (08:50)
[2021-05-22] MEDS: predniSONE 5 MG Tab PO SCH (08:50)
[2021-05-22] MEDS: Rosuvastatin 10 MG Tab PO SCH (08:50)
[2021-05-22] MEDS: Cholecalciferol (Vitamin D3) 25 MCG Tab PO SCH (08:50)
[2021-05-22] MEDS: Menthol/Methyl Salicylate 85 GM Tube TOP SCH ×3 (08:51→20:23)
[2021-05-22] MEDS: Amoxicillin/Clavulanate K 500-125 MG Tab PO SCH ×2 (08:51→20:22)
[2021-05-22] MEDS: Lutein/Minerals/Vitamin C/Vitamin E Acetate Cap PO SCH (08:52)
[2021-05-22] MEDS: Mirtazapine 15 MG Tab PO SCH (20:23)
[2021-05-22] MEDS: LIDOCAINE PATCH TRDERM SCH (20:24)
[2021-05-22] MEDS: traMADol 50 MG Tab PO SCH (20:25)
[2021-05-23] MEDS: Acetaminophen 500 MG Tab PO SCH ×3 (05:17→20:56)
[2021-05-23] MEDS: predniSONE 5 MG Tab PO SCH (07:57)
[2021-05-23] MEDS: Lidocaine 4% 1 each Patch TOP SCH (07:58)
[2021-05-23] MEDS: Amoxicillin/Clavulanate K 500-125 MG Tab PO SCH ×2 (07:59→20:55)
[2021-05-23] MEDS: Losartan 25 MG Tab PO SCH (08:00)
[2021-05-23] MEDS: Apixaban 5 MG Tab PO SCH ×2 (08:01→20:55)
[2021-05-23] MEDS: Menthol/Methyl Salicylate 85 GM Tube TOP SCH ×3 (08:01→20:57)
[2021-05-23] MEDS: Tamsulosin 0.4 MG Cap.ER PO SCH (08:01)
[2021-05-23] MEDS: Rosuvastatin 10 MG Tab PO SCH (08:01)
[2021-05-23] MEDS: Furosemide 40 MG Tab PO SCH (08:02)
[2021-05-23] MEDS: Potassium Chloride 10 MEQ Tab.ER PO SCH (08:02)
[2021-05-23] MEDS: Cholecalciferol (Vitamin D3) 25 MCG Tab PO SCH (08:04)
[2021-05-23] MEDS: Metoprolol Succinate 50 MG Tab.ER PO SCH (08:04)
[2021-05-23] MEDS ORDERED: Dexamethasone 4 MG/ML SDV IVPUSH SCH (09:00)
[2021-05-23] MEDS: Lutein/Minerals/Vitamin C/Vitamin E Acetate Cap PO SCH (10:13)
[2021-05-23] MEDS: Dexamethasone 2 MG Tab PO SCH (10:14)
--- NOTE | 2021-05-23 10:51 | PCM.PN ---
- General Info Date of Service: 05/23/21 Subjective Update: Gina desaturated 83% last night and had episode were she got weak and shaking while nursing was trying to get her to the bathroom, placed on oxygen came up to 93% on simple mask. She denies any pain, chest pain. Takes Prednisone for pulmonary fibrosis but states she supposed to use oxygen as needed but doesn't. No fevers. Decreased appetite. No diarrhea. No abdominal pain. She had declined monoclonal ab on Sunday for Covid, she is not a candidate for Remdesivir. - Patient Data Vitals - Most Recent: Last Vital Signs Temp 97.0 F 05/23/21 07:54 Pulse 102 H 05/23/21 08:04 Resp 19 05/23/21 07:54 BP 110/60 05/23/21 08:04 Pulse Ox 93 L 05/23/21 07:54 Weight - Most Recent: 151 lb 1.6 oz Lab Results Last 24 Hours: Laboratory Results - last 24 hr 05/23/21 05/23/21 Range/Units 09:20 09:20 WBC 4.3 (3.0-10.3) x10-3/uL RBC 3.38 L (3.60-5.20) x10(6)uL Hgb 9.9 L (11.4-15.5) g/dL Hct 30.4 L (34.2-48.2) % MCV 90.0 (76.7-100.5) fL MCH 29.4 (23.9-33.9) pg MCHC 32.6 (31.9-34.8) g/dL RDW 15.1 (12.3-16.5) % Plt Count 149 L (151-488) x10(3)uL MPV 7.2 (7.1-12.4) fL Add Manual Diff Yes Neutrophils % (Manual) 86 H (46-82) % Lymphocytes % (Manual) 12 L (13-37) % Monocytes % (Manual) 2 L (4-12) % Sodium 134 L (135-145) mmol/L Potassium 4.6 D (3.5-5.3) mmol/L Chloride 100 (100-110) mmol/L Carbon Dioxide 26 (21-32) mmol/L BUN 25 H (7-18) mg/dL Creatinine 1.4 H (0.55-1.02) mg/dL Est Cr Clr Drug Dosing 24.45 mL/min Estimated GFR (MDRD) 36 L (>60) BUN/Creatinine Ratio 17.9 (9-20) Glucose 101 (80-116) mg/dL Calcium 7.6 L (8.6-10.2) mg/dL Med Orders - Current: Current Medications Acetaminophen (Acetaminophen 500 Mg Tab) 1,000 mg PO Q8H [facility] Last Admin: 05/23/21 05:17 Dose: 1,000 mg Documented by: Amoxicillin/Clavulanate Potassium (Amoxicillin/Clavulanate K 500-125 Mg Tab) 1 tab PO BID [facility] Stop: 05/25/21 09:01 Last Admin: 05/23/21 07:59 Dose: 1 tab Documented by: Apixaban (Apixaban 5 Mg Tab) 5 mg PO BID [facility] Last Admin: 05/23/21 08:01 Dose: 5 mg Documented by: Cholecalciferol (Cholecalciferol (Vitamin D3) 25 Mcg Tab) 50 mcg PO DAILY [facility] Last Admin: 05/23/21 08:04 Dose: 50 mcg Documented by: Dexamethasone (Dexamethasone 2 Mg Tab) 6 mg PO DAILY [facility] Stop: 06/01/21 10:01 Last Admin: 05/23/21 10:14 Dose: 6 mg Documented by: Furosemide (Furosemide 40 Mg Tab) 40 mg PO DAILY [facility] Last Admin: 05/23/21 08:02 Dose: 40 mg Documented by: Lidocaine (Lidocaine 4% 1 Each Patch) 2 each TOP DAILY [facility] Last Admin: 05/23/21 07:58 Dose: 2 each Documented by: Losartan Potassium (Losartan 25 Mg Tab) 25 mg PO DAILY [facility] Last Admin: 05/23/21 08:00 Dose: 25 mg Documented by: Methyl Salicylate (Menthol/Methyl Salicylate 85 Gm Tube) 0 gm TOP TID [facility] Last Admin: 05/23/21 08:01 Dose: 1 applic Documented by: Metoprolol Succinate (Metoprolol Succinate 50 Mg Tab.Er) 50 mg PO DAILY [facility] Last Admin: 05/23/21 08:04 Dose: 50 mg Documented by: Mirtazapine (Mirtazapine 15 Mg Tab) 7.5 mg PO BEDTIME [facility] Last Admin: 05/22/21 20:23 Dose: 7.5 mg Documented by: Miscellaneous Information (Lidocaine Patch) 2 ea MANOLOM BEDTIME [facility] Last Admin: 05/22/21 20:24 Dose: 2 ea Documented by: Potassium Chloride (Potassium Chloride 10 Meq Tab.Er) 30 meq PO DAILY [facility] Last Admin: 05/23/21 08:02 Dose: 30 meq Documented by: Prednisone (Prednisone 5 Mg Tab) 5 mg PO WITHBREAKFAST [facility] Last Admin: 05/23/21 07:57 Dose: 5 mg Documented by: Rosuvastatin Calcium (Rosuvastatin 10 Mg Tab) 10 mg PO DAILY [facility] Last Admin: 05/23/21 08:01 Dose: 10 mg Documented by: Tamsulosin HCl (Tamsulosin 0.4 Mg Cap.Er) 0.4 mg PO DAILY [facility] Last Admin: 05/23/21 08:01 Dose: 0.4 mg Documented by: Tramadol HCl (Tramadol 50 Mg Tab) 50 mg PO BEDTIME [facility] Last Admin: 05/22/21 20:25 Dose: 50 mg Documented by: Vit C/Vit E/Zinc/Copper/Lutein (Lutein/Minerals/Vitamin C/Vitamin E Acetate Cap) 1 each PO DAILY [facility] Last Admin: 05/23/21 10:13 Dose: 1 each Documented by: Discontinued Medications Acetaminophen (Acetaminophen 325 Mg Tab) 650 mg PO Q6H PRN PRN Reason: Pain/Fever Last Admin: 05/04/21 04:07 Dose: 650 mg Documented by: Acetaminophen (Acetaminophen 325 Mg Tab) Confirm Administered Dose 650 mg .ROUTE .STK-MED ONE Stop: 05/03/21 03:00 Last Admin: 05/03/21 04:42 Dose: Not Given Documented by: Amoxicillin/Clavulanate Potassium (Amoxicillin/Clavulanate K 500-125 Mg Tab) 1 tab PO TID [facility] Stop: 05/25/21 09:01 Last Admin: 05/18/21 13:03 Dose: 1 tab Documented by: Azithromycin (Azithromycin 250 Mg Tab) 250 mg PO DAILY [facility] Stop: 05/22/21 09:01 Last Admin: 05/22/21 08:50 Dose: 250 mg Documented by: Azithromycin (Azithromycin 500 Mg Tab) 500 mg PO ONETIME ONE Stop: 05/18/21 09:01 Last Admin: 05/18/21 09:06 Dose: 500 mg Documented by: Lidocaine HCl (Lidocaine 1% 5 Ml Sdv) 3 ml INJECT .STK-MED ONE Stop: 05/05/21 20:01 Pantoprazole Sodium (Pantoprazole 40 Mg Tab.Cr) 40 mg PO BID@06,17 [facility] Last Admin: 05/11/21 07:21 Dose: Not Given Documented by: Triamcinolone Acetonide (Triamcinolone Acetonide 40 Mg/Ml 1 Ml Sdv) 40 mg INJECT .STK-MED ONE Stop: 05/05/21 20:01 - Exam Quality Assessment: Supplemental Oxygen (3L, simple mask) General: Alert, Oriented, Cooperative, No Acute Distress Lungs: Clear to Auscultation, Normal Respiratory Effort, Decreased Breath Sounds (bibasilar), Crackles (bases). No: Wheezing Cardiovascular: Regular Rate, Regular Rhythm GI/Abdominal Exam: Normal Bowel Sounds, Soft, Non-Tender, No Distention Extremities: No Pedal Edema, Normal Capillary Refill Peripheral Pulses: 2+: Radial (L), Radial (R), Dorsalis Pedis (L), Dorsalis Pedis (R) Skin: Warm, Dry, Intact - Patient Data Lab Results Last 24 hrs: Laboratory Results - last 24 hr 05/23/21 05/23/21 Range/Units 09:20 09:20 WBC 4.3 (3.0-10.3) x10-3/uL RBC 3.38 L (3.60-5.20) x10(6)uL Hgb 9.9 L (11.4-15.5) g/dL Hct 30.4 L (34.2-48.2) % MCV 90.0 (76.7-100.5) fL MCH 29.4 (23.9-33.9) pg MCHC 32.6 (31.9-34.8) g/dL RDW 15.1 (12.3-16.5) % Plt Count 149 L (151-488) x10(3)uL MPV 7.2 (7.1-12.4) fL Add Manual Diff Yes Neutrophils % (Manual) 86 H (46-82) % Lymphocytes % (Manual) 12 L (13-37) % Monocytes % (Manual) 2 L (4-12) % Sodium 134 L (135-145) mmol/L Potassium 4.6 D (3.5-5.3) mmol/L Chloride 100 (100-110) mmol/L Carbon Dioxide 26 (21-32) mmol/L BUN 25 H (7-18) mg/dL Creatinine 1.4 H (0.55-1.02) mg/dL Est Cr Clr Drug Dosing 24.45 mL/min Estimated GFR (MDRD) 36 L (>60) BUN/Creatinine Ratio 17.9 (9-20) Glucose 101 (80-116) mg/dL Calcium 7.6 L (8.6-10.2) mg/dL Result Diagrams: 05/23/21 09:20 05/23/21 09:20 Sepsis Event Note - Evaluation Sepsis Screening Result: No Definite Risk - Focused Exam Vital Signs: Vital Signs Temp Pulse Pulse Resp BP BP Pulse Ox 05/23/21 08:04 102 H 110/60 05/23/21 08:00 110/60 05/23/21 07:54 97.0 F 102 H 19 110/60 93 L 05/23/21 06:45 05/23/21 02:00 97.1 F 98 20 120/70 93 L Pulse Ox 05/23/21 08:04 05/23/21 08:00 05/23/21 07:54 05/23/21 06:45 84 L 05/23/21 02:00 - Problem List & Annotations (1) Pneumonia due to COVID-19 virus SNOMED Code(s): 540991913794953417 Code(s): U07.1 - COVID-19; J12.82 - PNEUMONIA DUE TO CORONAVIRUS DISEASE 2019 Status: Acute Current Visit: Yes Annotation/Comment:: also secondary bacterial, completed Azithromycin, Augmentin will be completed on 05/25. (2) Atrial fibrillation SNOMED Code(s): 50689961 Code(s): I48.91 - UNSPECIFIED ATRIAL FIBRILLATION Status: Acute Current Visit: Yes Onset Date: ~04/27/21 (3) Pulmonary fibrosis SNOMED Code(s): 94236551 Code(s): J84.10 - PULMONARY FIBROSIS, UNSPECIFIED Status: Chronic Current Visit: Yes (4) Congestive heart failure SNOMED Code(s): 10688150 Code(s): I50.9 - HEART FAILURE, UNSPECIFIED Status: Chronic Current Visit: Yes (5) Coronary artery disease SNOMED Code(s): 66418272 Code(s): I25.10 - ATHSCL HEART DISEASE OF [place] CORONARY ARTERY W/O ANG PCTRS Status: Chronic Current Visit: Yes (6) Dermatomyositis SNOMED Code(s): 096323716 Code(s): M33.90 - DERMATOPOLYMYOSITIS, UNSP, ORGAN INVOLVEMENT UNSPECIFIED Status: Chronic Current Visit: Yes (7) Hyperlipidemia SNOMED Code(s): 62863700 Code(s): E78.5 - HYPERLIPIDEMIA, UNSPECIFIED Status: Chronic Current Visit: Yes (8) Hypertension SNOMED Code(s): 49817027 Code(s): I10 - ESSENTIAL (PRIMARY) HYPERTENSION Status: Chronic Current Visit: Yes (9) Osteoarthritis SNOMED Code(s): 918303765 Code(s): M19.90 - UNSPECIFIED OSTEOARTHRITIS, UNSPECIFIED SITE Status: Chronic Current Visit: Yes (10) S/P TAVR (transcatheter aortic valve replacement) SNOMED Code(s): 6927591386020, 193522674, 764950788, 6328281307197 Code(s): Z95.2 - PRESENCE OF PROSTHETIC HEART VALVE Status: Chronic Current Visit: Yes - Problem List Review Problem List Initiated/Reviewed/Updated: Yes - My Orders Last 24 Hours: My Active Orders 05/23/21 08:32 CXR [Chest 1V Frontal] [CR] Routine 05/23/21 08:37 UA W/MICROSCOPIC [URIN] Routine 05/23/21 08:38 Insert Urinary Catheter [OM.PC] Stat Urinary Catheter Assessment [RC] QSHIFT 05/23/21 10:00 dexAMETHasone 6 mg PO DAILY - Plan Plan:: 1. CAP secondary to Covid: She was not requiring oxygen at time of diagnosis, since in swing bed offered Monoclonal antibody on Sunday, pharmacy reviewed medications and side effects with patient and she declined it. Last night oxygen dropped to 83%, came up with simple mask at 3L. Started Dexamethasone 6 mg po daily today, hold prednisone until she completes 10 days of Dexamethasone. Not Remdesivir candidate. CBC & BMP obtained today, slight dehydration hold Lasix, WBC was normal. Encourage fluids. CXR portable. Completed Azithromycin over weekend, Augmentin through 05/25. Adjust treatments as necessary. 2. Weakness: set back with current infection, had been progressing, had been working on stairs prior to pneumonia. Question if she needs to go to assisted living once she is over infection to have a longer time to rehab.
--- NOTE | 2021-05-23 12:39 | CR ---
CHEST ONE VIEW INDICATION: COVID RU. FINDINGS: AP portable upright view of the chest 05/23/2021 was compared with 05/17/21 and revealed severe increase in infiltration bilaterally in the right upper and middle lung field most severe and also severe at the lung bases and scattered in the left upper lung field and mid lung field. The heart remains within normal limits in size but not well seen. Elevated right hemidiaphragm is noted. The aorta is tortuous with calcification in the arch. IMPRESSION: Severe increase in bilateral infiltration, especially severe on the right in the upper middle lung field. Findings would be compatible with COVID- 19 pneumonia - correlate clinically. MTDD
[2021-05-23] MEDS: Mirtazapine 15 MG Tab PO SCH (20:55)
[2021-05-23] MEDS: Saccharomyces Boulardii (Probiotic) 250 MG Cap PO SCH (21:04)
[2021-05-23] MEDS: traMADol 50 MG Tab PO SCH (21:04)
[2021-05-23] MEDS: LIDOCAINE PATCH TRDERM SCH (21:47)
[2021-05-24] MEDS: Acetaminophen 500 MG Tab PO SCH ×3 (05:53→20:40)
[2021-05-24] MEDS: Lidocaine 4% 1 each Patch TOP SCH (10:08)
[2021-05-24] MEDS: Cholecalciferol (Vitamin D3) 25 MCG Tab PO SCH (10:09)
[2021-05-24] MEDS: Rosuvastatin 10 MG Tab PO SCH (10:09)
[2021-05-24] MEDS: Losartan 25 MG Tab PO SCH (10:10)
[2021-05-24] MEDS: Metoprolol Succinate 50 MG Tab.ER PO SCH (10:11)
[2021-05-24] MEDS: Apixaban 5 MG Tab PO SCH ×2 (10:12→20:40)
[2021-05-24] MEDS: Potassium Chloride 10 MEQ Tab.ER PO SCH (10:12)
[2021-05-24] MEDS: Amoxicillin/Clavulanate K 500-125 MG Tab PO SCH ×2 (10:12→20:40)
[2021-05-24] MEDS: Tamsulosin 0.4 MG Cap.ER PO SCH (10:13)
[2021-05-24] MEDS: Saccharomyces Boulardii (Probiotic) 250 MG Cap PO SCH ×2 (10:14→20:43)
[2021-05-24] MEDS: Dexamethasone 2 MG Tab PO SCH (10:21)
[2021-05-24] MEDS: Menthol/Methyl Salicylate 85 GM Tube TOP SCH ×3 (10:21→20:39)
[2021-05-24] MEDS: Lutein/Minerals/Vitamin C/Vitamin E Acetate Cap PO SCH (10:22)
[2021-05-24] MEDS: traMADol 50 MG Tab PO SCH (20:38)
[2021-05-24] MEDS: LIDOCAINE PATCH TRDERM SCH (20:41)
[2021-05-24] MEDS: Mirtazapine 15 MG Tab PO SCH (20:42)
[2021-05-25] MEDS: Acetaminophen 500 MG Tab PO SCH ×3 (05:12→20:00)
[2021-05-25] MEDS: Lidocaine 4% 1 each Patch TOP SCH (08:22)
[2021-05-25] MEDS: Potassium Chloride 10 MEQ Tab.ER PO SCH (08:24)
[2021-05-25] MEDS: Cholecalciferol (Vitamin D3) 25 MCG Tab PO SCH (08:25)
[2021-05-25] MEDS: Metoprolol Succinate 50 MG Tab.ER PO SCH (08:25)
[2021-05-25] MEDS: Losartan 25 MG Tab PO SCH (08:26)
[2021-05-25] MEDS: Rosuvastatin 10 MG Tab PO SCH (08:28)
[2021-05-25] MEDS: Dexamethasone 2 MG Tab PO SCH (08:28)
[2021-05-25] MEDS: Apixaban 5 MG Tab PO SCH ×2 (08:28→20:00)
[2021-05-25] MEDS: Tamsulosin 0.4 MG Cap.ER PO SCH (08:28)
[2021-05-25] MEDS: Lutein/Minerals/Vitamin C/Vitamin E Acetate Cap PO SCH (08:28)
[2021-05-25] MEDS: Amoxicillin/Clavulanate K 500-125 MG Tab PO SCH (08:28)
[2021-05-25] MEDS: Saccharomyces Boulardii (Probiotic) 250 MG Cap PO SCH ×2 (08:29→20:00)
[2021-05-25] MEDS: Menthol/Methyl Salicylate 85 GM Tube TOP SCH ×2 (15:35→20:04)
[2021-05-25] MEDS ORDERED: Furosemide 40 MG Tab PO ONE (18:48)
[2021-05-25] MEDS: LORazepam 0.5 MG Tab PO PRN (19:09)
[2021-05-25] MEDS: traMADol 50 MG Tab PO SCH (20:01)
[2021-05-25] MEDS: Mirtazapine 15 MG Tab PO SCH (20:02)
[2021-05-25] MEDS: LIDOCAINE PATCH TRDERM SCH (22:11)
[2021-05-26] MEDS: LORazepam 0.5 MG Tab PO PRN ×4 (00:49→18:58)
[2021-05-26] MEDS: Acetaminophen 500 MG Tab PO SCH ×3 (04:20→20:15)
[2021-05-26] MEDS ORDERED: Benzonatate 100 MG Cap PO PRN (07:56)
[2021-05-26] MEDS: Potassium Chloride 10 MEQ Tab.ER PO SCH (08:19)
[2021-05-26] MEDS: Lidocaine 4% 1 each Patch TOP SCH (08:20)
[2021-05-26] MEDS: Cholecalciferol (Vitamin D3) 25 MCG Tab PO SCH (08:27)
[2021-05-26] MEDS: Apixaban 5 MG Tab PO SCH (08:28)
[2021-05-26] MEDS: Saccharomyces Boulardii (Probiotic) 250 MG Cap PO SCH ×2 (08:29→20:12)
[2021-05-26] MEDS: Rosuvastatin 10 MG Tab PO SCH (08:29)
[2021-05-26] MEDS: Tamsulosin 0.4 MG Cap.ER PO SCH (08:30)
[2021-05-26] MEDS: Dexamethasone 2 MG Tab PO SCH (08:30)
[2021-05-26] MEDS: Losartan 25 MG Tab PO SCH (08:31)
[2021-05-26] MEDS: Metoprolol Succinate 50 MG Tab.ER PO SCH (08:32)
[2021-05-26] MEDS: Furosemide 40 MG Tab PO SCH (08:33)
[2021-05-26] MEDS: Lutein/Minerals/Vitamin C/Vitamin E Acetate Cap PO SCH (08:36)
[2021-05-26] MEDS: Menthol/Methyl Salicylate 85 GM Tube TOP SCH ×4 (08:37→22:12)
--- NOTE | 2021-05-26 09:53 | PCM.PN ---
- General Info Date of Service: 05/26/21 Subjective Update: Gina desaturated last night, had more crackles so gave Lasix and 450 ml out evening/pm shifts which is more than during the day. She was on 6L but wouldn't keep mask on, changed to HFNC at 10L this morning. She is more alert this morning, eating breakfast. Discussed with her drinking more today so she doesn't get dehydrated with Lasix restarted. Has some loose stools yesterday, Augmentin finished yesterday, she states stool improved today. No fevers. After left her room she did have a coffee ground type stool per therapy. - Patient Data Vitals - Most Recent: Last Vital Signs Temp 96.9 F 05/26/21 08:00 Pulse 107 H 05/26/21 08:32 Resp 21 H 05/26/21 08:00 BP 133/78 05/26/21 08:32 Pulse Ox 86 L 05/26/21 09:28 Weight - Most Recent: 151 lb 1.6 oz I&O - Last 24 Hours: Intake & Output 05/25/21 05/26/21 05/26/21 22:59 06:59 14:59 Intake Total 420 450 Output Total 225 225 Balance 195 225 Med Orders - Current: Current Medications Acetaminophen (Acetaminophen 500 Mg Tab) 1,000 mg PO Q8H [facility] Last Admin: 05/26/21 04:20 Dose: 1,000 mg Documented by: Apixaban (Apixaban 5 Mg Tab) 5 mg PO BID [facility] Last Admin: 05/26/21 08:28 Dose: 5 mg Documented by: Benzonatate (Benzonatate 100 Mg Cap) 200 mg PO TID PRN PRN Reason: Cough Cholecalciferol (Cholecalciferol (Vitamin D3) 25 Mcg Tab) 50 mcg PO DAILY [facility] Last Admin: 05/26/21 08:27 Dose: 50 mcg Documented by: Dexamethasone (Dexamethasone 2 Mg Tab) 6 mg PO DAILY [facility] Stop: 06/01/21 10:01 Last Admin: 05/26/21 08:30 Dose: 6 mg Documented by: Furosemide (Furosemide 40 Mg Tab) 40 mg PO DAILY [facility] Last Admin: 05/26/21 08:33 Dose: 40 mg Documented by: Lidocaine (Lidocaine 4% 1 Each Patch) 2 each TOP DAILY [facility] Last Admin: 05/26/21 08:20 Dose: 2 each Documented by: Lorazepam (Lorazepam 0.5 Mg Tab) 0.25 mg PO Q4H PRN PRN Reason: Anxiety Last Admin: 05/26/21 08:17 Dose: 0.25 mg Documented by: Losartan Potassium (Losartan 25 Mg Tab) 25 mg PO DAILY [facility] Last Admin: 05/26/21 08:31 Dose: 25 mg Documented by: Methyl Salicylate (Menthol/Methyl Salicylate 85 Gm Tube) 0 gm TOP TID [facility] Last Admin: 05/26/21 08:37 Dose: 1 applic Documented by: Metoprolol Succinate (Metoprolol Succinate 50 Mg Tab.Er) 50 mg PO DAILY [facility] Last Admin: 05/26/21 08:32 Dose: 50 mg Documented by: Mirtazapine (Mirtazapine 15 Mg Tab) 7.5 mg PO BEDTIME [facility] Last Admin: 05/25/21 20:02 Dose: 7.5 mg Documented by: Miscellaneous Information (Lidocaine Patch) 2 ea TRDERM BEDTIME [facility] Last Admin: 05/25/21 22:11 Dose: 2 ea Documented by: Potassium Chloride (Potassium Chloride 10 Meq Tab.Er) 30 meq PO DAILY [facility] Last Admin: 05/26/21 08:19 Dose: 30 meq Documented by: Prednisone (Prednisone 5 Mg Tab) 5 mg PO WITHBREAKFAST [facility] Last Admin: 05/23/21 07:57 Dose: 5 mg Documented by: Rosuvastatin Calcium (Rosuvastatin 10 Mg Tab) 10 mg PO DAILY [facility] Last Admin: 05/26/21 08:29 Dose: 10 mg Documented by: Saccharomyces Boulardii (Saccharomyces Boulardii (Probiotic) 250 Mg Cap) 500 mg PO BID [facility] Last Admin: 05/26/21 08:29 Dose: 500 mg Documented by: Tamsulosin HCl (Tamsulosin 0.4 Mg Cap.Er) 0.4 mg PO DAILY [facility] Last Admin: 05/26/21 08:30 Dose: 0.4 mg Documented by: Tramadol HCl (Tramadol 50 Mg Tab) 50 mg PO BEDTIME [facility] Last Admin: 05/25/21 20:01 Dose: 50 mg Documented by: Vit C/Vit E/Zinc/Copper/Lutein (Lutein/Minerals/Vitamin C/Vitamin E Acetate Cap) 1 each PO DAILY [facility] Last Admin: 05/26/21 08:36 Dose: 1 each Documented by: Discontinued Medications Acetaminophen (Acetaminophen 325 Mg Tab) 650 mg PO Q6H PRN PRN Reason: Pain/Fever Last Admin: 05/04/21 04:07 Dose: 650 mg Documented by: Acetaminophen (Acetaminophen 325 Mg Tab) Confirm Administered Dose 650 mg .ROUTE .STK-MED ONE Stop: 05/03/21 03:00 Last Admin: 05/03/21 04:42 Dose: Not Given Documented by: Amoxicillin/Clavulanate Potassium (Amoxicillin/Clavulanate K 500-125 Mg Tab) 1 tab PO TID [facility] Stop: 05/25/21 09:01 Last Admin: 05/18/21 13:03 Dose: 1 tab Documented by: Amoxicillin/Clavulanate Potassium (Amoxicillin/Clavulanate K 500-125 Mg Tab) 1 tab PO BID [facility] Stop: 05/25/21 09:01 Last Admin: 05/25/21 08:28 Dose: 1 tab Documented by: Azithromycin (Azithromycin 250 Mg Tab) 250 mg PO DAILY [facility] Stop: 05/22/21 09:01 Last Admin: 05/22/21 08:50 Dose: 250 mg Documented by: Azithromycin (Azithromycin 500 Mg Tab) 500 mg PO ONETIME ONE Stop: 05/18/21 09:01 Last Admin: 05/18/21 09:06 Dose: 500 mg Documented by: Furosemide (Furosemide 40 Mg Tab) 40 mg PO ONETIME ONE Stop: 05/25/21 18:49 Last Admin: 05/25/21 19:10 Dose: 40 mg Documented by: Lidocaine HCl (Lidocaine 1% 5 Ml Sdv) 3 ml INJECT .STK-MED ONE Stop: 05/05/21 20:01 Methyl Salicylate (Menthol/Methyl Salicylate 85 Gm Tube) 0 gm TOP TID [facility] Last Admin: 05/24/21 20:39 Dose: 1 applic Documented by: Pantoprazole Sodium (Pantoprazole 40 Mg Tab.Cr) 40 mg PO BID@ [facility] Last Admin: 05/11/21 07:21 Dose: Not Given Documented by: Triamcinolone Acetonide (Triamcinolone Acetonide 40 Mg/Ml 1 Ml Sdv) 40 mg INJECT .STK-MED ONE Stop: 05/05/21 20:01 - Exam Quality Assessment: Supplemental Oxygen Urinary Catheter Total Time: 2Days 12Hours General: Alert, Oriented, Cooperative, Mild Distress (had her head down eating but no accessory muscle use) Lungs: Clear to Auscultation (BUL), Crackles (coarse BLL, L midlung). No: Normal Respiratory Effort (increased, currently eating breakfast), Decreased Breath Sounds, Wheezing Cardiovascular: Regular Rate, Regular Rhythm GI/Abdominal Exam: Normal Bowel Sounds, Soft, Non-Tender, No Distention (Female) Exam: Deferred Peripheral Pulses: 2+: Radial (L), Radial (R), Posterior Tibial (L), Posterior Tibial (R), Dorsalis Pedis (L), Dorsalis Pedis (R) - Patient Data Result Diagrams: 05/23/21 09:20 05/23/21 09:20 Sepsis Event Note - Evaluation Sepsis Screening Result: Possible Sepsis Risk - Focused Exam Vital Signs: Vital Signs Temp Pulse Pulse Resp BP BP Pulse Ox 05/26/21 09:28 05/26/21 08:32 107 H 133/78 05/26/21 08:31 133/78 05/26/21 08:00 96.9 F 107 H 21 H 133/78 89 L 05/26/21 06:00 86 05/25/21 22:00 102 H Pulse Ox 05/26/21 09:28 86 L 05/26/21 08:32 05/26/21 08:31 05/26/21 08:00 70 L 05/26/21 06:00 05/25/21 22:00 - Problem List & Annotations (1) Pneumonia due to COVID-19 virus SNOMED Code(s): 711694080704288696 Code(s): U07.1 - COVID-19; J12.82 - PNEUMONIA DUE TO CORONAVIRUS DISEASE 2019 Status: Acute Current Visit: Yes Annotation/Comment:: also secondary bacterial, completed Azithromycin & Augmentin. (2) Dark stools SNOMED Code(s): 28568083 Code(s): R19.5 - OTHER FECAL ABNORMALITIES Status: Acute Current Visit: Yes (3) Atrial fibrillation SNOMED Code(s): 88526713 Code(s): I48.91 - UNSPECIFIED ATRIAL FIBRILLATION Status: Acute Current Visit: Yes Onset Date: ~04/27/21 (4) Pulmonary fibrosis SNOMED Code(s): 91209570 Code(s): J84.10 - PULMONARY FIBROSIS, UNSPECIFIED Status: Chronic Current Visit: Yes (5) Congestive heart failure SNOMED Code(s): 93532006 Code(s): I50.9 - HEART FAILURE, UNSPECIFIED Status: Chronic Current Visit: Yes (6) Coronary artery disease SNOMED Code(s): 57261218 Code(s): I25.10 - ATHSCL HEART DISEASE OF [place] CORONARY ARTERY W/O ANG PCTRS Status: Chronic Current Visit: Yes (7) Dermatomyositis SNOMED Code(s): 894986331 Code(s): M33.90 - DERMATOPOLYMYOSITIS, UNSP, ORGAN INVOLVEMENT UNSPECIFIED Status: Chronic Current Visit: Yes (8) Hyperlipidemia SNOMED Code(s): 96638794 Code(s): E78.5 - HYPERLIPIDEMIA, UNSPECIFIED Status: Chronic Current Visit: Yes (9) Hypertension SNOMED Code(s): 87974166 Code(s): I10 - ESSENTIAL (PRIMARY) HYPERTENSION Status: Chronic Current Visit: Yes (10) Osteoarthritis SNOMED Code(s): 985484567 Code(s): M19.90 - UNSPECIFIED OSTEOARTHRITIS, UNSPECIFIED SITE Status: Chronic Current Visit: Yes (11) S/P TAVR (transcatheter aortic valve replacement) SNOMED Code(s): 8558189509691, 669710729, 061550436, 9371116575090 Code(s): Z95.2 - PRESENCE OF PROSTHETIC HEART VALVE Status: Chronic Current Visit: Yes - Problem List Review Problem List Initiated/Reviewed/Updated: Yes - My Orders Last 24 Hours: My Active Orders 05/25/21 14:00 Menthol/Methyl Salicylate [Icy Hot Cream] 0 gm TOP TID 05/25/21 14:53 Renew/Continue Urinary Catheter [OM.PC] Routine 05/25/21 16:09 Renew/Continue Urinary Catheter [OM.PC] Routine 05/25/21 18:43 LORazepam [Ativan] 0.25 mg PO Q4H PRN 05/26/21 07:56 Benzonatate [Tessalon Perles] 200 mg PO TID PRN - Plan Plan:: 1. CAP secondary to Covid: Portable CXR. Requiring HFNC at 10L currently. Dexamethasone 6 mg po daily day 4. Restarted Lasix last night, increased oxygen requirement. Had good output for what she had for intake. Completed Augmentin & Azithromycin for bacterial pneumonia. Adjust treatments as necessary. 2. Dark stools: occult screen, is on Eliquis 5 mg bid for Atrial Fibrillation. 3. Weakness: set back with current infection, had been progressing, had been working on stairs prior to pneumonia. Question if she needs to go to assisted living once she is over infection to have a longer time to rehab.
--- NOTE | 2021-05-26 11:36 | CR ---
CHEST ONE VIEW INDICATION: COVID positive, recheck pneumonia/CHF. FINDINGS: AP upright portable view of the chest 05/26/21 compared with 05/23/21 and 05/17/21 revealed extensive infiltration in the right upper lung field as previously with little change. Patchy infiltration is noted at the right lower lung field. New or significantly increased infiltration is noted in the left upper middle lung field and mid lung field with continued infiltration in the left lung base. It is difficult to exclude a degree of CHF also. The heart did not appear grossly enlarged, however - correlate clinically in this patient with aortic valve replacement. The aorta is tortuous with calcification in the arch. IMPRESSION: Worsening infiltration on the left with stable infiltration otherwise bilaterally. MTDD
[2021-05-26] MEDS: Loperamide 2 MG Cap PO PRN ×2 (12:45→20:16)
[2021-05-26] MEDS: Morphine 10 MG/0.5 ML Oral Syringe SL PRN ×2 (15:30→19:23)
[2021-05-26] MEDS ORDERED: Furosemide 40 MG/4 ML VIAL IVPUSH ONE (15:41)
[2021-05-26] MEDS: Sodium Chloride 0.9% 10 ML Syringe FLUSH PRN (16:20)
[2021-05-26] MEDS: Mirtazapine 15 MG Tab PO SCH (20:14)
[2021-05-26] MEDS: LIDOCAINE PATCH TRDERM SCH (20:15)
[2021-05-26] MEDS ORDERED: Apixaban 5 MG Tab PO SCH (21:00)
[2021-05-27 03:10] VITALS: BP 141/79; PULSE 77
[2021-05-27] MEDS: Morphine 10 MG/0.5 ML Oral Syringe SL PRN ×2 (03:32→08:45)
[2021-05-27] MEDS: Acetaminophen 500 MG Tab PO SCH (04:56)
[2021-05-27] MEDS ORDERED: Bumetanide 1 MG/4 ML MDV IVPUSH ONE (08:18)
[2021-05-27] MEDS ORDERED: Morphine 2 MG/ML SYRINGE IVPUSH PRN (08:36)
[2021-05-27] MEDS ORDERED: LORazepam 2 MG/ML SDV IVPUSH PRN (08:37)
[2021-05-27] MEDS: Sodium Chloride 0.9% 10 ML Syringe FLUSH PRN (08:44)
[2021-05-27] MEDS: Menthol/Methyl Salicylate 85 GM Tube TOP SCH (09:31)
[2021-05-27] MEDS: Lidocaine 4% 1 each Patch TOP SCH (09:33)
--- NOTE | 2021-05-27 10:19 | PCM.PN ---
- General Info Date of Service: 05/27/21 Subjective Update: Gina had dose of IV Lasix last night [place]BNP [place] [id number], her saturations were 91% on 15L HFNC. This morning nurse went in and she was having apneic episodes, dose of Bumex 1 mg IV given. I tried to get ahold of family and no answer. Magui Vail with social work got ahold of the son and daughter, they agreed to trial of BiPap. She has been declining rapidly this morning, apneic spells transitioning into agonal breathing. 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 - Patient Data Vitals - Most Recent: Last Vital Signs Temp 97.4 F 05/26/21 20:00 Pulse 77 05/27/21 03:08 Resp 32 H 05/27/21 03:08 BP 141/79 H 05/27/21 03:08 Pulse Ox 93 L 05/27/21 03:08 Weight - Most Recent: 151 lb 1.6 oz I&O - Last 24 Hours: Intake & Output 05/26/21 05/27/21 05/27/21 22:59 06:59 14:59 Output Total 500 Balance -500 Lab Results Last 24 Hours: Laboratory Results - last 24 hr 05/26/21 05/26/21 05/26/21 Range/Units 15:00 15:00 15:00 WBC 9.5 (3.0-10.3) x10-3/uL RBC 3.58 L (3.60-5.20) x10(6)uL Hgb 10.5 L (11.4-15.5) g/dL Hct 32.4 L (34.2-48.2) % MCV 90.3 (76.7-100.5) fL MCH 29.2 (23.9-33.9) pg MCHC 32.3 (31.9-34.8) g/dL RDW 15.5 (12.3-16.5) % Plt Count 184 (151-488) x10(3)uL MPV 7.8 (7.1-12.4) fL Add Manual Diff Yes Neutrophils % (Manual) 90 H (46-82) % Band Neutrophils % 2 (0-6) % Lymphocytes % (Manual) 4 L (13-37) % Monocytes % (Manual) 4 (4-12) % Sodium 137 (135-145) mmol/L Potassium 5.2 (3.5-5.3) mmol/L Chloride 101 (100-110) mmol/L Carbon Dioxide 23 (21-32) mmol/L BUN 54 H D (7-18) mg/dL Creatinine 1.7 H (0.55-1.02) mg/dL Est Cr Clr Drug Dosing 20.13 mL/min Estimated GFR (MDRD) 28 L (>60) BUN/Creatinine Ratio 31.8 H (9-20) Glucose 214 H D (80-116) mg/dL Calcium 8.3 L (8.6-10.2) mg/dL C-Reactive Protein 10.3 H* (0.5-0.9) mg/dL NT-Pro-B Natriuret Pep (<=450) pg/mL 05/26/21 Range/Units 15:00 WBC (3.0-10.3) x10-3/uL RBC (3.60-5.20) x10(6)uL Hgb (11.4-15.5) g/dL Hct (34.2-48.2) % MCV (76.7-100.5) fL MCH (23.9-33.9) pg MCHC (31.9-34.8) g/dL RDW (12.3-16.5) % Plt Count (151-488) x10(3)uL MPV (7.1-12.4) fL Add Manual Diff Neutrophils % (Manual) (46-82) % Band Neutrophils % (0-6) % Lymphocytes % (Manual) (13-37) % Monocytes % (Manual) (4-12) % Sodium (135-145) mmol/L Potassium (3.5-5.3) mmol/L Chloride (100-110) mmol/L Carbon Dioxide (21-32) mmol/L BUN (7-18) mg/dL Creatinine (0.55-1.02) mg/dL Est Cr Clr Drug Dosing mL/min Estimated GFR (MDRD) (>60) BUN/Creatinine Ratio (9-20) Glucose (80-116) mg/dL Calcium (8.6-10.2) mg/dL C-Reactive Protein (0.5-0.9) mg/dL NT-Pro-B Natriuret Pep 88190 H* (<=450) pg/mL [place] Results Last 24 Hours: Microbiology 05/26/21 14:15 Occult Blood - Final Stool / Feces Med Orders - Current: Current Medications Acetaminophen (Acetaminophen 500 Mg Tab) 1,000 mg PO Q8H [facility] Last Admin: 05/27/21 04:56 Dose: Not Given Documented by: Apixaban (Apixaban 5 Mg Tab) 2.5 mg PO BID [facility] Last Admin: 05/26/21 20:11 Dose: 2.5 mg Documented by: Benzonatate (Benzonatate 100 Mg Cap) 200 mg PO TID PRN PRN Reason: Cough Last Admin: 05/26/21 12:45 Dose: 200 mg Documented by: Cholecalciferol (Cholecalciferol (Vitamin D3) 25 Mcg Tab) 50 mcg PO DAILY [facility] Last Admin: 05/26/21 08:27 Dose: 50 mcg Documented by: Furosemide (Furosemide 40 Mg Tab) 40 mg PO DAILY [facility] Last Admin: 05/26/21 08:33 Dose: 40 mg Documented by: Lidocaine (Lidocaine 4% 1 Each Patch) 2 each TOP DAILY [facility] Last Admin: 05/27/21 09:33 Dose: 2 each Documented by: Loperamide HCl (Loperamide 2 Mg Cap) 2 mg PO Q4H PRN PRN Reason: Diarrhea Last Admin: 05/26/21 20:16 Dose: 2 mg Documented by: Lorazepam (Lorazepam 0.5 Mg Tab) 0.5 mg PO Q4H PRN PRN Reason: Anxiety Last Admin: 05/26/21 18:58 Dose: 0.5 mg Documented by: Lorazepam (Lorazepam 2 Mg/Ml Sdv) 0.5 mg IVPUSH Q2H PRN PRN Reason: Agitation Losartan Potassium (Losartan 25 Mg Tab) 25 mg PO DAILY [facility] Last Admin: 05/26/21 08:31 Dose: 25 mg Documented by: Methyl Salicylate (Menthol/Methyl Salicylate 85 Gm Tube) 0 gm TOP TID [facility] Last Admin: 05/27/21 09:31 Dose: 1 applic Documented by: Metoprolol Succinate (Metoprolol Succinate 50 Mg Tab.Er) 50 mg PO DAILY [facility] Last Admin: 05/26/21 08:32 Dose: 50 mg Documented by: Mirtazapine (Mirtazapine 15 Mg Tab) 7.5 mg PO BEDTIME [facility] Last Admin: 05/26/21 20:14 Dose: 7.5 mg Documented by: Miscellaneous Information (Lidocaine Patch) 2 ea TRDERM BEDTIME [facility] Last Admin: 05/26/21 20:15 Dose: 2 ea Documented by: Morphine Sulfate (Morphine 10 Mg/0.5 Ml Oral Syringe) 5 mg SL Q4H PRN PRN Reason: pain/air hunger Last Admin: 05/27/21 08:45 Dose: 5 mg Documented by: Morphine Sulfate (Morphine 2 Mg/Ml Syringe) 1 mg IVPUSH Q30M PRN PRN Reason: air hunger/pain Potassium Chloride (Potassium Chloride 10 Meq Tab.Er) 30 meq PO DAILY [facility] Last Admin: 05/26/21 08:19 Dose: 30 meq Documented by: Prednisone (Prednisone 5 Mg Tab) 5 mg PO WITHBREAKFAST [facility] Last Admin: 05/23/21 07:57 Dose: 5 mg Documented by: Rosuvastatin Calcium (Rosuvastatin 10 Mg Tab) 10 mg PO DAILY [facility] Last Admin: 05/26/21 08:29 Dose: 10 mg Documented by: Saccharomyces Boulardii (Saccharomyces Boulardii (Probiotic) 250 Mg Cap) 500 mg PO BID [facility] Last Admin: 05/26/21 20:12 Dose: 500 mg Documented by: Sodium Chloride (Sodium Chloride 0.9% 10 Ml Syringe) 10 ml FLUSH ASDIRECTED PRN PRN Reason: Keep Vein Open Last Admin: 05/27/21 08:44 Dose: 10 ml Documented by: Tamsulosin HCl (Tamsulosin 0.4 Mg Cap.Er) 0.4 mg PO DAILY [facility] Last Admin: 05/26/21 08:30 Dose: 0.4 mg Documented by: Vit C/Vit E/Zinc/Copper/Lutein (Lutein/Minerals/Vitamin C/Vitamin E Acetate Cap) 1 each PO DAILY [facility] Last Admin: 05/26/21 08:36 Dose: 1 each Documented by: Discontinued Medications Acetaminophen (Acetaminophen 325 Mg Tab) 650 mg PO Q6H PRN PRN Reason: Pain/Fever Last Admin: 05/04/21 04:07 Dose: 650 mg Documented by: Acetaminophen (Acetaminophen 325 Mg Tab) Confirm Administered Dose 650 mg .ROUTE .STK-MED ONE Stop: 05/03/21 03:00 Last Admin: 05/03/21 04:42 Dose: Not Given Documented by: Amoxicillin/Clavulanate Potassium (Amoxicillin/Clavulanate K 500-125 Mg Tab) 1 tab PO TID CAT Stop: 05/25/21 09:01 Last Admin: 05/18/21 13:03 Dose: 1 tab Documented by: Amoxicillin/Clavulanate Potassium (Amoxicillin/Clavulanate K 500-125 Mg Tab) 1 tab PO BID [facility] Stop: 05/25/21 09:01 Last Admin: 05/25/21 08:28 Dose: 1 tab Documented by: Apixaban (Apixaban 5 Mg Tab) 5 mg PO BID [facility] Last Admin: 05/26/21 08:28 Dose: 5 mg Documented by: Azithromycin (Azithromycin 250 Mg Tab) 250 mg PO DAILY [facility] Stop: 05/22/21 09:01 Last Admin: 05/22/21 08:50 Dose: 250 mg Documented by: Azithromycin (Azithromycin 500 Mg Tab) 500 mg PO ONETIME ONE Stop: 05/18/21 09:01 Last Admin: 05/18/21 09:06 Dose: 500 mg Documented by: Bumetanide (Bumetanide 1 Mg/4 Ml Mdv) 1 mg IVPUSH ONETIME ONE Stop: 05/27/21 08:19 Last Admin: 05/27/21 08:44 Dose: 1 mg Documented by: Dexamethasone (Dexamethasone 2 Mg Tab) 6 mg PO DAILY [facility] Stop: 06/01/21 10:01 Last Admin: 05/26/21 08:30 Dose: 6 mg Documented by: Furosemide (Furosemide 40 Mg Tab) 40 mg PO ONETIME ONE Stop: 05/25/21 18:49 Last Admin: 05/25/21 19:10 Dose: 40 mg Documented by: Furosemide (Furosemide 40 Mg/4 Ml Vial) 40 mg IVPUSH NOW ONE Stop: 05/26/21 15:42 Last Admin: 05/26/21 16:19 Dose: 40 mg Documented by: Lidocaine HCl (Lidocaine 1% 5 Ml Sdv) 3 ml INJECT .STK-MED ONE Stop: 05/05/21 20:01 Lorazepam (Lorazepam 0.5 Mg Tab) 0.25 mg PO Q4H PRN PRN Reason: Anxiety Last Admin: 05/26/21 08:17 Dose: 0.25 mg Documented by: Methyl Salicylate (Menthol/Methyl Salicylate 85 Gm Tube) 0 gm TOP TID [facility] Last Admin: 05/26/21 22:12 Dose: Not Given Documented by: Pantoprazole Sodium (Pantoprazole 40 Mg Tab.Cr) 40 mg PO BID@06,17 [facility] Last Admin: 05/11/21 07:21 Dose: Not Given Documented by: Tramadol HCl (Tramadol 50 Mg Tab) 50 mg PO BEDTIME [facility] Last Admin: 05/25/21 20:01 Dose: 50 mg Documented by: Triamcinolone Acetonide (Triamcinolone Acetonide 40 Mg/Ml 1 Ml Sdv) 40 mg INJECT .STK-MED ONE Stop: 05/05/21 20:01 - Exam Quality Assessment: Supplemental Oxygen, Urine Catheter Urinary Catheter Total Time: 3Days 13Hours General: Obtunded Lungs: Crackles (throughout), Other (apneic spells 4 sec) Cardiovascular: Tachycardia GI/Abdominal Exam: Soft, Non-Tender (hypoactive bs), No Distention, Abnormal Bowel Sounds Extremities: Pallor. No: Mottled Peripheral Pulses: 2+: Radial (L), Radial (R), Posterior Tibial (L), Posterior Tibial (R), Dorsalis Pedis (L), Dorsalis Pedis (R) Skin: Cool - Patient Data Lab Results Last 24 hrs: Laboratory Results - last 24 hr 05/26/21 05/26/21 05/26/21 Range/Units 15:00 15:00 15:00 WBC 9.5 (3.0-10.3) x10-3/uL RBC 3.58 L (3.60-5.20) x10(6)uL Hgb 10.5 L (11.4-15.5) g/dL Hct 32.4 L (34.2-48.2) % MCV 90.3 (76.7-100.5) fL MCH 29.2 (23.9-33.9) pg MCHC 32.3 (31.9-34.8) g/dL RDW 15.5 (12.3-16.5) % Plt Count 184 (151-488) x10(3)uL MPV 7.8 (7.1-12.4) fL Add Manual Diff Yes Neutrophils % (Manual) 90 H (46-82) % Band Neutrophils % 2 (0-6) % Lymphocytes % (Manual) 4 L (13-37) % Monocytes % (Manual) 4 (4-12) % Sodium 137 (135-145) mmol/L Potassium 5.2 (3.5-5.3) mmol/L Chloride 101 (100-110) mmol/L Carbon Dioxide 23 (21-32) mmol/L BUN 54 H D (7-18) mg/dL Creatinine 1.7 H (0.55-1.02) mg/dL Est Cr Clr Drug Dosing 20.13 mL/min Estimated GFR (MDRD) 28 L (>60) BUN/Creatinine Ratio 31.8 H (9-20) Glucose 214 H D (80-116) mg/dL Calcium 8.3 L (8.6-10.2) mg/dL C-Reactive Protein 10.3 H* (0.5-0.9) mg/dL NT-Pro-B Natriuret Pep (<=450) pg/mL 05/26/21 Range/Units 15:00 WBC (3.0-10.3) x10-3/uL RBC (3.60-5.20) x10(6)uL Hgb (11.4-15.5) g/dL Hct (34.2-48.2) % MCV (76.7-100.5) fL MCH (23.9-33.9) pg MCHC (31.9-34.8) g/dL RDW (12.3-16.5) % Plt Count (151-488) x10(3)uL MPV (7.1-12.4) fL Add Manual Diff Neutrophils % (Manual) (46-82) % Band Neutrophils % (0-6) % Lymphocytes % (Manual) (13-37) % Monocytes % (Manual) (4-12) % Sodium (135-145) mmol/L Potassium (3.5-5.3) mmol/L Chloride (100-110) mmol/L Carbon Dioxide (21-32) mmol/L BUN (7-18) mg/dL Creatinine (0.55-1.02) mg/dL Est Cr Clr Drug Dosing mL/min Estimated GFR (MDRD) (>60) BUN/Creatinine Ratio (9-20) Glucose (80-116) mg/dL Calcium (8.6-10.2) mg/dL C-Reactive Protein (0.5-0.9) mg/dL NT-Pro-B Natriuret Pep 64803 H* (<=450) pg/mL Result Diagrams: 05/26/21 15:00 05/26/21 15:00 [place] Results Last 24 hrs: Microbiology 05/26/21 14:15 Occult Blood - Final Stool / Feces Sepsis Event Note - Evaluation Sepsis Screening Result: No Definite Risk - Focused Exam Vital Signs: Vital Signs Pulse Resp BP Pulse Ox 05/27/21 03:08 77 32 H 141/79 H 93 L 05/27/21 00:00 105 H 24 H 90 L - Problem List & Annotations (1) Congestive heart failure SNOMED Code(s): 74133908 Code(s): I50.9 - HEART FAILURE, UNSPECIFIED Status: Chronic Current Visit: Yes Qualifiers: Heart failure chronicity: acute on chronic Annotation/Comment:: proBNP 72829, Bumex 1 mg IV x 1, BiPAP. (2) Pneumonia due to COVID-19 virus SNOMED Code(s): 381136917992467809 Code(s): U07.1 - COVID-19; J12.82 - PNEUMONIA DUE TO CORONAVIRUS DISEASE 2019 Status: Acute Current Visit: Yes Annotation/Comment:: also secondary bacterial, completed Azithromycin & Augmentin. (3) Dark stools SNOMED Code(s): 55837751 Code(s): R19.5 - OTHER FECAL ABNORMALITIES Status: Acute Current Visit: Yes (4) Atrial fibrillation SNOMED Code(s): 37333083 Code(s): I48.91 - UNSPECIFIED ATRIAL FIBRILLATION Status: Acute Current Visit: Yes Onset Date: ~04/27/21 (5) Pulmonary fibrosis SNOMED Code(s): 64664782 Code(s): J84.10 - PULMONARY FIBROSIS, UNSPECIFIED Status: Chronic Current Visit: Yes (6) Coronary artery disease SNOMED Code(s): 10660742 Code(s): I25.10 - ATHSCL HEART DISEASE OF [place] CORONARY ARTERY W/O ANG PCTRS Status: Chronic Current Visit: Yes (7) Dermatomyositis SNOMED Code(s): 321782607 Code(s): M33.90 - DERMATOPOLYMYOSITIS, UNSP, ORGAN INVOLVEMENT UNSPECIFIED Status: Chronic Current Visit: Yes (8) Hyperlipidemia SNOMED Code(s): 45946156 Code(s): E78.5 - HYPERLIPIDEMIA, UNSPECIFIED Status: Chronic Current Visit: Yes (9) Hypertension SNOMED Code(s): 53460703 Code(s): I10 - ESSENTIAL (PRIMARY) HYPERTENSION Status: Chronic Current Visit: Yes (10) Osteoarthritis SNOMED Code(s): 550852541 Code(s): M19.90 - UNSPECIFIED OSTEOARTHRITIS, UNSPECIFIED SITE Status: Chronic Current Visit: Yes (11) S/P TAVR (transcatheter aortic valve replacement) SNOMED Code(s): 5643204904188, 123928463, 561050302, 7706625624015 Code(s): Z95.2 - PRESENCE OF PROSTHETIC HEART VALVE Status: Chronic Current Visit: Yes - Problem List Review Problem List Initiated/Reviewed/Updated: Yes - My Orders Last 24 Hours: My Active Orders 05/26/21 12:29 LORazepam [Ativan] 0.5 mg PO Q4H PRN Loperamide [Imodium] 2 mg PO Q4H PRN 05/26/21 14:16 Daily Weight [Height and Weight] [RC] DAILY 05/26/21 15:07 Morphine [Morphine 10 MG/0.5 ML Oral Syringe] 5 mg SL Q4H PRN 05/26/21 15:41 Sodium Chloride 0.9% [Saline Flush] 10 ml FLUSH ASDIRECTED PRN Saline Lock Insert [OM.PC] Routine 05/26/21 21:00 Apixaban [Eliquis] 2.5 mg PO BID 05/27/21 08:32 BIPAP Adult [RT BiPAP/CPAP] [RC] ASDIRECTED 05/27/21 08:36 Morphine 1 mg IVPUSH Q30M PRN 05/27/21 08:37 LORazepam [Ativan] 0.5 mg IVPUSH Q2H PRN - Plan Plan:: 1. CAP secondary to Covid: CXR worsening yesterday, but could not rule out CHF per report so proBNP was 82151. Requiring HFNC at 15L currently, apneic episodes, switch to BiPap, ok'd by family. Dexamethasone 6 mg IV daily day 5. hold oral meds. Family at bedside, is eminent. 2. Dark stools: occult screen positive, is on Eliquis 2.5 mg bid for Atrial Fibrillation. 3. CHF: proBNP 40676, in acute heart failure, she has not responded to po Lasix and now IV lasix & Bumex, continuing to decline rapidly. Do not expect her to make it through the day.
[2021-05-27] MEDS ORDERED: Hyoscyamine 0.125 MG Tab.SL SL PRN (12:52)
[2021-05-27] MEDS ORDERED: Acetaminophen 650 MG Supp RECTAL PRN (12:55)
[2021-05-27] MEDS ORDERED: Bisacodyl 10 MG Supp RECTAL PRN (12:55)
[2021-05-27] MEDS ORDERED: Ondansetron 4 MG/2 ML SDV IVPUSH PRN (12:57)
[2021-05-27] MEDS ORDERED: Prochlorperazine 25 MG Supp RECTAL PRN (12:58)
--- NOTE | 2021-05-27 18:31 | PCM.DCSUM1 ---
Discharge Summary - Hospital Course HPI Initial Comments: 85-year-old lady admitted to penit[facility]iary[facility]swing bed for rehabilitation secondary to weakness. She suffered a fall on 04/27/2021 and was taken to the emergency department in [place], [place]. She was found to have a urinary tract infection and new onset of atrial fibrillation. She had a TEVAR procedure sometime ago and has otherwise been living independently. Review of her medical record does show a history of CAD, CHF with exacerbation, pulmonary fibrosis, hypertension, and hyperlipidemia. Review of surgical history shows cholecystectomy, hysterectomy, and TAVR. Her only acute complaint is bilateral knee pain. This is chronic. She has rec eived steroid injections into the knee joint for pain relief several times in the past, the most recent injection was January 2021. Diagnosis: Stroke: No - Discharge Data Discharge Date: 05/27/21 Discharge Disposition: 20 Preliminary Cause of *Q: Multi System Organ Failure (respiratory failure secondary to heart failure) Event(s) Leading to Patient's *Q: Covid pneumonia, poor oral intake, sudden change in condition. CXR was showed more infiltrates but couldn't rule out or in CHF. proBNP collected 72841. She was in acute on chronic congestive heart failure which led to respiratory failure. Family elected to do BiPAP until all family could get there as she did not want her life prolonged or heroic measures. BiPAP was discontinued after family arrived and when they were ready. Family request no further oxygen. She at 1330 with family at bedside. Condition: - Referral to Home Health Primary Care Physician: PCP Not In Area - Discharge Diagnosis/Problem(s) (1) Multi-organ failure with heart failure SNOMED Code(s): 22312418, 32825499 ICD Code: I50.9 - HEART FAILURE, UNSPECIFIED Status: Acute (2) Respiratory failure, acute SNOMED Code(s): 07569194 ICD Code: J96.00 - ACUTE RESPIRATORY FAILURE, UNSP W HYPOXIA OR HYPERCAPNIA Status: Acute (3) Congestive heart failure SNOMED Code(s): 93929449 ICD Code: I50.9 - HEART FAILURE, UNSPECIFIED Status: Chronic Problem Details: proBNP 95989, Bumex 1 mg IV x 1, BiPAP. Qualifiers: Heart failure chronicity: acute on chronic (4) Pneumonia due to COVID-19 virus SNOMED Code(s): 439354382882437107 ICD Code: U07.1 - COVID-19; J12.82 - PNEUMONIA DUE TO CORONAVIRUS DISEASE 2019 Status: Acute Problem Details: also secondary bacterial, completed Azithromycin & Augmentin. (5) Dark stools SNOMED Code(s): 42280512 ICD Code: R19.5 - OTHER FECAL ABNORMALITIES Status: Acute (6) Atrial fibrillation SNOMED Code(s): 89866497 ICD Code: I48.91 - UNSPECIFIED ATRIAL FIBRILLATION Status: Acute Onset Date: ~04/27/21 (7) Pulmonary fibrosis SNOMED Code(s): 81044600 ICD Code: J84.10 - PULMONARY FIBROSIS, UNSPECIFIED Status: Chronic (8) Coronary artery disease SNOMED Code(s): 64528700 ICD Code: I25.10 - ATHSCL HEART DISEASE OF [place] CORONARY ARTERY W/O ANG PCTRS Status: Chronic (9) Dermatomyositis SNOMED Code(s): 218193242 ICD Code: M33.90 - DERMATOPOLYMYOSITIS, UNSP, ORGAN INVOLVEMENT UNSPECIFIED Status: Chronic (10) Hyperlipidemia SNOMED Code(s): 75094471 ICD Code: E78.5 - HYPERLIPIDEMIA, UNSPECIFIED Status: Chronic (11) Hypertension SNOMED Code(s): 45984520 ICD Code: I10 - ESSENTIAL (PRIMARY) HYPERTENSION Status: Chronic (12) Osteoarthritis SNOMED Code(s): 654336970 ICD Code: M19.90 - UNSPECIFIED OSTEOARTHRITIS, UNSPECIFIED SITE Status: Chronic (13) S/P TAVR (transcatheter aortic valve replacement) SNOMED Code(s): 4179810365586, 445712328, 744500631, 2013794076000 ICD Code: Z95.2 - PRESENCE OF PROSTHETIC HEART VALVE Status: Chronic - Patient Summary/Data Hospital Course: Gina presented to swing bed for PT/OT for weakness, decondition after fall, UTI and new onset atrial fibrillation on 04/27. She had bilateral knee injections on 05/05. She progressed with therapy but had difficulty doing the stairs. Started having fatigue over the weekend of the , then shortness of breath and cough. Had CXR on 05/17, found to have pneumonia so started Augmentin 10 days and Azithromycin 5 day course concurrently. On 05/19 patient was concerned she had Covid so asked to be tested, she came back positive. She was moved into isolation at that time. She was not requiring oxygen at the time so offered monoclonal antibody she declined this due to her concerns of the side effects. Her appetite declined over the weekend. She desaturated to 83% on Sunday night, started on Dexamethasone 6 mg po daily on Sunday. Labs showed dehydration and blood pressure low so held Lasix 05/23 and 05/24, her oxygen requirement jumped from 3L to 6L on evening of 05/25, restarted Lasix. She was having stool incontinence with cough, had dark stools, coffee ground appearance, occult blood was positive so Eliquis decreased to 2.5 mg bid. Repeated labs on 05/26 with CXR, showed more infiltrates on left middle lung but could not exclude CHF. WBC was 9.5, hgb 10.5. proBNP 05038. IV started, Lasix 40 mg IV given, she was requiring 14L HFNC at this point, increased to 15L HFNC overnight, 91%. Morning of 05/27 she started having apneic spells, Bumex 1 mg IV given, family called about BiPAP, they agreed to this and her son and daughter came in as she was declining quite rapidly. 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 She was released to [facility] in [place]. - Patient Instructions Other/Special Instructions: at 1330, multiorgan failure - Discharge Plan *PRESCRIPTION DRUG MONITORING PROGRAM REVIEWED*: Not Applicable *COPY OF PRESCRIPTION DRUG MONITORING REPORT IN PATIENT CHRISTIAN: Not Applicable - Discharge Summary/Plan Comment DC Time >30 min.: No Total # of Minutes for Discharge Time: 23 min - Patient Data Vitals - Most Recent: Last Vital Signs Temp 97.4 F 05/26/21 20:00 Pulse 77 05/27/21 03:08 Resp 32 H 05/27/21 03:08 BP 141/79 H 05/27/21 03:08 Pulse Ox 93 L 05/27/21 03:08 Weight - Most Recent: 151 lb 1.6 oz LIZ Results - Last 24 hrs: Microbiology 05/26/21 14:15 Occult Blood - Final Stool / Feces Med Orders - Current: Current Medications Discontinued Medications Acetaminophen (Acetaminophen 325 Mg Tab) 650 mg PO Q6H PRN PRN Reason: Pain/Fever Last Admin: 05/04/21 04:07 Dose: 650 mg Documented by: Acetaminophen (Acetaminophen 325 Mg Tab) Confirm Administered Dose 650 mg .ROUTE .STK-MED ONE Stop: 05/03/21 03:00 Last Admin: 05/03/21 04:42 Dose: Not Given Documented by: Acetaminophen (Acetaminophen 500 Mg Tab) 1,000 mg PO Q8H [facility] Last Admin: 05/27/21 04:56 Dose: Not Given Documented by: Acetaminophen (Acetaminophen 650 Mg Supp) 650 mg RECTAL Q4H PRN PRN Reason: fever/pain Amoxicillin/Clavulanate Potassium (Amoxicillin/Clavulanate K 500-125 Mg Tab) 1 tab PO TID [facility] Stop: 05/25/21 09:01 Last Admin: 05/18/21 13:03 Dose: 1 tab Documented by: Amoxicillin/Clavulanate Potassium (Amoxicillin/Clavulanate K 500-125 Mg Tab) 1 tab PO BID [facility] Stop: 05/25/21 09:01 Last Admin: 05/25/21 08:28 Dose: 1 tab Documented by: Apixaban (Apixaban 5 Mg Tab) 5 mg PO BID [facility] Last Admin: 05/26/21 08:28 Dose: 5 mg Documented by: Apixaban (Apixaban 5 Mg Tab) 2.5 mg PO BID [facility] Last Admin: 05/26/21 20:11 Dose: 2.5 mg Documented by: Azithromycin (Azithromycin 250 Mg Tab) 250 mg PO DAILY [facility] Stop: 05/22/21 09:01 Last Admin: 05/22/21 08:50 Dose: 250 mg Documented by: Azithromycin (Azithromycin 500 Mg Tab) 500 mg PO ONETIME ONE Stop: 05/18/21 09:01 Last Admin: 05/18/21 09:06 Dose: 500 mg Documented by: Benzonatate (Benzonatate 100 Mg Cap) 200 mg PO TID PRN PRN Reason: Cough Last Admin: 05/26/21 12:45 Dose: 200 mg Documented by: Bisacodyl (Bisacodyl 10 Mg Supp) 10 mg RECTAL DAILY PRN PRN Reason: Constipation Bumetanide (Bumetanide 1 Mg/4 Ml Mdv) 1 mg IVPUSH ONETIME ONE Stop: 05/27/21 08:19 Last Admin: 05/27/21 08:44 Dose: 1 mg Documented by: Cholecalciferol (Cholecalciferol (Vitamin D3) 25 Mcg Tab) 50 mcg PO DAILY [facility] Last Admin: 05/26/21 08:27 Dose: 50 mcg Documented by: Dexamethasone (Dexamethasone 2 Mg Tab) 6 mg PO DAILY [facility] Stop: 06/01/21 10:01 Last Admin: 05/26/21 08:30 Dose: 6 mg Documented by: Furosemide (Furosemide 40 Mg Tab) 40 mg PO DAILY [facility] Last Admin: 05/26/21 08:33 Dose: 40 mg Documented by: Furosemide (Furosemide 40 Mg Tab) 40 mg PO ONETIME ONE Stop: 05/25/21 18:49 Last Admin: 05/25/21 19:10 Dose: 40 mg Documented by: Furosemide (Furosemide 40 Mg/4 Ml Vial) 40 mg IVPUSH NOW ONE Stop: 05/26/21 15:42 Last Admin: 05/26/21 16:19 Dose: 40 mg Documented by: Hyoscyamine (Hyoscyamine 0.125 Mg Tab.Sl) 0.125 mg SL Q4H PRN PRN Reason: secretions Lidocaine (Lidocaine 4% 1 Each Patch) 2 each TOP DAILY [facility] Last Admin: 05/27/21 09:33 Dose: 2 each Documented by: Lidocaine HCl (Lidocaine 1% 5 Ml Sdv) 3 ml INJECT .STK-MED ONE Stop: 05/05/21 20:01 Loperamide HCl (Loperamide 2 Mg Cap) 2 mg PO Q4H PRN PRN Reason: Diarrhea Last Admin: 05/26/21 20:16 Dose: 2 mg Documented by: Lorazepam (Lorazepam 0.5 Mg Tab) 0.25 mg PO Q4H PRN PRN Reason: Anxiety Last Admin: 05/26/21 08:17 Dose: 0.25 mg Documented by: Lorazepam (Lorazepam 0.5 Mg Tab) 0.5 mg PO Q4H PRN PRN Reason: Anxiety Last Admin: 05/26/21 18:58 Dose: 0.5 mg Documented by: Lorazepam (Lorazepam 2 Mg/Ml Sdv) 0.5 mg IVPUSH Q2H PRN PRN Reason: Agitation Losartan Potassium (Losartan 25 Mg Tab) 25 mg PO DAILY [facility] Last Admin: 05/26/21 08:31 Dose: 25 mg Documented by: Methyl Salicylate (Menthol/Methyl Salicylate 85 Gm Tube) 0 gm TOP TID [facility] Last Admin: 05/26/21 22:12 Dose: Not Given Documented by: Methyl Salicylate (Menthol/Methyl Salicylate 85 Gm Tube) 0 gm TOP TID [facility] Last Admin: 05/27/21 09:31 Dose: 1 applic Documented by: Metoprolol Succinate (Metoprolol Succinate 50 Mg Tab.Er) 50 mg PO DAILY [facility] Last Admin: 05/26/21 08:32 Dose: 50 mg Documented by: Mirtazapine (Mirtazapine 15 Mg Tab) 7.5 mg PO BEDTIME [facility] Last Admin: 05/26/21 20:14 Dose: 7.5 mg Documented by: Miscellaneous Information (Lidocaine Patch) 2 ea TRDERM BEDTIME [facility] Last Admin: 05/26/21 20:15 Dose: 2 ea Documented by: Morphine Sulfate (Morphine 10 Mg/0.5 Ml Oral Syringe) 5 mg SL Q4H PRN PRN Reason: pain/air hunger Last Admin: 05/27/21 08:45 Dose: 5 mg Documented by: Morphine Sulfate (Morphine 2 Mg/Ml Syringe) 1 mg IVPUSH Q30M PRN PRN Reason: air hunger/pain Ondansetron HCl (Ondansetron 4 Mg/2 Ml Sdv) 4 mg IVPUSH Q6H PRN PRN Reason: Nausea/Vomiting Pantoprazole Sodium (Pantoprazole 40 Mg Tab.Cr) 40 mg PO BID@06,17 [facility] Last Admin: 05/11/21 07:21 Dose: Not Given Documented by: Potassium Chloride (Potassium Chloride 10 Meq Tab.Er) 30 meq PO DAILY [facility] Last Admin: 05/26/21 08:19 Dose: 30 meq Documented by: Prednisone (Prednisone 5 Mg Tab) 5 mg PO WITHBREAKFAST [facility] Last Admin: 05/23/21 07:57 Dose: 5 mg Documented by: Prochlorperazine Maleate (Prochlorperazine 25 Mg Supp) 25 mg RECTAL Q12H PRN PRN Reason: Nausea Rosuvastatin Calcium (Rosuvastatin 10 Mg Tab) 10 mg PO DAILY [facility] Last Admin: 05/26/21 08:29 Dose: 10 mg Documented by: Saccharomyces Boulardii (Saccharomyces Boulardii (Probiotic) 250 Mg Cap) 500 mg PO BID [facility] Last Admin: 05/26/21 20:12 Dose: 500 mg Documented by: Sodium Chloride (Sodium Chloride 0.9% 10 Ml Syringe) 10 ml FLUSH ASDIRECTED PRN PRN Reason: Keep Vein Open Last Admin: 05/27/21 08:44 Dose: 10 ml Documented by: Tamsulosin HCl (Tamsulosin 0.4 Mg Cap.Er) 0.4 mg PO DAILY [facility] Last Admin: 05/26/21 08:30 Dose: 0.4 mg Documented by: Tramadol HCl (Tramadol 50 Mg Tab) 50 mg PO BEDTIME [facility] Last Admin: 05/25/21 20:01 Dose: 50 mg Documented by: Triamcinolone Acetonide (Triamcinolone Acetonide 40 Mg/Ml 1 Ml Sdv) 40 mg INJECT .STK-MED ONE Stop: 05/05/21 20:01 Vit C/Vit E/Zinc/Copper/Lutein (Lutein/Minerals/Vitamin C/Vitamin E Acetate Cap) 1 each PO DAILY [facility] Last Admin: 05/26/21 08:36 Dose: 1 each Documented by:
== END 2021-05-27 15:50 | disposition expired | DRG 947 ==
LOC: FB.MS 14:40
PROVIDERS: ADMIT Student in an Organized Health Care Education/Training Program; ATTEND Family Medicine
PROC: 3E0U33Z Introduction of Anti-inflammatory into Joints, Percutaneous Approach (ICD-10-PCS; 2021-05-05)
PROC: 3E0U33Z Introduction of Anti-inflammatory into Joints, Percutaneous Approach (ICD-10-PCS; 2021-05-05)
PROC: 3E0DX3Z Introduction of Anti-inflammatory into Mouth and Pharynx, External Approach (ICD-10-PCS; 2021-05-17)
PROC: 5A0935A Assistance with Respiratory Ventilation, Less than 24 Consecutive Hours, High Flow/Velocity Cannula (ICD-10-PCS; principal; 2021-05-26)
DX: R53.1 Weakness (principal); J96.01 Acute respiratory failure with hypoxia; I50.33 Acute on chronic diastolic (congestive) heart failure; U07.1 COVID-19; J12.82 Pneumonia due to coronavirus disease 2019; M33.90 Dermatopolymyositis, unspecified, organ involvement unspecified; D84.821 Immunodeficiency due to drugs; I48.91 Unspecified atrial fibrillation; J84.10 Pulmonary fibrosis, unspecified; I25.10 Atherosclerotic heart disease of native coronary artery without angina pectoris; E78.5 Hyperlipidemia, unspecified; I11.0 Hypertensive heart disease with heart failure; M85.80 Other specified disorders of bone density and structure, unspecified site; Z51.5 Encounter for palliative care; Z66 Do not resuscitate; R19.5 Other fecal abnormalities; M17.0 Bilateral primary osteoarthritis of knee; I35.0 Nonrheumatic aortic (valve) stenosis; R26.9 Unspecified abnormalities of gait and mobility; R13.10 Dysphagia, unspecified; G89.29 Other chronic pain; J30.9 Allergic rhinitis, unspecified; Z95.2 Presence of prosthetic heart valve; Z90.49 Acquired absence of other specified parts of digestive tract; Z90.710 Acquired absence of both cervix and uterus; Z88.2 Allergy status to sulfonamides; Z88.8 Allergy status to other drugs, medicaments and biological substances; Z79.52 Long term (current) use of systemic steroids; Z79.899 Other long term (current) drug therapy; Z95.5 Presence of coronary angioplasty implant and graft; Z82.49 Family history of ischemic heart disease and other diseases of the circulatory system; Z83.3 Family history of diabetes mellitus; Z87.440 Personal history of urinary (tract) infections; Z91.81 History of falling
CPT/HCPCS: 36415; 51702; 71045; 71046; 80048; 81001; 82270; 83880; 85025; 86140; 94150; 97110-GO; 97110-GP; 97112-GP; 97116-GP; 97161-GP; 97165-GO; 97530-GO; 97530-GP; 97535-GO; A9270-GY; J1940; J3301; J3490; J7512; J8540; U0002